=== PATIENT | male | born 1940 | race Caucasian/White ===

== ENCOUNTER → 2017-07-29 15:21 | Outpatient (CLI) | payer MEDICARE, SELFPAY ==
--- NOTE | 2017-07-29 15:23 | ECHOD_ITS ---
Reason For Study: AFIB Procedure This was a 2D Doppler, Color Flow transthoracic echocardiogram. Exam performed in department. Left Ventricle Normal LV size. Severe concentric left ventricular hypertrophy. The estimated ejection fraction is 37 %. Moderate global left ventricular systolic dysfunction. There is moderate global hypokinesis of the left ventricle. Right Ventricle Normal RV size. Normal systolic function. Atria The left atrium is mildly enlarged. The right atrium is mildly enlarged. Patent foramen ovale. Mitral Valve Normal mitral valve. Mild (1+) eccentric mitral valve insufficiency. Tricuspid Valve Normal tricuspid valve. Mild (1+) tricuspid valve insufficiency. Pulmonary artery systolic pressure is 32 mmHg. Aortic Valve Trisinus/trileaflet aortic valve. Mild focal aortic valve calcification. Trivial aortic valve insufficiency. Pulmonic Valve Normal pulmonic valve. Great Vessels Normal aortic root. The pulmonary artery is normal size. Normal inferior vena cava. Pericardium/Pleural No pericardial effusion. Medication 20 gauge I.V. with prn adaptor inserted into right arm. Performed a rapid injection of agitated mix of 9 cc saline and 1cc air to assess for atrial septal defect. MMode/2D Measurements & Calculations LVIDd: 3.7 cm IVSd: 1.7 cm LVOT diam: 2.0 cm LVIDs: 3.0 cm LVPWd: 1.7 cm LVOT area: 3.2 cm2 RVDd: 3.8 cm FS: 20.5 % Ao root diam: 4.1 cm LAV(MOD-bp): 76.3 ml LA dimension: 4.5 cm LAV(MOD-bp) Indexed: 36.2 ml/m2 LA A4 area: 22.6 cm2 LAV(MOD-sp2): 78.6 ml LAV(MOD-sp4): 65.6 ml RA A4 area: 22.9 cm2 Doppler Measurements & Calculations MV E max moriah: 86.5 cm/sec Ao V2 max: 115.7 cm/sec LV V1 max: 68.4 cm/sec Ao max P.4 mmHg LV V1 max P.9 mmHg BRIDGET(V,D): 1.9 cm2 TR max moriah: 260.5 cm/sec TR max P.2 mmHg Interpretation Summary Moderate global left ventricular systolic dysfunction. The estimated ejection fraction is 37 %. Severe concentric left ventricular hypertrophy. Normal LV size. Pulmonary artery systolic pressure is 32 mmHg. Patent foramen ovale. Ordering Physician: Christ Ruiz Referring Physician: CAN MATHIAS Performed By: Monalisa Wade RDCS, RVT
[2017-07-29 17:09] LABS: Anion Gap 5 (5-15); BUN 18 mg/dL (7-18); BUN/Creat Ratio 17.3 RATIO (10-20); Calcium,Total 9.1 mg/dL (8.5-10.1); Chloride 106 mmol/L (98-107); Creatinine, Serum 1.04 mg/dL (0.70-1.30); EST Glomerular Filtration Rate 74 mL/min (>60); Est Glom Filt Rate - Afr Amer 89 mL/min (>60); Glucose 90 mg/dL (74-106); Sodium Level 141 mmol/L (136-145)
[2017-07-29 17:20] LABS: BNP,B-Type NATRIURETIC PEPTIDE 281.8 pg/mL (0-100)
== END ==
PROVIDERS: Family Provider Family Medicine; PCP Family Medicine; Visit Provider Internal Medicine Cardiovascular Disease
DX: I34.0 Nonrheumatic mitral (valve) insufficiency (principal); R06.00 Dyspnea, unspecified
CPT/HCPCS: 80048; 83880; 93306; A4216

== ENCOUNTER → 2017-09-10 10:01 | Outpatient (CLI) | payer MEDICARE, SELFPAY ==
[2017-09-10 11:55] LABS: Anion Gap 4 (5-15); BUN 23 mg/dL (7-18); BUN/Creat Ratio 19.5 RATIO (10-20); Calcium,Total 9.4 mg/dL (8.5-10.1); Chloride 104 mmol/L (98-107); Creatinine, Serum 1.18 mg/dL (0.70-1.30); EST Glomerular Filtration Rate 64 mL/min (>60); Est Glom Filt Rate - Afr Amer 77 mL/min (>60); Glucose 94 mg/dL (74-106); Potassium 4.7 mmol/L (3.5-5.1); Sodium Level 140 mmol/L (136-145)
== END ==
PROVIDERS: Family Provider Family Medicine; PCP Family Medicine; Visit Provider Internal Medicine Cardiovascular Disease
DX: I50.22 Chronic systolic (congestive) heart failure (principal); I48.1 Persistent atrial fibrillation; R94.31 Abnormal electrocardiogram [ECG] [EKG]; I34.0 Nonrheumatic mitral (valve) insufficiency; R06.00 Dyspnea, unspecified; I45.89 Other specified conduction disorders; E78.5 Hyperlipidemia, unspecified; Z86.79 Personal history of other diseases of the circulatory system; Z98.890 Other specified postprocedural states
CPT/HCPCS: 36415; 80048

== ENCOUNTER → 2017-09-25 09:34 | Outpatient (CLI) | payer MEDICARE, SELFPAY ==
[2017-09-25 11:25] LABS: AST(SGOT) 28 U/L (15-37); Alanine Aminotransfer ALT/SGPT 29 U/L (16-61); Albumin, Serum 3.6 g/dL (3.2-5.0); Alkaline Phosphatase 144 U/L (45-117); Anion Gap 5 (5-15); BUN 19 mg/dL (7-18); BUN/Creat Ratio 16.5 RATIO (10-20); Bilirubin, Direct 0.17 mg/dL (0.00-0.30); Chloride 107 mmol/L (98-107); Cholesterol 214 mg/dL (200); Creatinine, Serum 1.15 mg/dL (0.70-1.30); EST Glomerular Filtration Rate 66 mL/min (>60); Est Glom Filt Rate - Afr Amer 80 mL/min (>60); Globulin 3.8 g/dL (2.2-4.2); Glucose 100 mg/dL (74-106); High Density Lipoprotein 43 mg/dL; Magnesium 2.4 mg/dL (1.6-2.6); Potassium 3.8 mmol/L (3.5-5.1); Protein, Total 7.4 g/dL (6.4-8.2); Sodium Level 142 mmol/L (136-145); Triglycerides 111 mg/dL; Very Low Density Lipoprotein 22 mg/dL (5-40)
[2017-09-26 20:07] LABS: Albumin 3.6 g/dL (2.9-4.4); Alpha-1-Globulins 0.2 g/dL (0.0-0.4); Alpha-2-Globulins 0.7 g/dL (0.4-1.0); Free Lambda Light Chains 14.7 mg/L (5.7-26.3); Gamma Globulin 1.4 g/dL (0.4-1.8); Immunoglobulin A 186 mg/dL (61-437); Immunoglobulin G 1431 mg/dL (700-1600); Immunoglobulin M 45 mg/dL (15-143); PROEL- TOTAL PROTEIN 6.8 g/dL (6.0-8.5)
== END ==
PROVIDERS: Family Provider Family Medicine; PCP Family Medicine; Visit Provider Internal Medicine Cardiovascular Disease
DX: E78.5 Hyperlipidemia, unspecified (principal); R06.00 Dyspnea, unspecified; I50.22 Chronic systolic (congestive) heart failure; I34.0 Nonrheumatic mitral (valve) insufficiency; I45.89 Other specified conduction disorders; I48.1 Persistent atrial fibrillation; Z98.890 Other specified postprocedural states; Z86.79 Personal history of other diseases of the circulatory system
CPT/HCPCS: 80048; 80061; 80076; 82784; 83735; 83883; 84165; 86334

== ENCOUNTER → 2017-12-09 16:37 | Outpatient (CLI) | payer MEDICARE, SELFPAY ==
--- NOTE | 2017-12-09 16:41 | RAD_ITS ---
STUDY: X-RAY CHEST REASON FOR EXAM: Male, 77 years old. Cough x3 weeks TECHNIQUE: PA and lateral views of the chest. COMPARISON: None. FINDINGS: Right perihilar granulomas. The lungs are clear and expanded. There is no demonstrated pleural abnormality. Normal size heart. Normal mediastinum and gracia. Normal visualized pulmonary arteries. Normal visualized aortic arch and descending thoracic aorta. Normal visualized thoracic spine. Normal visualized ribs, clavicles, and shoulders. There is no demonstrated abnormality of the visualized soft tissue structures of the upper abdomen. RAD/Chest PA and Lateral IMPRESSION: Normal x-ray examination of the chest. Electronically Signed: Jian Ventura DO at 18:04 EDT Tel , Service support ,
== END ==
PROVIDERS: Family Provider Family Medicine; PCP Family Medicine; Visit Provider Nurse Practitioner Family
DX: R05 Cough (principal)
CPT/HCPCS: 71046

== ENCOUNTER → 2018-04-27 13:48 | Outpatient (CLI) | payer MEDICARE, SELFPAY ==
--- NOTE | 2018-04-27 13:50 | ECHOD_ITS ---
Reason For Study: ARRHYTHMIA Procedure This was a 2D Doppler, Color Flow transthoracic echocardiogram. Exam performed in department. Left Ventricle Normal LV size. Severe concentric left ventricular hypertrophy. The estimated ejection fraction is 45 %. Stage 3 diastolic dysfunction. There is mild global hypokinesis of the left ventricle. Atria Normal left atrium. Normal right atrium. Tricuspid Valve Normal tricuspid valve. Mild (1+) tricuspid valve insufficiency. Pulmonary artery systolic pressure is 30 mmHg. Aortic Valve Trisinus/trileaflet aortic valve. Mild focal aortic valve calcification. Pulmonic Valve Normal pulmonic valve. Great Vessels Normal aortic root. The pulmonary artery is normal size. Normal inferior vena cava. Pericardium/Pleural No pericardial effusion. MMode/2D Measurements & Calculations LVIDd: 4.1 cm IVSd: 1.7 cm Ao root diam: 3.3 cm LVIDs: 3.3 cm LVPWd: 1.6 cm RVDd: 3.8 cm FS: 19.7 % LAV(MOD-bp): 67.4 ml LA A4 area: 22.0 cm2 LA dimension(2D): 3.8 cm LAV(MOD-bp) Indexed: 32.3 ml/m2 LAV(MOD-sp2): 62.3 ml LAV(MOD-sp4): 70.1 ml RA A4 area: 21.0 cm2 Doppler Measurements & Calculations MV E max moriah: 85.1 cm/sec Ao V2 max: 118.3 cm/sec LV V1 max: 85.1 cm/sec MV A max moriah: 36.7 cm/sec Ao max P.6 mmHg LV V1 max P.9 mmHg MV E/A: 2.3 PA V2 max: 70.1 cm/sec TR max moriah: 254.3 cm/sec TR max P.9 mmHg Interpretation Summary Normal LV size. The estimated ejection fraction is 45 %. Stage 3 diastolic dysfunction. Severe concentric left ventricular hypertrophy. Mild (1+) tricuspid valve insufficiency. The global longitudinal strain = -10% (abnormal). Compared to previous study, the left ventricular systolic function has improved.. Ordering Physician: Christ Ruiz Referring Physician: Kev Infante Performed By: Sadia Valenzuela, PENELOPE, RVT
== END ==
PROVIDERS: Family Provider Family Medicine; PCP Family Medicine; Referring Provider Internal Medicine Cardiovascular Disease; Visit Provider Internal Medicine Cardiovascular Disease
DX: I42.8 Other cardiomyopathies (principal)
CPT/HCPCS: 93306

== ENCOUNTER → 2018-09-22 | Outpatient (CLI) | payer MEDICARE, SELFPAY ==
[2018-09-22 13:06] VITALS: BMI 29.2
[2018-09-22 14:40] LABS: BNP,B-Type NATRIURETIC PEPTIDE 195.6 pg/mL (0-100)
[2018-09-22 14:41] LABS: Anion Gap 7 (5-15); BUN 20 mg/dL (7-18); BUN/Creat Ratio 15.2 RATIO (10-20); Chloride 102 mmol/L (98-107); Creatinine, Serum 1.32 mg/dL (0.70-1.30); EST Glomerular Filtration Rate 56 mL/min (>60); Est Glom Filt Rate - Afr Amer 68 mL/min (>60); Glucose 94 mg/dL (74-106); Magnesium 2.6 mg/dL (1.6-2.6); Potassium 3.8 mmol/L (3.5-5.1); Sodium Level 140 mmol/L (136-145); Thyroid Stim Hormone (TSH) 1.56 uIU/mL (0.358-3.74)
== END | disposition home or self-care (01) ==
PROVIDERS: Family Provider Family Medicine; PCP Family Medicine; Referring Provider Internal Medicine Cardiovascular Disease; Visit Provider Internal Medicine Cardiovascular Disease
DX: I42.8 Other cardiomyopathies (principal); I49.8 Other specified cardiac arrhythmias
CPT/HCPCS: 36415; 80048; 83735; 83880; 84443

== ENCOUNTER → 2018-11-16 | Outpatient (CLI) | payer MEDICARE, SELFPAY ==
[2018-09-22 13:06] VITALS: BMI 29.2
[2018-11-16 15:24] LABS: Anion Gap 8 (5-15); BUN 23 mg/dL (7-18); BUN/Creat Ratio 18.4 RATIO (10-20); Calcium,Total 8.9 mg/dL (8.5-10.1); Chloride 105 mmol/L (98-107); Creatinine, Serum 1.25 mg/dL (0.70-1.30); EST Glomerular Filtration Rate 60 mL/min (>60); Est Glom Filt Rate - Afr Amer 72 mL/min (>60); Glucose 85 mg/dL (74-106); Sodium Level 141 mmol/L (136-145)
[2018-11-16 15:31] LABS: BNP,B-Type NATRIURETIC PEPTIDE 298.4 pg/mL (0-100)
== END | disposition home or self-care (01) ==
PROVIDERS: Family Provider Family Medicine; PCP Family Medicine; Referring Provider Internal Medicine Cardiovascular Disease; Visit Provider Internal Medicine Cardiovascular Disease
DX: E78.5 Hyperlipidemia, unspecified (principal); I50.22 Chronic systolic (congestive) heart failure; I34.0 Nonrheumatic mitral (valve) insufficiency; I42.8 Other cardiomyopathies; I45.89 Other specified conduction disorders; I48.1 Persistent atrial fibrillation; I51.9 Heart disease, unspecified; R06.00 Dyspnea, unspecified; R94.31 Abnormal electrocardiogram [ECG] [EKG]; Z86.79 Personal history of other diseases of the circulatory system; Z98.890 Other specified postprocedural states
CPT/HCPCS: 36415; 80048; 83880

== ENCOUNTER → 2018-11-26 | Outpatient (CLI) | payer MEDICARE, SELFPAY ==
[2018-09-22 13:06] VITALS: BMI 29.2
--- NOTE | 2018-11-26 10:49 | ECHOD_ITS ---
Reason For Study: CHF Procedure This was a 2D Doppler, Color Flow transthoracic echocardiogram. Exam performed in department. Left Ventricle Normal LV size. Moderate concentric left ventricular hypertrophy. The estimated ejection fraction is 30 %. Moderately severe global left ventricular systolic dysfunction. Stage 3 diastolic dysfunction. There is moderate to severe global hypokinesis of the left ventricle. Right Ventricle Normal RV size. Normal systolic function. Atria The left atrium is moderately enlarged. Normal right atrium. Mitral Valve Normal mitral valve. Tricuspid Valve Normal tricuspid valve. Aortic Valve Normal aortic valve. Pulmonic Valve Normal pulmonic valve. Great Vessels Normal aortic root. The pulmonary artery is normal size. Normal inferior vena cava. Pericardium/Pleural No pericardial effusion. MMode/2D Measurements & Calculations LVIDd: 4.5 cm IVSd: 1.4 cm Ao root diam: 3.9 cm LVIDs: 3.9 cm LVPWd: 1.5 cm RVDd: 3.8 cm FS: 13.8 % LAV(MOD-bp): 77.6 ml LA A4 area: 25.2 cm2 LA dimension(2D): 4.2 cm LAV(MOD-bp) Indexed: 37.2 ml/m2 LAV(MOD-sp2): 60.0 ml LAV(MOD-sp4): 94.8 ml RA A4 area: 19.1 cm2 Doppler Measurements & Calculations MV E max neto: 59.1 cm/sec Lat Peak E' Neto: 6.6 cm/sec Med Peak E' Neto: 3.5 cm/sec MV A max neto: 66.0 cm/sec E/E' lat: 9.0 E/E' med: 16.6 MV E/A: 0.90 Ao V2 max: 95.6 cm/sec LV V1 max: 63.5 cm/sec TR max neto: 274.3 cm/sec Ao max P.7 mmHg LV V1 max P.7 mmHg TR max P.2 mmHg Interpretation Summary Normal LV size. The estimated ejection fraction is 30 %. Moderately severe global left ventricular systolic dysfunction. There is moderate to severe global hypokinesis of the left ventricle. Stage 3 diastolic dysfunction. Compared to previous study, the left ventricular systolic function has worsened.. Ordering Physician: Christ Ruiz Referring Physician: CAN MATHIAS Performed By: Monalisa Wade, PENELOPE, RVT
== END | disposition home or self-care (01) ==
LOC: CVS 10:48
PROVIDERS: Family Provider Family Medicine; PCP Family Medicine; Referring Provider Internal Medicine Cardiovascular Disease; Visit Provider Internal Medicine Cardiovascular Disease
DX: I50.22 Chronic systolic (congestive) heart failure (principal); R06.00 Dyspnea, unspecified; R94.31 Abnormal electrocardiogram [ECG] [EKG]; I34.0 Nonrheumatic mitral (valve) insufficiency; I42.8 Other cardiomyopathies; I45.89 Other specified conduction disorders; I48.1 Persistent atrial fibrillation; I51.9 Heart disease, unspecified; E78.5 Hyperlipidemia, unspecified; Z86.79 Personal history of other diseases of the circulatory system; Z98.890 Other specified postprocedural states
CPT/HCPCS: 93306

== ENCOUNTER 2018-12-04 06:57 | Day surgery (SDC) | payer MEDICARE, SELFPAY ==
[2018-09-22 13:06] VITALS: BMI 29.2
--- NOTE | 2018-12-02 09:30 | RAD_ITS ---
STUDY: X-RAY CHEST REASON FOR EXAM: Male, 78 years old. CHF, precardiac catheter TECHNIQUE: PA and lateral views of the chest. COMPARISON: Prior study of 12/09/2017 FINDINGS: There is a tiny calcified granuloma of the right upper lobe. There is no demonstrated pleural abnormality. Normal size heart. There are calcified right mediastinal nodes. Normal visualized pulmonary arteries. Normal visualized aortic arch and descending thoracic aorta. Normal visualized thoracic spine. Normal visualized ribs, clavicles, and shoulders. There is no demonstrated abnormality of the visualized soft tissue structures of the upper abdomen. RAD/Chest PA and Lateral IMPRESSION: Calcified right mediastinal nodes. Tiny calcified granuloma of the right upper lobe. No acute cardiopulmonary disease process is seen. Chest findings are stable in the interval. Electronically Signed: Jace Davey MD at 23:30 EDT , Service support ,
[2018-12-02 13:22] VITALS: BMI 29.2
[2018-12-02 15:03] LABS: Absolute Lymphocyte Count 1.68 X10^3/ul (0.83-4.51); Absolute Neutrophil Count 6.3 X10^3/uL (2.0-7.7); Basophil# 0.05 X10^3/uL; Basophil% 0.5 % (0-1); Eosinophil# 0.17 X10^3/uL; Eosinophils% 1.9 % (0-5); Hematocrit 43.2 % (40-54); Lymphocyte # 1.68 X10^3/ul (4.0); Lymphocyte % 18.4 % (19-41); Mean Corp Hgb Conc 32.4 g/gl (32-36); Mean Corpuscular Hgb 29.5 pg (27.0-32.0); Mean Corpuscular Volume 91.1 fL (80-94); Mean Platelet Vol. 9.7 fl (6.2-12.0); Monocyte# 0.87 X10^3/uL; Monocyte% 9.5 % (0-10); Neutrophil # 6.33 X10^3/uL (2.7-7.7); Neutrophil % 69.5 % (47-70); POSITIVE COUNT NO; POSITIVE DIFFERENTIAL NO; POSITIVE MORPHOLOGY NO; Platelet Count 395 K/mm3 (150-450); RBC Distribution Width CV 13.6 % (11.6-14.6); RBC Distribution Width SD 44.9 fl (35.1-43.9); Red Blood Count 4.74 M/mm3 (4.6-6.2); White Blood Count 9.1 K/mm3 (4.4-11.0)
[2018-12-02 15:32] LABS: Anion Gap 6 (5-15); BUN 16 mg/dL (7-18); BUN/Creat Ratio 13.2 RATIO (10-20); Calcium,Total 9.3 mg/dL (8.5-10.1); Chloride 102 mmol/L (98-107); Creatinine, Serum 1.21 mg/dL (0.70-1.30); EST Glomerular Filtration Rate 62 mL/min (>60); Est Glom Filt Rate - Afr Amer 75 mL/min (>60); Glucose 104 mg/dL (74-106); Potassium 3.9 mmol/L (3.5-5.1); Sodium Level 140 mmol/L (136-145)
[2018-12-03 09:25] VITALS: BMI 29.2
== END 2018-12-04 13:00 | disposition home or self-care (01) ==
LOC: CLSP 06:59
PROVIDERS: Family Provider Family Medicine; PCP Family Medicine; Referring Provider Internal Medicine Cardiovascular Disease; Visit Provider Internal Medicine Cardiovascular Disease
DX: I42.8 Other cardiomyopathies (principal); I50.22 Chronic systolic (congestive) heart failure; I44.7 Left bundle-branch block, unspecified; I48.0 Paroxysmal atrial fibrillation; I25.10 Atherosclerotic heart disease of native coronary artery without angina pectoris; E78.5 Hyperlipidemia, unspecified; M19.90 Unspecified osteoarthritis, unspecified site; E66.9 Obesity, unspecified; Z68.29 Body mass index [BMI] 29.0-29.9, adult; Z86.79 Personal history of other diseases of the circulatory system; Z79.02 Long term (current) use of antithrombotics/antiplatelets; Z79.899 Other long term (current) drug therapy
CPT/HCPCS: 36415; 71046; 80048; 85025; 93458; 93571; 93572; 99152; 99153; J0153; J7040; C1769; C1887; C1894; Q9967

== ENCOUNTER → 2019-07-19 12:53 | Outpatient (CLI) | payer MEDICARE, SELFPAY ==
[2019-06-18 14:03] VITALS: BMI 28.7
--- NOTE | 2019-07-19 12:54 | ECHOD_ITS ---
Reason For Study: Dyspnea/SOB Procedure This was a 2D Doppler, Color Flow transthoracic echocardiogram. Myocardial strain analysis was performed in this exam to aid in the assessment of cardiac function. Exam performed in department. Left Ventricle Normal LV size. Severe concentric left ventricular hypertrophy. The estimated ejection fraction is 53 %. Left ventricular systolic function is lower limits of normal. Stage 3 diastolic dysfunction. There is borderline global hypokinesis of the left ventricle. Right Ventricle Normal RV size. ICD or pacer leads identified within the right ventricle. Normal systolic function. Atria Normal left atrium. Normal right atrium. Mitral Valve Normal mitral valve. Tricuspid Valve Normal tricuspid valve. Mild (1+) tricuspid valve insufficiency. Pulmonary artery systolic pressure is 35 mmHg. Aortic Valve Normal aortic valve. Trisinus/trileaflet aortic valve. Pulmonic Valve Normal pulmonic valve. Great Vessels Normal aortic root. The pulmonary artery is normal size. Normal inferior vena cava. Pericardium/Pleural No pericardial effusion. MMode/2D Measurements & Calculations LVIDd: 4.0 cm IVSd: 1.8 cm Ao root diam: 3.5 cm LVIDs: 2.9 cm LVPWd: 2.0 cm RVDd: 4.6 cm FS: 26.6 % LAV(MOD-bp): 58.2 ml LVAd ap4: 29.6 cm2 SV(MOD-sp4): 46.7 ml LAV(MOD-bp) Indexed: 28.0 ml/m2 EDV(MOD-sp4): 84.4 ml LAV(MOD-sp2): 59.0 ml EDV(sp4-el): 88.4 ml LAV(MOD-sp4): 55.1 ml LVAs ap4: 18.3 cm2 ESV(MOD-sp4): 37.7 ml ESV(sp4-el): 37.3 ml EF(MOD-sp4): 55.4 % EF(sp4-el): 57.8 % SV(sp4-el): 51.1 ml LA A4 area: 19.5 cm2 LA dimension(2D): 4.5 cm RA A4 area: 20.9 cm2 Doppler Measurements & Calculations MV E max neto: 73.6 cm/sec Lat Peak E' Neto: 6.9 cm/sec Med Peak E' Neto: 3.7 cm/sec MV A max neto: 17.6 cm/sec E/E' lat: 10.7 E/E' med: 20.0 MV E/A: 4.2 Ao V2 max: 138.0 cm/sec LV V1 max: 116.6 cm/sec PA V2 max: 82.8 cm/sec Ao max P.6 mmHg LV V1 max P.4 mmHg Ao V2 mean: 102.8 cm/sec Ao mean P.7 mmHg Ao V2 VTI: 30.0 cm TR max neto: 277.1 cm/sec TR max P.7 mmHg Interpretation Summary Normal LV size. Severe concentric left ventricular hypertrophy. The estimated ejection fraction is 53 %. Left ventricular systolic function is lower limits of normal. Stage 3 diastolic dysfunction. The global longitudinal strain = -10 with apical sparing.% (abnormal). Compared to previous study, the left ventricular systolic function has improved.. The prior global longitudinal strain was -6 % . Ordering Physician: Christ Ruiz Referring Physician: Kev Infante Performed By: Carmen Mora, PENELOPE, RVT
== END ==
PROVIDERS: Family Provider Family Medicine; PCP Family Medicine; Referring Provider Internal Medicine Cardiovascular Disease; Visit Provider Internal Medicine Cardiovascular Disease
DX: I48.0 Paroxysmal atrial fibrillation (principal); I42.8 Other cardiomyopathies; I43 Cardiomyopathy in diseases classified elsewhere; E85.4 Organ-limited amyloidosis; R06.00 Dyspnea, unspecified; Z95.810 Presence of automatic (implantable) cardiac defibrillator
CPT/HCPCS: 93306

== ENCOUNTER → 2019-07-21 15:01 | Outpatient (CLI) | payer MEDICARE, SELFPAY ==
[2019-07-21 14:11] VITALS: BMI 29.0
--- NOTE | 2019-07-21 15:10 | RAD_ITS ---
STUDY: X-RAY CHEST REASON FOR EXAM: Male, 79 years old. checking for lead placement of defibrillator, patient has no complaints TECHNIQUE: PA and lateral views of the chest. COMPARISON: 12/02/2018 FINDINGS: Three lead cardiac conduction device is seen via the left subclavian vein with lead tips projecting over the right atrium and right ventricle, respectively, with left atrial lead projecting over the left atrium/posterior cardiac border. There appears to be a granuloma in the right upper lobe, stable. No airspace consolidation. There is no demonstrated pleural abnormality. Normal size heart. There are calcified mediastinal lymph nodes. Normal visualized pulmonary arteries. Normal visualized aortic arch and descending thoracic aorta. Normal visualized thoracic spine. Normal visualized ribs, clavicles, and shoulders. There is no demonstrated abnormality of the visualized soft tissue structures of the upper abdomen. RAD/Chest PA and Lateral IMPRESSION: Three lead cardiac conduction device is seen via the left subclavian vein with lead tips projecting over the right atrium and right ventricle, respectively, with left atrial lead projecting over the left atrium/posterior cardiac border. No pneumothorax. Electronically Signed: Eugene Sellers MD ([place]) at 12:12 EST , Service support ,
== END ==
PROVIDERS: PCP Family Medicine; Referring Provider Internal Medicine Cardiovascular Disease; Visit Provider Internal Medicine Cardiovascular Disease
DX: Z95.810 Presence of automatic (implantable) cardiac defibrillator (principal)
CPT/HCPCS: 71046

== ENCOUNTER → 2020-01-21 07:37 | Outpatient (CLI) | payer MEDICARE, SELFPAY ==
[2019-07-21 14:11] VITALS: BMI 29.0
--- NOTE | 2020-01-21 07:39 | ECHOD_ITS ---
Reason For Study: S/P Bi-V pacer and adjustment Procedure This was a 2D Doppler, Color Flow transthoracic echocardiogram. Myocardial strain analysis was performed in this exam to aid in the assessment of cardiac function. Exam performed in department. Left Ventricle Normal LV size. Moderate concentric left ventricular hypertrophy. The estimated ejection fraction is 55 %. Stage 3 diastolic dysfunction. No regional wall motion abnormalities noted. Right Ventricle Normal RV size. ICD or pacer leads identified within the right ventricle. Normal systolic function. Atria The left atrium is moderately enlarged. Normal right atrium. Mitral Valve Normal mitral valve. Tricuspid Valve Normal tricuspid valve. Mild (1+) tricuspid valve insufficiency. Pulmonary artery systolic pressure is 36 mmHg. Great Vessels Normal aortic root. The pulmonary artery is normal size. Normal inferior vena cava. Pericardium/Pleural No pericardial effusion. MMode/2D Measurements & Calculations LVIDd: 4.0 cm IVSd: 1.6 cm LVOT diam: 2.1 cm LVIDs: 2.5 cm LVPWd: 1.7 cm LVOT area: 3.4 cm2 RVDd: 4.1 cm FS: 37.1 % LA dimension: 3.9 cm LAV(MOD-bp): 75.7 ml LA A4 area: 23.8 cm2 LAV(MOD-bp) Indexed: 36.3 ml/m2 LAV(MOD-sp2): 62.0 ml LAV(MOD-sp4): 77.9 ml RA A4 area: 19.9 cm2 Time Measurements MV dec time: 0.23 sec Doppler Measurements & Calculations MV E max neto: 86.1 cm/sec Lat Peak E' Neto: 5.4 cm/sec Med Peak E' Neto: 4.4 cm/sec MV A max neto: 47.2 cm/sec E/E' lat: 15.9 E/E' med: 19.4 MV E/A: 1.8 MV V2 max: 93.6 cm/sec MV P1/2t max neto: 94.4 cm/sec Ao V2 max: 139.1 cm/sec MV max P.5 mmHg MV P1/2t: 111.5 msec Ao max P.7 mmHg MV V2 mean: 45.6 cm/sec Ao V2 mean: 92.1 cm/sec MV mean P.00 mmHg MV dec slope: 247.9 cm/sec2 Ao mean P.0 mmHg MV V2 VTI: 26.7 cm MVA(P1/2t): 2.0 cm2 Ao V2 VTI: 29.1 cm MVA(VTI): 2.2 cm2 BRIDGET(I,D): 2.0 cm2 BRIDGET(V,D): 1.9 cm2 LV V1 max: 76.8 cm/sec SV(LVOT): 57.8 ml PA V2 max: 85.7 cm/sec LV V1 max P.5 mmHg LV V1 mean P.3 mmHg LV V1 mean: 52.0 cm/sec LV V1 VTI: 17.1 cm TR max neto: 282.0 cm/sec TR max P.8 mmHg Interpretation Summary Normal LV size. Moderate concentric left ventricular hypertrophy. The estimated ejection fraction is 55 %. Pulmonary artery systolic pressure is 36 mmHg. Mild (1+) tricuspid valve insufficiency. Stage 3 diastolic dysfunction. Compared to previous study, the left ventricular systolic function is the same.. The global longitudinal strain = -13.9% (abnormal). The prior global longitudinal strain was -10 % . Ordering Physician: Christ Ruiz Referring Physician: Kev Infante Performed By: Raudel Alvarez RCS
== END ==
PROVIDERS: PCP Family Medicine; Referring Provider Internal Medicine Cardiovascular Disease; Visit Provider Internal Medicine Cardiovascular Disease
DX: E85.4 Organ-limited amyloidosis (principal); I43 Cardiomyopathy in diseases classified elsewhere; I42.8 Other cardiomyopathies; I25.10 Atherosclerotic heart disease of native coronary artery without angina pectoris; I48.0 Paroxysmal atrial fibrillation; I47.1 Supraventricular tachycardia; I34.0 Nonrheumatic mitral (valve) insufficiency; I50.42 Chronic combined systolic (congestive) and diastolic (congestive) heart failure; Z95.810 Presence of automatic (implantable) cardiac defibrillator
CPT/HCPCS: 93306

== ENCOUNTER → 2020-01-26 13:48 | Outpatient (CLI) | payer MEDICARE, SELFPAY ==
[2020-01-26 13:11] VITALS: BMI 30.2
[2020-01-26 14:40] LABS: BNP,B-Type NATRIURETIC PEPTIDE 346.8 pg/mL (0-100)
[2020-01-26 14:48] LABS: Anion Gap 6 (5-15); BUN 27 mg/dL (7-18); BUN/Creat Ratio 18.6 RATIO (10-20); Calcium,Total 9.2 mg/dL (8.5-10.1); Chloride 107 mmol/L (98-107); Creatinine, Serum 1.45 mg/dL (0.70-1.30); EST Glomerular Filtration Rate 50 mL/min (>60); Est Glom Filt Rate - Afr Amer 60 mL/min (>60); Glucose 142 mg/dL (74-106); Sodium Level 139 mmol/L (136-145)
== END ==
PROVIDERS: PCP Family Medicine; Referring Provider Internal Medicine Cardiovascular Disease; Visit Provider Internal Medicine Cardiovascular Disease
DX: R06.00 Dyspnea, unspecified (principal)
CPT/HCPCS: 36415; 80048; 83880

== ENCOUNTER 2020-06-23 12:34 | Outpatient (CLI) | payer MEDICARE, SELFPAY ==
[2020-01-26 13:11] VITALS: BMI 30.2
[2020-06-23] VITALS (7 sets, daily range): BP systolic 117–129; BP diastolic 52–88; PULSE 58–85; RESP 16–20; TEMP 36–37.2; O2SAT 99–100; BMI 28.7
== END 2020-06-23 15:30 | disposition home or self-care (01) ==
LOC: MS2OUT 12:35 → MS2 12:35
PROVIDERS: PCP Family Medicine; Referring Provider Nurse Practitioner Acute Care; Visit Provider Nurse Practitioner Acute Care
DX: U07.1 COVID-19 (principal)
CPT/HCPCS: 96365; J7050; M0239; Q0239

== ENCOUNTER → 2020-07-12 14:32 | Outpatient (CLI) | payer MEDICARE, SELFPAY ==
[2020-07-11 16:35] VITALS: BMI 29.2
--- NOTE | 2020-07-12 14:45 | RAD_ITS ---
STUDY: X-RAY CHEST REASON FOR EXAM: Male, 80 years old. Chronic cough, post COVID TECHNIQUE: PA and lateral views of the chest. COMPARISON: Comparison is made with prior study dated 07/21/2019. FINDINGS: Hyperinflation. There now is evidence of bilateral patchy pulmonary infiltrates worse in the right hemithorax. Normal size heart. A left-sided dual-chamber pacemaker is seen. There are calcified mediastinal lymph nodes. Normal visualized pulmonary arteries. Normal visualized aortic arch and descending thoracic aorta. There are diffuse degenerative changes of the visualized thoracic spine. A metallic pin is seen in the right humeral head. There is no demonstrated abnormality of the visualized soft tissue structures of the upper abdomen. RAD/Chest PA and Lateral IMPRESSION: Patchy bilateral pulmonary infiltrates worse in the right hemithorax. Electronically Signed: Abraham Moffett MD at 15:24 EST , Service support ,
== END ==
PROVIDERS: PCP Family Medicine; Referring Provider Family Medicine; Visit Provider Family Medicine
DX: U07.1 COVID-19 (principal)
CPT/HCPCS: 71046

== ENCOUNTER → 2020-08-10 15:19 | Outpatient (CLI) | payer MEDICARE, SELFPAY ==
[2020-07-11 16:35] VITALS: BMI 29.2
[2020-08-10 11:00] VITALS: BMI 28.8
--- NOTE | 2020-08-10 15:21 | US_ITS ---
STUDY: RENAL ULTRASOUND - COMPLETE REASON FOR EXAM: Male, 80 years old. Decreased urine flow. TECHNIQUE: Ultrasound evaluation of the kidneys was performed with real-time and static aparicio-scale imaging. COMPARISON: None. FINDINGS: RIGHT KIDNEY: Normal location of the right kidney, which is normal in size. The right kidney measures 10.7 cm. There is a normal cortex of the right kidney. The renal cortex measures 1.1 cm. There is no right renal mass or cyst. There are no right renal calculi. There is no right hydronephrosis. DISTAL RIGHT URETER: There is non-visualization of the distal right ureter. There is no demonstrated right ureterovesical junction calculus. There is a visualized right ureteral jet. LEFT KIDNEY: Normal location of the left kidney, which is normal in size. The left kidney measures 10.5 cm. There is a normal cortex of the left kidney. The renal cortex measures 1.2 cm. There is a 1.8 x 1.3 x 1.3 cm simple cyst in the cortex. There are no left renal calculi. There is no left hydronephrosis. DISTAL LEFT URETER: There is non-visualization of the distal left ureter. There is no demonstrated left ureterovesical junction calculus. There is a visualized left ureteral jet. BLADDER: The distended urinary bladder has a volume of 78 ml. The empty urinary bladder has a volume of 7 ml. There is a normal wall thickness of the distended urinary bladder. There is no demonstrated mass within the urinary bladder. There are no demonstrated bladder calculi. Incidental finding is the presence of multiple calcified granulomata in the spleen. US/Kidney and Bladder IMPRESSION: Normal ultrasound of the kidneys and urinary bladder. Electronically Signed: Mau Soriano DO at 23:53 EST Tel [phone], Service support ,
== END ==
PROVIDERS: PCP Family Medicine; Referring Provider Family Medicine; Visit Provider Family Medicine
DX: N34.3 Urethral syndrome, unspecified (principal)
CPT/HCPCS: 76770

== ENCOUNTER → 2020-09-18 13:38 | Outpatient (CLI) | payer MEDICARE, SELFPAY ==
[2020-09-18 14:49] LABS: BNP,B-Type NATRIURETIC PEPTIDE 325.4 pg/mL (0-100)
[2020-09-18 14:50] LABS: Anion Gap 4 (5-15); BUN 22 mg/dL (7-18); Calcium,Total 9.5 mg/dL (8.5-10.1); Chloride 107 mmol/L (98-107); Creatinine, Serum 1.47 mg/dL (0.70-1.30); EST Glomerular Filtration Rate 49 mL/min (>60); Est Glom Filt Rate - Afr Amer 59 mL/min (>60); Glucose 98 mg/dL (74-106); Potassium 4.6 mmol/L (3.5-5.1); Sodium Level 138 mmol/L (136-145)
== END ==
PROVIDERS: PCP Family Medicine; Referring Provider Internal Medicine Cardiovascular Disease; Visit Provider Internal Medicine Cardiovascular Disease
DX: R06.00 Dyspnea, unspecified (principal); I25.10 Atherosclerotic heart disease of native coronary artery without angina pectoris; E85.4 Organ-limited amyloidosis; I43 Cardiomyopathy in diseases classified elsewhere; I42.8 Other cardiomyopathies; I50.42 Chronic combined systolic (congestive) and diastolic (congestive) heart failure; Z95.810 Presence of automatic (implantable) cardiac defibrillator
CPT/HCPCS: 36415; 80048; 83880

== ENCOUNTER 2020-09-20 21:52 | Inpatient (IN) | payer MEDICARE, SELFPAY ==
[2020-09-18 12:40] VITALS: BMI 29.8
[2020-09-20] VITALS (14 sets, daily range): BP systolic 83–147; BP diastolic 25–120; PULSE 64–73; RESP 13–18; TEMP 36.8; O2SAT 96–100; BMI 28.6; BMI 28.7
--- NOTE | 2020-09-20 18:16 | ED.RN ---
PT ARRIVED TO [facility] ER AT 181. 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
[2020-09-20 18:40] LABS: Absolute Lymphocyte Count 1.92 X10^3/uL (0.83-4.51); Absolute Neutrophil Count 9.1 X10^3/uL (2.0-7.7); Basophil% 0.8 % (0-1); Eosinophil# 0.12 X10^3/uL; Hematocrit 40.6 % (40-54); Lymphocyte # 1.92 X10^3/ul (4.0); Lymphocyte % 15.3 % (19-41); Mean Corpuscular Volume 93.8 fL (80-94); Mean Platelet Vol. 10.5 fl (6.2-12.0); Monocyte# 1.28 X10^3/uL; Monocyte% 10.2 % (0-10); NRBC Flagged by Analyzer 0 % (0-5); Neutrophil # 9.07 X10^3/uL (2.7-7.7); Neutrophil % 72.1 % (47-70); Platelet Count 407 K/mm3 (150-450); RBC Distribution Width CV 13.5 % (11.6-14.6); RBC Distribution Width SD 46.6 fl (35.1-43.9); Red Blood Count 4.33 M/mm3 (4.6-6.2); White Blood Count 12.6 K/mm3 (4.4-11.0)
[2020-09-20 18:51] LABS: International Normalized Ratio 1.3; Partial Thromboplast Time 28.4 Seconds (24.1-36.2); Prothrombin Time (Protime)PT. 15.5 SECONDS (11.7-14.9)
--- NOTE | 2020-09-20 18:51 | CON.PCM_ITS ---
Reason for Consult Date of Consultation: 09/20/20 Reason for Consultation: Syncopal episode and chest discomfort History of Present Illness: The patient is a 80 year old M with a complicated cardiac history who presented to [facility] after experiencing a syncopal episode this afternoon. A neighbor apparently found him on the garage floor after the patient had passed out. He was noted to be conscious when he was seen by his and his immediately called me by phone. He was directed to the hospital at [place]. An EKG was done which was faxed to me. It was a paced rhythm but it demonstrated subtle ST elevation in the inferior leads suspicious for an acute inferior wall myocardial infarction. STEMI was activated and the patient was brought to [facility]. [] He was seen in the office last week for shortness of breath. He is a gentleman with a history of previous atrial tachyarrhythmia nonobstructive coronary disease who had initially presented with shortness of breath and echocardiogram had been performed with demonstrated globally reduced ejection fraction estimated approximately 35-40%. He had been started on carvedilol Lasix and ZENAIDA inhibitor but he did not tolerate the carvedilol and ZENAIDA inhibitor well with his Lasix he did lose some weight and felt better. You do remember that the etiology of the cardio myopathy was not quite clear so he was sent to [facility] where he had a cardiac MRI performed with a suggestion of amyloidosis. However a second opinion sought at [facility] had some questions about the technique that was performed in [place]. He did have some shortness of breath which was noted to be progressive and we did increase his Lasix to 40 mg a day and repeated his echocardiogram which demonstrated global reduction in left ventricular systolic function estimated at 30% with stage III diastolic dysfunction. 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 He was started on tafamidis as well as optimal medical therapy. He eventually had a UNMANNED EQUIPMENT OPERATOR-D device placed in late April 2019. He has been doing well and had a recent echocardiogram which demonstrated an ejection fraction of 53% with stage III diastolic dysfunction and a global longitudinal strain score of -13.9. He has been compliant with his medications and there have been no changes. He did unfortunately contract COVID-19 and did have the monoclonal antibody. He was plagued with a cough but he has since recovered. He had called the office last week complaining of shortness of breath and was seen and was noted to have an elevated natruretic peptide and was placed on diuretic. He was noted to be in an irregular rhythm which was thought to be reversion to his atrial fibrillation tachyarrhythmia. But recheck of his defibrillator demonstrated that it was premature ventricular complexes. His previous defibrillator interrogation in early August did not demonstrate any evidence of atrial fibrillation. Past Medical History Allergies/Adverse Reactions: Allergies aspirin Adverse Reaction (Verified 09/18/20 12:40) Swelling ciprofloxacin Adverse Reaction (Verified 09/18/20 12:40) swelling metoprolol Adverse Reaction (Verified 09/18/20 12:40) weakness and collapse Penicillins Adverse Reaction (Verified 09/18/20 12:40) Swelling Sulfa (Sulfonamide Antibiotics) Adverse Reaction (Verified 09/18/20 12:40) swelling Home Medications: Ambulatory Orders Medication Instructions Recorded tafamidis meglumine 20 mg capsule 80 mg PO DAILY 02/04/19 tadalafil 10 mg tablet 10 mg PO DAILY PRN #30 tab 01/26/20 cholecalciferol (vitamin D3) 25 25 mcg PO DAILY 04/10/20 mcg (1,000 unit) capsule amiodarone 200 mg tablet 200 mg PO DAILY #90 tablet 09/18/20 furosemide 40 mg tablet 40 mg PO DAILY #90 tablet 09/18/20 potassium chloride 20 mEq 20 meq PO DAILY #90 tablet 09/18/20 tablet,extended release Past Medical History (Chronic Problems): Chronic Problems (Last Updated 09/19/20 @ 18:04 by Ifeoma Allen) 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) TTR-wt RV biopsy 02/02/19 Nonischemic cardiomyopathy (Chronic) 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 Denies: Chest Discomfort, Orthopnea, PND, Peripheral Edema, Palpitations, Lightheadedness, Dizziness, Near Syncope Respiratory: Denies: Cough, Sputum Production, Hemoptysis Gastrointestinal: Denies: Hematemesis, Hematochezia, Melena Genitourinary: Denies: Dysuria, Hematuria Muscoloskeletal: Denies: Myalgias Skin: Denies: Rash Neurological: Denies: Dizziness Psychiatric: Denies: Anxiety, Delusions Hematologic/ Lymphatic: Denies: Anemia Subjectve: Pleasant gentleman in no distress. Complaining of mild chest discomfort. Objective: Body Mass Index (BMI) 29.8 General: Awake, Alert, Oriented x 3 HEENT: PERRL, EOMI, Sclera Non Icteric, - - Mild bleeding from the nose. Neck: Supple, Good ROM, No Lymph Node Enlargement Lungs: Clear to auscultation Cardiovascular: Regular Rhythm, Normal S1, Normal S2, No Murmurs, No Rubs, No Gallops Vascular: No Carotid Bruits, Normal Femoral Pulses, Normal Radial Pulses, Normal Dorsalis Pedal Pulse, Normal Posterior Tibial Pulses Abdomen: Bowel Sounds Present, Soft, Non Tender, No HSM, No Organomegaly Extremities: No Cyanosis, No Clubbing, No edema Musculoskeletal: No Erythema Skin: No Rashes Lymphatic: No Lymph Node Enlargement Neurological: No Focal Motor or Sensory Deficit Psych/Mental Status: Appropriate 09/20/20 18:00: WBC 12.6 H, RBC 4.33 L, Hgb 13.0, Hct 40.6, MCV 93.8, MCH 30.0, MCHC 32.0, Plt Count 407, MPV 10.5, Immature Gran % (Auto) 0.600, Neut % (Auto) 72.1 H, Lymph % (Auto) 15.3 L, Jerome % (Auto) 10.2 H, Eos % (Auto) 1.0, Baso % (Auto) 0.8, Absolute Neuts (auto) 9.1 H, Nucleated RBC % 0 Rhythm: EKG: Electrocardiogram demonstrated paced rhythm with ST elevation noted in the inferior leads with reciprocal ST depression noted in 1 and aVL consistent with an acute inferior myocardial infarction in a paced rhythm. ECHO: Stress Test: Cardiac Cath: Cardiac catheterization in 2019 demonstrated mild to moderate disease noted in the LAD and a 60% diagonal lesion PCI: CT Surgery: Holter monitor: EPS: PPM: CXR: Chest CT Scan: Assessment/Plan 1. Acute inferior wall myocardial infarction * Patient presents with a syncopal episode and chest discomfort and is noted to have EKG changes suggestive of an acute inferior wall myocardial infarction. * Patient was taken to the cardiac catheterization lab and underwent coronary intervention. * Patient will be continued on post intervention therapy * Patient does have an aspirin allergy and would be on a 2 B3 inhibitor. * Statins will be instituted * Low-dose beta-yung * 2. Cardiomyopathy * Patient previously was noted to have a nonischemic cardiomyopathy. * His blood pressure has been marginal and has not allowed ZENAIDA inhibitor in the past but we will try this again. * Low-dose beta-yung would also be instituted * 3. Amyloid cardiac disease * Patient has a history of cardiac amyloidosis * Will continue on his tafamidis. * 4. Status post biventricular ICD implantation * Patient is status post biventricular ICD implantation. We will continue with current medical therapy and follow-up in the pacemaker clinic. * * Thank you for allowing me to participate in the care of your patient. Please don't hesitate to call if any issues arise.
[2020-09-20 18:54] LABS: Anion Gap 7 (5-15); BUN 26 mg/dL (7-18); BUN/Creat Ratio 12.4 RATIO (10-20); Calcium,Total 9.8 mg/dL (8.5-10.1); Chloride 102 mmol/L (98-107); Creatinine, Serum 2.09 mg/dL (0.70-1.30); EST Glomerular Filtration Rate 33 mL/min (>60); Est Glom Filt Rate - Afr Amer 40 mL/min (>60); Glucose 158 mg/dL (74-106); Potassium 3.7 mmol/L (3.5-5.1); Sodium Level 136 mmol/L (136-145)
--- NOTE | 2020-09-20 19:13 | ECHOD_ITS ---
Reason For Study: S/P GA Procedure This was a 2D Doppler, Color Flow transthoracic echocardiogram. Exam performed in department. Left Ventricle Normal LV size. Severe concentric left ventricular hypertrophy. The estimated ejection fraction is 40 %. Mild to moderate segmental systolic dysfunction (see wall motion). Posterior-Basal: Hypokinetic. Infero-Basal: Severely Hypokinetic. Basal inferoseptal: Hypokinetic. Mid-Inferior: Hypokinetic. Right Ventricle Normal RV size. ICD or pacer leads identified within the right ventricle. Normal systolic function. Atria The left atrium is mildly enlarged. The right atrium is mildly enlarged. Mitral Valve Normal mitral valve. Mild (1+) eccentric mitral valve insufficiency. Tricuspid Valve Normal tricuspid valve. Mild tricuspid valve insufficiency. Aortic Valve Trisinus/trileaflet aortic valve. Pulmonic Valve Normal pulmonic valve. Great Vessels Normal aortic root. The pulmonary artery is normal size. Normal inferior vena cava. Pericardium/Pleural No pericardial effusion. MMode/2D Measurements & Calculations LVIDd: 3.8 cm IVSd: 1.6 cm LVOT diam: 2.2 cm LVIDs: 2.7 cm LVPWd: 2.1 cm LVOT area: 3.9 cm2 RVDd: 3.9 cm FS: 28.0 % Ao root diam: 3.9 cm LAV(MOD-bp): 75.7 ml EDV(MOD-sp4): 97.5 ml LAV(MOD-bp) Indexed: 36.3 ml/m2 ESV(MOD-sp4): 58.1 ml LAV(MOD-sp2): 67.0 ml EF(MOD-sp4): 40.3 % LAV(MOD-sp4): 79.5 ml EDV(MOD-sp2): 113.0 ml SV(MOD-sp4): 39.3 ml SV(MOD-sp2): 43.8 ml EF(MOD-sp2): 38.8 % LA A4 area: 24.5 cm2 LA dimension(2D): 3.6 cm RA A4 area: 22.4 cm2 Doppler Measurements & Calculations MV E max moriah: 64.4 cm/sec Ao V2 max: 122.0 cm/sec LV V1 max: 94.5 cm/sec Ao max P.0 mmHg LV V1 max P.6 mmHg Ao V2 mean: 82.9 cm/sec LV V1 mean P.8 mmHg Ao mean P.0 mmHg LV V1 mean: 64.0 cm/sec Ao V2 VTI: 18.7 cm LV V1 VTI: 15.1 cm BRIDGET(I,D): 3.1 cm2 BRIDGET(V,D): 3.0 cm2 SV(LVOT): 58.6 ml PA V2 max: 52.2 cm/sec TR max moriah: 148.1 cm/sec TR max P.8 mmHg ECHO/Echo Complete Interpretation Summary Normal LV size. Severe concentric left ventricular hypertrophy. The estimated ejection fraction is 40 %. Mild to moderate segmental systolic dysfunction (see wall motion). Compared to previous study, the left ventricular systolic function has worsened .. Ordering Physician: Christ Ruiz Referring Physician: Billy Infante M.D. Performed By: Olinda Jimenez RDCS
--- NOTE | 2020-09-20 19:23 | ED.RN ---
PATIENT WAS STEMI TRANSFER FROM [facility]. PATIENT WAS PLACED IN COMPUTER FOR REGISTRATION AND ADMITTED TO [facility]. PATIENT WAS DIRECT TO [facility] NEVER SEEN IN THE ER
--- NOTE | 2020-09-20 20:00 | EKG12_ITS ---
Test Reason : AM EKG Blood Pressure : / mmHG Vent. Rate : 074 BPM Atrial Rate : 043 BPM P-R Int : 000 ms QRS Dur : 168 ms QT Int : 512 ms P-R-T Axes : 000 -53 048 degrees QTc Int : 568 ms Electronic ventricular pacemaker No previous ECGs available Confirmed by WARREN STRANGE, JOSE RAMON ([id number]), editorial cartoonist LOVELY RICK ([id number]) on 09/28/2020 11:31:00 AM Referred By: Christ Ruiz Confirmed By:JOSE RAMON KELLEY MD
[2020-09-20] MEDS: 0.9% Normal Saline 1,000 ML 100 ML IV (20:09)
--- NOTE | 2020-09-20 20:09 | CL.I_ITS ---
Patient Name: LUIS FERNANDO MAE Study Date: 09/20/2020 Performing: Diogo Yañez MD Ht: 70 inches 177.8 cm : 1940 Wt: 200.2 lbs 90.71 kg Age: 80 Gender: male BSA: 2.09 PROCEDURE(S) PERFORMED [id number]/COR [id number], BRIGITTE AND/OR PTCA, ARTERY OR GRAFT, SINGLE VESSEL CLINICAL PROFILE AND CO-MORBIDITIES Indications: ACS <= 24 hrs Heart Failure: None Stress/Imaging Stress/Image Study Performed: No CAD Presentations: STEMI. Symptom onset Date/Time: 09/20/20 Time Not Available CONCLUSIONS CAD as described with 100% occlusion of the dRCA. Successful thrombectomy and PTCA of dRCA RECOMMENDATIONS Brilinta for at least 12 months. After 1 year, consider switching to plavix indefinitely as pt. is al lergic to ASA Brilinta for at least 12 months. After 1 year, consider switching to plavix indefinitely as pt. is al lergic to ASA DESCRIPTION OF PROCEDURE The patient arrived to the procedure lab. The risks and benefits of the procedure as well as a full d escription of our services here and lack of surgical backup were fully explained to the patient and/o r their significant other prior to the catheterization. The Timeout was completed, verifying the chadwick ect patient and procedure. The patient's procedural site was prepped and draped in the usual fashion. Local anesthetic was given subcutaneously to right radial region with Lidocaine 2%. Using a modified Seldinger technique, arterial access was obtained via the right radial artery, a 6Fr sheath was inse rted.. Left Coronary Artery selective angiography was performed in multiple views using a 5 Fr. JL3. 5 catheter. Right Coronary Artery selective angiography was then performed in multiple views using a 5 Fr. JR 4 catheter JR 4 Guide catheter was inserted and engaged into the RCA. BMW Guide wire was advanced to the RCA . Priority One inserted Pass # 1 Priority One Removed Priority One inserted Pass # 2 Priority One Rem zeynep Emerge 3.50x12 Balloon catheter was inserted. PTCA balloon inflated at 6 atms for 11 secs. Angio gram performed post balloon dilatation. Runthrough Guide wire was inserted as a sergio wire Priority O ne inserted Pass # 3 Priority One Removed Priority One inserted Pass # 4 Priority One Removed JR 4 Gu david catheter was inserted and engaged into the RCA. Runthrough Guide wire was advanced to the RCA. Em erge 2.50x15 Balloon catheter was inserted. PTCA balloon inflated at 6 atms for 10 secs. PTCA balloon inflated at 6 atms for 10 secs. Angiogram performed post balloon dilatation. The arterial sheath w as pulled and a TR Band was applied for hemostasis w/11ml air CORONARY ANGIOGRAPHY DOMINANCE: Right Dominant LEFT HEART ASSESSMENT Left Ventricular Ejection Fraction: Not assessed due renal insufficiency LEFT MAIN: Mild luminal irregularities LEFT ANTERIOR DESCENDING ARTERY: Mild luminal irregularities DIAGONAL 1: Proximal - 50 % Stenosis CIRCUMFLEX ARTERY: Mild luminal irregularities RIGHT CORONARY ARTERY: DISTAL RCA: 100 % Stenosis INTERVENTION INFORMATION LESION SITE: RCA (Distal) Lesion Complexity: High/C, chronic total occlusion: No, lesion at bifurcation: No, thrombus present: Yes, lesion length: 11` mm, culprit lesion: Yes, Previously treated lesion: No Pre Stenosis: 100 % Pre intervention ORTEGA flow: 0 PROCEDURE: Thrombectomy, Balloon Angioplasty Pt. is allergic to ASA and has h/o angioedema to it. After aspiration and PTCA there was no evidence of underlying plaque at the original lesion site. There was clot further downstream in the RPL branch and thrombectomy and PTCA was done here. The distal end of this branch was still occluded. We felt t hat it will be better to just treat this patient with thrombectomy,PTCA and overnight integrillin and consider re look angiography in 1-2 days rather than proceed with stent placement. Post Stenosis: 0 % Post intervention ORTEGA flow: 3 Lesion Devices: Santana .014 BMW [place] Straight 190cm Medtronic 6 Fr JR4.0 100cm Guide Catheter Terumo Priority One Aspiration Catheter Gerard Sci EMERGE MR 3.50x12 BALLOON Terumo .014 Runthrough Extra Floppy 180cm straight Gerard Sci EMERGE MR 2.50x15 BALLOON COMPLICATIONS No Complications PROCEDURE MEDICATIONS Oxygen: 100 % FiO2 via non-rebreather mask Oxygen: 2 L/min via nasal cannula Oxygen: 4 L/min via nasal cannula Brilinta 180 mg PO @ 09/20/2020 18:40:36 Heparin given IA 09/20/2020 18:27:02 Heparin 4000 unit(s) IV 09/20/2020 18:36:31 Heparin 2000 unit(s) IV 09/20/2020 19:08:32 Verapamil 2.5mg, Ntg 100mcgs, 3000 units of Heparin given IA 09/20/2020 18:27:02 SUMMARY OF HEMODYNAMIC DATA Time AIR REST ECG 18:24:01 AO 107/67 (79) SA 18:30:02 Signed By Diogo Yañez MD On 09/20/2020 20:08:27 Diogo Yañez MD
[2020-09-20 20:32] LABS: Hematocrit 38.6 % (40-54); Hemoglobin 12.5 g/dL (13.0-16.5); Mean Corp Hgb Conc 32.4 g/dL (32-36); Mean Corpuscular Hgb 30.7 pg (27.0-32.0); Mean Corpuscular Volume 94.8 fL (80-94); Mean Platelet Vol. 10.1 fl (6.2-12.0); Platelet Count 365 K/mm3 (150-450); RBC Distribution Width CV 14.1 % (11.6-14.6); Red Blood Count 4.07 M/mm3 (4.6-6.2); White Blood Count 12.8 K/mm3 (4.4-11.0)
--- NOTE | 2020-09-20 20:37 | HP.PCM_ITS ---
<Nicole Salcedo - Last Filed: 09/20/20 20:37> Problem List (1) ST elevation (STEMI) myocardial infarction involving right coronary artery Status: Acute (2) Acute kidney injury superimposed on chronic kidney disease Status: Chronic (3) Cardiac amyloidosis Status: Chronic Comment: TTR-wt RV biopsy 02/02/19 (4) Chronic combined systolic and diastolic CHF (congestive heart failure) Status: Chronic (5) Atherosclerosis of coronary artery of [place] heart without angina pectoris Status: Chronic Qualifiers: Coronary Disease-Associated Artery/Lesion type: [place] artery Qualified Code(s): I25.10 - Atherosclerotic heart disease of [place] coronary artery with out angina pectoris (6) Hyperlipidemia Status: Chronic Qualifiers: Hyperlipidemia type: pure hypercholesterolemia Qualified Code(s): E78.00 - Pure hypercholesterolemia, unspecified; E78.00 - Pure hypercholesterolemia, unspecified; E78.00 - Pure hypercholesterolemia, unspecified; E78.0 - Pure hypercholesterolemia (7) Biventricular ICD (implantable cardioverter-defibrillator) in place Status: Chronic History of Present Illness Date of Admission: 09/20/20 Chief Complaint: Chest pain, syncope The patient is a 80 year old M here today from [facility] following a syncopal episode at home. Patient states he was outside blowing the yard when he became suddenly lightheaded, dizzy, and weak. Patient said he began to stumble and fell onto the driveway where he was found by his neighbor. Patient does not think that he ever lost consciousness but is unsure. Patient was originally seen at [facility] however he follows with Dr. Ruiz outpatient for cardiology and was transferred to [place] for a heart catheterization. Original EKG at [facility] showed STEMI and was the basis for patient transfer. Patient has a medical history of hypertension, hyperlipidemia, cardiac amyloidosis, sclerosis of coronary artery of [place] heart without angina pectoris, and chronic combined systolic and diastolic CHF. Patient biventricular ICD in place. Patient is currently in bed resting comfortably, no distress noted. Patient denies fever, chills, chest pain. Patient reports shortness of breath which has been ongoing and mild nausea. Currently on Integrilin drip per cardiology. 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 of [place] heart without angina pectoris (Chronic) Cardiac amyloidosis (Chronic) TTR-wt RV biopsy 02/02/19 Nonischemic cardiomyopathy (Chronic) Biventricular ICD (implantable cardioverter-defibrillator) in place (Chronic 05/04/19) Atrioventricular node dysfunction (Chronic) Paroxysmal atrial fibrillation (Chronic) Atrial tachycardia, paroxysmal (Chronic) Chronic combined systolic and diastolic CHF (congestive heart failure) (Chronic) Diastolic dysfunction, left ventricle (Chronic) Hyperlipidemia (Chronic) Medical History: Medical History (Last Reviewed 09/20/20 @ 20:47 by Nicole Salcedo NURSE COORDINATOR-C) Multiple premature ventricular complexes (Chronic) I49.49 Atherosclerosis of coronary artery of [place] heart without angina pectoris (Chronic) I25.10 Cardiac amyloidosis (Chronic) E85.4, I43 TTR-wt RV biopsy 02/02/19 Nonischemic cardiomyopathy (Chronic) I42.8 Atrioventricular node dysfunction (Chronic) I45.89 Paroxysmal atrial fibrillation (Chronic) I48.0 Atrial tachycardia, paroxysmal (Chronic) I47.1 Chronic combined systolic and diastolic CHF (congestive heart failure) (Chronic) I50.42 Diastolic dysfunction, left ventricle (Chronic) I51.9 Hyperlipidemia (Chronic) E78.5 Arthritis M19.90 Chronic systolic (congestive) heart failure I50.22 Dysfunction of left eustachian tube H69.82 History of basal cell cancer Z85.828 Obesity E66.9 Vertigo R42 COVID-19 virus detected Onset Date: 06/20/20 U07.1 Allergies aspirin Adverse Reaction (Verified 09/18/20 12:40) Swelling ciprofloxacin Adverse Reaction (Verified 09/18/20 12:40) swelling metoprolol Adverse Reaction (Verified 09/18/20 12:40) weakness and collapse Penicillins Adverse Reaction (Verified 09/18/20 12:40) Swelling Sulfa (Sulfonamide Antibiotics) Adverse Reaction (Verified 09/18/20 12:40) swelling Home Medications: Ambulatory Orders Medication Instructions Recorded tafamidis meglumine 20 mg capsule 80 mg PO DAILY 02/04/19 tadalafil 10 mg tablet 10 mg PO DAILY PRN #30 tab 01/26/20 cholecalciferol (vitamin D3) 25 25 mcg PO DAILY 10/26/20 mcg (1,000 unit) capsule amiodarone 200 mg tablet 200 mg PO DAILY #90 tablet 09/18/20 furosemide 40 mg tablet 40 mg PO DAILY #90 tablet 09/18/20 potassium chloride 20 mEq 20 meq PO DAILY #90 tablet 09/18/20 tablet,extended release Surgical History: Surgical History (Last Reviewed 09/20/20 @ 20:47 by Nicole Salcedo NP-C) Biventricular ICD (implantable cardioverter-defibrillator) in place (Chronic) Onset Date: 05/04/19 Z95.810 H/O elbow surgery Z98.890 H/O knee surgery Z98.890 H/O nasal septoplasty Z98.890 H/O repair of right rotator cuff Z98.890 History of cardioversion Onset Date: 05/07/17 Z98.890 10/05/16 History of left heart catheterization Onset Date: 12/04/18 Z98.890 FFR in the LAD and Diagonal were consistent with stenoses that should be treated medically at this time. History of total left knee replacement Onset Date: 03/2017 Z96.652 Hx of tonsillectomy Z98.890, Z90.89 Left AC Seperation Repair Presence of tooth-root and mandibular implants Z96.5 S/P cryoablation of arrhythmia Onset Date: 10/21/16 Z98.890, Z86.[address] Attila Omer @ [facility] Psychiatric History: No pertinent psych hx Lives: Alone Smoking Status: Never smoker Alcohol: None Drugs: None - *Family History Maternal Family History: Family History (Last Reviewed 09/20/20 @ 20:49 by Nicole Salcedo NP-Penny) Father Cancer Sister Hypertension Mother Diabetes Hypertension History Items: Diabetes Review of Systems Constitutional: Reports: Fatigue. Denies: Chills, Fever, Weight Change HEENT: Denies: Head Aches, Sinus Congestion, Sinus Drainage Cardiovascular: Denies: Chest Pain, Palpitations Respiratory: Reports: Shortness of Breath. Denies: Cough, Shortness of breath at rest, Sputum production Gastrointestinal: Reports: Nausea. Denies: Abdominal Pain, Vomiting Genitourinary: Denies: Dysuria Musculoskeletal: Denies: Joint Pain, Joint Tenderness Skin: Reports: Wounds - Patient has multiple abraded areas to nose and right arm from fall. Denies: Rash Neurological: Denies: Numbness, Tingling, Focal weakness Psychiatric: Denies: Anxiety, Depression, Homicidal Ideations, Suicidal Ideations Hematologic/ Lymphatic: Denies: Easy Bruising, Easy Bleeding VTE Information - Inpt Only VTE Present on Admission: No VTE Mechan Device Prophylaxis: None VTE Pharm Prophylaxis ordered?: No Reason prophylaxis not ordered:: Medical Contraindication - Patient currently receiving Integrilin drip Patient Problems: Active and Suspected Problems (Last Reviewed 09/20/20 @ 20:47 by Nicole Salcedo NP-C) ST elevation (STEMI) myocardial infarction involving right coronary artery (Acute) - Physical Exam Vitals/I&O's: Vital Signs Pulse 69 09/20/20 19:57 Body Mass Index (BMI) 29.8 General: Alert, Oriented x3, Cooperative HEENT: Atraumatic, PERRLA, EOMI, Normocephalic Neck: Supple, No JVD, Negative Carotid Bruits Lungs: Clear to auscultation, Normal air movement, No rhonchi, No wheeze, No rales Cardiovascular: Regular rate, Regular Rhythm, Normal S1, Normal S2 Abdomen: Bowel Sounds Present, Soft, Non Tender Extremities: No edema, Capillary Refill Less than 3 Seconds, Peripheral Pulses Normal Skin: No rashes, No breakdown, Incision - Right wrist cath site puncture, dressing dry and intact, - - Abrasions resulting from fall, nose and right arm Musculoskeletal: No Tenderness to Palpation of Joints or Extremities Neurological: Cranial nerves II-XII grossly intact Psych/Mental Status: Normal Affect, Appropriate Laboratory Results 09/20/20 18:00: WBC 12.6 H, RBC 4.33 L, Hgb 13.0, Hct 40.6, MCV 93.8, MCH 30.0, MCHC 32.0, RDW Std Deviation 46.6 H, RDW Coeff of Karyna 13.5, Plt Count 407, MPV 10.5, Immature Gran % (Auto) 0.600, Neut % (Auto) 72.1 H, Lymph % (Auto) 15.3 L, Mcminn % (Auto) 10.2 H, Eos % (Auto) 1.0, Baso % (Auto) 0.8, Absolute Neuts (auto) 9.1 H, Absolute Lymphs (auto) 1.92, Nucleated RBC % 0 09/20/20 18:00: Sodium 136, Potassium 3.7, Chloride 102, Carbon Dioxide 27.0, Anion Gap 7, BUN 26 H, Creatinine 2.09 H, Est GFR (MDRD) Af Amer 40 L, Est GFR (MDRD) Non-Af 33 L, BUN/Creatinine Ratio 12.4, Glucose 158 H, Calcium 9.8, Troponin I 0.126 H 09/20/20 18:00: PT 15.5 H, INR 1.3, APTT 28.4 09/20/20 20:15: WBC 12.8 H, RBC 4.07 L, Hgb 12.5 L, Hct 38.6 L, MCV 94.8 H, MCH 30.7, MCHC 32.4, RDW Std Deviation 48.0 H, RDW Coeff of Karyna 14.1, Plt Count 365, MPV 10.1 Current Medications Amiodarone HCl (Amiodarone 200 Mg Tablet) 200 mg PO DAILY ISSA Atropine Sulfate (Atropine Sulfate 1 Mg/10 Ml Syringe) 0.5 mg IV UD PRN PRN Reason: HR <50 bpm Cholecalciferol (Cholecalciferol (Vit D3) 25 Mcg Tablet (1,000 Units)) 25 mcg PO DAILY ISSA Furosemide (Furosemide 40 Mg Tablet) 40 mg PO DAILY ISSA Heparin Sodium (Beef Lung) (Heparin Lock 500 Unit/5 Ml In 10 Ml Syringe) 500 unit IV UD PRN PRN Reason: HEPARIN FLUSH Eptifibatide (Integrilin) 75 mg in 100 mls @ 0 mls/hr CONT INF .Q0M ISSA Stop: 09/21/20 08:00 Sodium Chloride () 1,000 mls @ 100 mls/hr IV .Q10H [facility] Non-Formulary Medication (Tafamidis Meglumine [Vyndaqel]) 80 mg PO DAILY ISSA Potassium Chloride (Potassium Chloride Oral Tablet 20 Meq) 20 meq PO DAILYCM [facility] Sodium Chloride (0.9% Normal Saline 500 Ml Iv.Soln.) 500 ml IV BOLUS PRN PRN Reason: VASO-VAGAL PROTOCOL Ticagrelor (Ticagrelor 90 Mg Tablet) 90 mg PO BID [facility] Assessment/Plan All Active Problems (Last Reviewed 09/20/20 @ 20:47 by Nicole Salcedo, ANDREW-C) ST elevation (STEMI) myocardial infarction involving right coronary artery (Acute) 1. ST elevation myocardial infarction involving right coronary artery -Patient [facility] and received angioplasty and thrombectomy of the RCA. Per Dr. Yañez cardiology will complete follow up angiography in 1 to 2 days. -Admit to ICU -EKG shows ventricular paced rhythm, heart rate 67. -Integrilin infusion to continue overnight per cardiology -Will obtain echo in a.m. -EKG every morning and as needed 2. Kidney injury superimposed on chronic kidney disease -Kidney disease stage III, GFR 45-59 -GFR currently 33, BUN 26 creatinine 2.09. -Normal saline 100 ml/hour ordered. -Will recheck CMP in the morning 3. Cardiac amyloidosis -Continue tafamidis. 4. Hyperlipidemia -Will initiate statin therapy 5. Chronic combined systolic and diastolic CHF -Continue home regimen 6. Biventricular ICD in place -EKG shows ventricular paced rhythm DVT prophylaxis-not indicated, patient on Integrilin drip. This patient was seen by PRASANNA Denton under the supervision of Dr. Miranda. <Marcin Miranda - Last Filed: 09/20/20 21:59> History of Present Illness The patient is a 80 year old M [] Past Medical History Medical History: Medical History (Last Reviewed 09/20/20 @ 20:47 by PRASANNA Denton) Multiple premature ventricular complexes (Chronic) I49.49 Atherosclerosis of coronary artery of [place] heart without angina pectoris (Chronic) I25.10 Cardiac amyloidosis (Chronic) E85.4, I43 TTR-wt RV biopsy 02/02/19 Nonischemic cardiomyopathy (Chronic) I42.8 Atrioventricular node dysfunction (Chronic) I45.89 Paroxysmal atrial fibrillation (Chronic) I48.0 Atrial tachycardia, paroxysmal (Chronic) I47.1 Chronic combined systolic and diastolic CHF (congestive heart failure) (Chronic) I50.42 Diastolic dysfunction, left ventricle (Chronic) I51.9 Hyperlipidemia (Chronic) E78.5 Arthritis M19.90 Chronic systolic (congestive) heart failure I50.22 Dysfunction of left eustachian tube H69.82 History of basal cell cancer Z85.828 Obesity E66.9 Vertigo R42 COVID-19 virus detected Onset Date: 06/20/20 U07.1 Allergies aspirin Adverse Reaction (Verified 09/18/20 12:40) Swelling ciprofloxacin Adverse Reaction (Verified 09/18/20 12:40) swelling metoprolol Adverse Reaction (Verified 09/18/20 12:40) weakness and collapse Penicillins Adverse Reaction (Verified 09/18/20 12:40) Swelling Sulfa (Sulfonamide Antibiotics) Adverse Reaction (Verified 09/18/20 12:40) swelling Surgical History: Surgical History (Last Reviewed 09/20/20 @ 20:47 by Nicole Salcedo NP-C) Biventricular ICD (implantable cardioverter-defibrillator) in place (Chronic) Onset Date: 05/04/19 Z95.810 H/O elbow surgery Z98.890 H/O knee surgery Z98.890 H/O nasal septoplasty Z98.890 H/O repair of right rotator cuff Z98.890 History of cardioversion Onset Date: 05/07/17 Z98.890 10/05/16 History of left heart catheterization Onset Date: 12/04/18 Z98.890 FFR in the LAD and Diagonal were consistent with stenoses that should be treated medically at this time. History of total left knee replacement Onset Date: 03/2017 Z96.652 Hx of tonsillectomy Z98.890, Z90.89 Left AC Seperation Repair Presence of tooth-root and mandibular implants Z96.5 S/P cryoablation of arrhythmia Onset Date: 10/21/16 Z98.890, Z86.[address] Attila Omer @ [facility] - *Family History Maternal Family History: Family History (Last Reviewed 09/20/20 @ 20:49 by Nicole Salcedo NP-C) Father Cancer Sister Hypertension Mother Diabetes Hypertension - Physical Exam Vitals/I&O's: Vital Signs Pulse 69 09/20/20 19:57 Weight: 199 lb 11.821 oz Body Mass Index (BMI) 28.6 Intake and Output for Last 24 Hours 09/18/20 09/19/20 09/20/20 23:59 23:59 23:59 Output Total 0 / 0 Balance 0 / 0 Laboratory Results 09/20/20 18:00: WBC 12.6 H, RBC 4.33 L, Hgb 13.0, Hct 40.6, MCV 93.8, MCH 30.0, MCHC 32.0, RDW Std Deviation 46.6 H, RDW Coeff of Karyna 13.5, Plt Count 407, MPV 10.5, Immature Gran % (Auto) 0.600, Neut % (Auto) 72.1 H, Lymph % (Auto) 15.3 L, Mcminn % (Auto) 10.2 H, Eos % (Auto) 1.0, Baso % (Auto) 0.8, Absolute Neuts (auto) 9.1 H, Absolute Lymphs (auto) 1.92, Nucleated RBC % 0 09/20/20 18:00: Sodium 136, Potassium 3.7, Chloride 102, Carbon Dioxide 27.0, Anion Gap 7, BUN 26 H, Creatinine 2.09 H, Est GFR (MDRD) Af Amer 40 L, Est GFR (MDRD) Non-Af 33 L, BUN/Creatinine Ratio 12.4, Glucose 158 H, Calcium 9.8, Troponin I 0.126 H 09/20/20 18:00: PT 15.5 H, INR 1.3, APTT 28.4 09/20/20 20:15: WBC 12.8 H, RBC 4.07 L, Hgb 12.5 L, Hct 38.6 L, MCV 94.8 H, MCH 30.7, MCHC 32.4, RDW Std Deviation 48.0 H, RDW Coeff of Karyna 14.1, Plt Count 365, MPV 10.1 Current Medications Amiodarone HCl (Amiodarone 200 Mg Tablet) 200 mg PO DAILY [facility] Atorvastatin Calcium (Atorvastatin Calcium 40 Mg Tablet) 40 mg PO QHS ISSA Atropine Sulfate (Atropine Sulfate 1 Mg/10 Ml Syringe) 0.5 mg IV UD PRN PRN Reason: HR <50 bpm Cholecalciferol (Cholecalciferol (Vit D3) 25 Mcg Tablet (1,000 Units)) 25 mcg PO DAILY ISSA Furosemide (Furosemide 40 Mg Tablet) 40 mg PO DAILY [facility] Heparin Sodium (Beef Lung) (Heparin Lock 500 Unit/5 Ml In 10 Ml Syringe) 500 unit IV UD PRN PRN Reason: HEPARIN FLUSH Eptifibatide (Integrilin) 75 mg in 100 mls @ 7.248 mls/hr CONT INF .[id number] ISSA Stop: 09/21/20 08:00 Sodium Chloride () 1,000 mls @ 100 mls/hr IV .Q10H [facility] Non-Formulary Medication (Tafamidis Meglumine [Vyndaqel]) 80 mg PO DAILY [facility] Ondansetron HCl (Ondansetron 4 Mg/2 Ml Vial) 4 mg IV Q6H PRN PRN PRN Reason: NAUSEA/VOMITING Potassium Chloride (Potassium Chloride Oral Tablet 20 Meq) 20 meq PO DAILYCM [facility] Sodium Chloride (0.9% Normal Saline 500 Ml Iv.Soln.) 500 ml IV BOLUS PRN PRN Reason: VASO-VAGAL PROTOCOL Ticagrelor (Ticagrelor 90 Mg Tablet) 90 mg PO BID [facility] Assessment/Plan Hospitalist note: I am seeing this patient in conjunction with Nicole Salcedo. I independently seen and examined the patient. History and physical, laboratory data and imaging studies reviewed and I concur with above admission and treatment plan. Patient was directly admitted from outside facility for acute non-STEMI, underwent emergent cardiac catheterization, found to have occlusion of the RCA status post angioplasty and thrombectomy. Patient mentioned that he was outside blowing his yard today, felt dizzy and lightheaded and he fell. He denied loss of consciousness. Later, he developed some chest discomfort and he went to [facility] ER. He was found to have acute STEMI and he was transferred to [facility] for cardiac catheterization. He underwent cardiac catheterization, found to have total occlusion of distal RCA status post angioplasty and thrombectomy. Currently, he is on IV Integrilin drip as well as Brilinta. He does have abrasion on his nose which is bleeding currently. He is chest pain-free. His vital signs are stable. - Physical Exam General: Alert, Oriented x3, Cooperative, No apparent distress. HEENT: traumatic, nasal bridge abrasion/bleeding, PERRLA, EOMI. Neck: Supple, No JVD, Negative Carotid Bruits, Trachea Midline, Thyroid Normal. Lungs: Clear to auscultation, Normal air movement, No rhonchi, No wheeze, No rales. Cardiovascular: Regular rate, Regular Rhythm, Normal S1, Normal S2, PMI Normal. Abdomen: Bowel Sounds Present, Soft, Non Tender, Non-Distended, No Hepato-splenomegaly. Extremities: No clubbing, No cyanosis, No edema Skin: No rashes, No breakdown Neurological: Cranial nerves are intact, neuro grossly intact Vital Signs are stable. Assessment and plan: #1 acute STEMI: Status post emergent cardiac catheterization, found to have an percent occlusion of the RCA, status post angioplasty and thrombectomy. EKG reviewed. He is on statin, IV and heparin drip and Brilinta. His vital signs are stable, no chest pain. Cardiology on the case. 2D echocardiogram ordered. Repeat CBC and CMP tomorrow ordered as well. #2 acute kidney injury on top of stage IIIa chronic kidney disease: Baseline creatinine has been around 1.4 mg/dL, admission creatinine is 2.09. Currently, is not reflux, plan to monitor, repeat CMP tomorrow morning, discontinue Lasix. #3 other chronic medical problems: Stable, continue current medications as above. This note was generated with [email or web address] dictation software. It may contain incorrect words, spelling, and punctuation that were not noted in checking the note before signing. Inpatient E&M: 78082 Init Hosp L3
[2020-09-21] VITALS (21 sets, daily range): BP systolic 84–125; BP diastolic 64–92; PULSE 68–78; RESP 12–20; TEMP 36.3–36.8; O2SAT 92–98
[2020-09-21 04:17] LABS: Hematocrit 39.7 % (40-54); Hemoglobin 12.5 g/dL (13.0-16.5); Mean Corp Hgb Conc 31.5 g/dL (32-36); Mean Corpuscular Hgb 29.8 pg (27.0-32.0); Mean Corpuscular Volume 94.5 fL (80-94); Mean Platelet Vol. 10.2 fl (6.2-12.0); Platelet Count 386 K/mm3 (150-450); RBC Distribution Width CV 13.9 % (11.6-14.6); RBC Distribution Width SD 48.6 fl (35.1-43.9); White Blood Count 13.5 K/mm3 (4.4-11.0)
[2020-09-21 04:34] LABS: AST(SGOT) 95 U/L (15-37); Alanine Aminotransfer ALT/SGPT 37 U/L (16-61); Albumin, Serum 3.8 g/dL (3.2-5.0); Alkaline Phosphatase 144 U/L (45-117); Anion Gap 7 (5-15); BUN 29 mg/dL (7-18); BUN/Creat Ratio 15.7 RATIO (10-20); Calcium,Total 9.4 mg/dL (8.5-10.1); Chloride 102 mmol/L (98-107); Creatinine, Serum 1.85 mg/dL (0.70-1.30); EST Glomerular Filtration Rate 38 mL/min (>60); Est Glom Filt Rate - Afr Amer 46 mL/min (>60); Estimated Creatinine Clearance 33.43 ml/min; Globulin 3.8 g/dL (2.2-4.2); Glucose 147 mg/dL (74-106); Potassium 4.4 mmol/L (3.5-5.1); Protein, Total 7.6 g/dL (6.4-8.2); Sodium Level 136 mmol/L (136-145)
[2020-09-21] MEDS: 0.9% Normal Saline 1,000 ML 100 ML IV (06:39)
--- NOTE | 2020-09-21 07:46 | PCM.PN.HOSP ---
Patient Problems: Active and Suspected Problems (Last Reviewed 09/20/20 @ 20:47 by Nicole Salcedo NP-C) ST elevation (STEMI) myocardial infarction involving right coronary artery (Acute) Reason for Visit: Follow-up for inferior wall STEMI status post primary PCI Objective: Patient heart rate in 70s. Blood pressure low 84/66, 91/66. Blood pressure improved to 113. Saturating 96% on room air. Patient has left subclavicular biventricular WOOD GLUER. Physical exam General: Alert, Oriented x3, Cooperative HEENT: Atraumatic, PERRLA, EOMI, Normocephalic Oral: No Gingival or Mucosal Lesions/ Ulcerations Neck: Supple, No JVD, Negative Carotid Bruits Lungs: Air entry diminished in bilateral lung bases. No crepitation/rhonchi Cardiovascular: Paced rhythm, regular rate, Regular Rhythm, Normal S1, Normal S2, No murmurs Abdomen: Bowel Sounds Present, Soft, Non Tender, Non-Distended : No renal angle tenderness. No suprapubic tenderness. Extremities: Right radial artery access site no hematoma. Chronic bilateral 2+ ankle, pitting edema, Capillary Refill Less than 3 Seconds Skin: Bruise over right elbow and bilateral knees and nose/face from fall. Musculoskeletal: No Tenderness to Palpation of Joints or Extremities Neurological: Cranial nerves II-XII grossly intact, Deep Tendon Reflexes 2+/4 and Symmetrical, Neuro grossly intact Psych/Mental Status: Normal Affect, Appropriate. Vitals/I&O's: Vital Signs Temp Pulse Resp BP Pulse Ox 98.1 F 74 19 H 91/66 96 09/21/20 04:01 09/21/20 06:51 09/21/20 06:00 09/21/20 06:00 09/21/20 06:00 Oxygen Flow Rate (L/min) 2 Oxygen Delivery Method Room Air Weight: 200 lb 9.93 oz Body Mass Index (BMI) 28.6 Intake and Output for Last 24 Hours 09/19/20 09/20/20 09/21/20 23:59 23:59 23:59 Intake Total 1427.44 / 1427.44 Output Total 0 / 150 350 / 350 Balance 0 / 10 1077.44 / 1077.44 Laboratory Results 09/20/20 18:00: WBC 12.6 H, RBC 4.33 L, Hgb 13.0, Hct 40.6, MCV 93.8, MCH 30.0, MCHC 32.0, RDW Std Deviation 46.6 H, RDW Coeff of Karyna 13.5, Plt Count 407, MPV 10.5, Immature Gran % (Auto) 0.600, Neut % (Auto) 72.1 H, Lymph % (Auto) 15.3 L, [place] % (Auto) 10.2 H, Eos % (Auto) 1.0, Baso % (Auto) 0.8, Absolute Neuts (auto) 9.1 H, Absolute Lymphs (auto) 1.92, Nucleated RBC % 0 09/20/20 18:00: Sodium 136, Potassium 3.7, Chloride 102, Carbon Dioxide 27.0, Anion Gap 7, BUN 26 H, Creatinine 2.09 H, Est GFR (MDRD) Af Amer 40 L, Est GFR (MDRD) Non-Af 33 L, BUN/Creatinine Ratio 12.4, Glucose 158 H, Calcium 9.8, Troponin I 0.126 H 09/20/20 18:00: PT 15.5 H, INR 1.3, APTT 28.4 09/20/20 20:15: WBC 12.8 H, RBC 4.07 L, Hgb 12.5 L, Hct 38.6 L, MCV 94.8 H, MCH 30.7, MCHC 32.4, RDW Std Deviation 48.0 H, RDW Coeff of Karyna 14.1, Plt Count 365, MPV 10.1 09/21/20 04:10: WBC 13.5 H, RBC 4.20 L, Hgb 12.5 L, Hct 39.7 L, MCV 94.5 H, MCH 29.8, MCHC 31.5 L, RDW Std Deviation 48.6 H, RDW Coeff of Karyna 13.9, Plt Count 386, MPV 10.2 09/21/20 04:10: Sodium 136, Potassium 4.4, Chloride 102, Carbon Dioxide 27.0, Anion Gap 7, BUN 29 H, Creatinine 1.85 H, Estim Creat Clear Calc 33.43, Est GFR (MDRD) Af Amer 46 L, Est GFR (MDRD) Non-Af 38 L, BUN/Creatinine Ratio 15.7, Glucose 147 H, Calcium 9.4, Total Bilirubin 0.90, AST 95 H, ALT 37, Alkaline Phosphatase 144 H, Total Protein 7.6, Albumin 3.8, Globulin 3.8, Albumin/Globulin Ratio 1.0 Current Medications Acetaminophen (Acetaminophen 325 Mg Tablet) 650 mg PO Q6H PRN PRN PRN Reason: Pain 1-10 or Fever Amiodarone HCl (Amiodarone 200 Mg Tablet) 200 mg PO DAILY [facility] Atorvastatin Calcium (Atorvastatin Calcium 40 Mg Tablet) 40 mg PO QHS [facility] Last Admin: 09/20/20 23:10 Dose: Not Given Documented by: Atropine Sulfate (Atropine Sulfate 1 Mg/10 Ml Syringe) 0.5 mg IV UD PRN PRN Reason: HR <50 bpm Cholecalciferol (Cholecalciferol (Vit D3) 25 Mcg Tablet (1,000 Units)) 25 mcg PO DAILY [facility] Heparin Sodium (Beef Lung) (Heparin Lock 500 Unit/5 Ml In 10 Ml Syringe) 500 unit IV UD PRN PRN Reason: HEPARIN FLUSH Eptifibatide (Integrilin) 75 mg in 100 mls @ 7.248 mls/hr CONT INF .[id number] [facility] Stop: 09/21/20 08:00 Last Admin: 09/21/20 03:59 Dose: 1 mcg/kg/min, 7.2 mls/hr Documented by: Sodium Chloride () 1,000 mls @ 100 mls/hr IV .Q10H [facility] Last Admin: 09/21/20 06:39 Dose: 100 mls/hr, 100 mls/hr Documented by: Non-Formulary Medication (Tafamidis Meglumine [Vyndaqel]) 80 mg PO DAILY [facility] Ondansetron HCl (Ondansetron 4 Mg/2 Ml Vial) 4 mg IV Q6H PRN PRN PRN Reason: NAUSEA/VOMITING Potassium Chloride (Potassium Chloride Oral Tablet 20 Meq) [facility] Sodium Chloride (0.9% Normal Saline 500 Ml Iv.Soln.) 500 ml IV BOLUS PRN PRN Reason: VASO-VAGAL PROTOCOL Ticagrelor (Ticagrelor 90 Mg Tablet) 90 mg PO BID [facility] Last Admin: 09/20/20 23:01 Dose: Not Given Documented by: STROKE Vital Signs/Narrative: Vital Signs Temp Pulse Resp BP Pulse Ox 09/21/20 06:51 74 09/21/20 06:00 70 19 H 91/66 96 09/21/20 05:00 69 16 84/66 L 92 09/21/20 04:01 98.1 F 09/21/20 04:00 73 12 91/70 96 Medical Necessity - Tobacco Use Smoking Status: Never smoker Assessment/Plan All Active Problems (Last Reviewed 09/20/20 @ 20:47 by Nicole Salcedo, RN PATIENT SERVICES-C) ST elevation (STEMI) myocardial infarction involving right coronary artery (Acute) This 80-year-old gentleman with history of complicated cardiac history was directly admitted from [facility] after syncopal event although loss of consciousness is not clear. Initial EKG had suspicion of inferior wall STEMI with subtle ST elevation in inferior leads. STEMI was activated and patient transferred to [facility]. 1. Acute STEMI: Status post emergent cardiac catheterization, found to have 100 percent occlusion of the RCA, status post angioplasty and thrombectomy. EKG reviewed. He has aspirin allergy. He is on statin, atorvastatin, amiodarone, Brilinta. His vital signs are stable, no chest pain. Radiation Technician on the case. 2D echo was done and WOOD GLUER was interrogated. Repeat CBC and CMP tomorrow ordered as well. 2 acute kidney injury on top of stage IIIa chronic kidney disease: Baseline creatinine has been around 1.4 mg/dL, admission creatinine is 2.09. Currently, is not reflux, plan to monitor, repeat CMP tomorrow morning, discontinue Lasix. 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 4. Other cardiac conditions include paroxysmal A. fib/atrial tachycardia, AV node dysfunction, multiple PVCs and chronic systolic diastolic heart failure/HFpEF: Recent echo showed EF 53% with stage III diastolic dysfunction however previous echo in [facility] showed EF 30% to 35%. Patient had WOOD GLUER device in April 2019. 5. Other comorbidities include dyslipidemia: VTE prophylaxis: The patient was on Integrilin and heparin IV drip. Hold for pharmacological prophylaxis for 24 hours after heart cath. Patient may need second look heart cath depending on the creatinine clearance. Inpatient E&M: [id number] [place] [id number]
--- NOTE | 2020-09-21 08:11 | CRPHASE1 ---
Patient Communication Former Patient:: Phase I - 12/04/2018, Phase II - Previously referred to [facility] II; patient declined at that time. PHII Cardiac Rehab Discussed with Patient:: Yes Guide to Cardiac Rehab Given to Patient:: Yes Cardiac Rehab Facility Choice List Given to Patient:: Yes Choice Program [facility] CR PHII:: Communication Given to CR, Refer to [facility] Dog Warden:: Nate Yañez Refer Phase II Cardiac Rehab:: Yes Sessions:: 36 sessions - 3 days/wk, 12 weeks Cardiac Rehabilitation Info Cardiac Rehabilitation Program Information: Cardiac Rehabilitation is important for patients like you who are recovering from a heart problem. Cardiac rehabilitation programs are recognized as integral to the continued care of the patient with coronary heart disease. The cardiac rehabilitation program is designed to optimize a patient's physical, psychological, and social functioning. Health out of school hours care worker work in cardiac rehabilitation programs and assist you with getting the treatments you need to get stronger and healthier - like exercise, healthy eating habits, and medications. Cardiac rehabilitation has been show to help people with heart problems live longer and have better life enjoyment than people who do not go to cardiac rehabilitation. Please contact the Cardiac Rehabilitation Program at [facility] at in two weeks if you have not heard from them.
--- NOTE | 2020-09-21 08:13 | CRPH1.INSTRU ---
General Education CAD and cardiac anatomy and function:: Patient communicates acknowledgment Explanation of diagnoses and procedures:: Patient communicates acknowledgment Sign/Symptoms of DE:: Patient communicates acknowledgment Antiplatelet therapy: Patient communicates acknowledgment Proper use of NTG-SL: Patient communicates acknowledgment Emergency procedures and activation of EMS: Patient communicates acknowledgment Compliance of all prescribed medications: Patient communicates acknowledgment Dyslipidemia Patient Dyslipidemia Risk Factors Are:: Total Cholesterol - 214, Triglycerides - 111, HDL - 43, LDL - 149 Recommendations Include:: Lipid profile provided, Reviewed NCEP/ATP guidelines, Therapeutic Lifestyle Change dietary guidelines Dyslipidemia Response Code:: Patient communicates acknowledgment Overweight/Obesity Patient Overweight/Obesity Risk Factors Are:: Overweight = 26-29 Recommendations Include:: Weight loss of 5-10%, Reduced calorie diet, Exercise 5-7 times/week Overweight/Obesity:: Patient communicates acknowledgment Heart Disease Patient Heart Disease Risk Factors Are:: Family history of heart disease < 65 years old, Previous cardiac event Recommendations Include:: Educated family members of their risk, Educated family members of importance of prevention of heart disease Heart Disease Response Code:: Patient communicates acknowledgment
--- NOTE | 2020-09-21 08:16 | PN.CARD_ITS ---
Subjectve: Patient seen and evaluated. Appears to be doing better this morning. Objective: Vital Signs Temp Pulse Resp BP Pulse Ox 98.1 F 78 18 88/74 L 96 09/21/20 04:01 09/21/20 07:00 09/21/20 07:00 09/21/20 07:00 09/21/20 07:00 Oxygen Flow Rate (L/min) 2 Oxygen Delivery Method Room Air Weight: 200 lb 9.93 oz Body Mass Index (BMI) 28.6 Intake and Output for Last 24 Hours 09/19/20 09/20/20 09/21/20 23:59 23:59 23:59 Intake Total 1457.56 / 1457.56 Output Total 0 / 150 350 / 350 Balance 0 10 1107.56 / 1107.56 General: Awake, Alert, Oriented x 3 HEENT: PERRL, EOMI, Sclera Non Icteric Neck: Supple, Good ROM, No Lymph Node Enlargement Lungs: Clear to auscultation Cardiovascular: Regular Rhythm, Normal S1, Normal S2, No Murmurs, No Rubs, No Gallops 09/20/20 18:00: WBC 12.6 H, RBC 4.33 L, Hgb 13.0, Hct 40.6, MCV 93.8, MCH 30.0, MCHC 32.0, Plt Count 407, MPV 10.5, Immature Gran % (Auto) 0.600, Neut % (Auto) 72.1 H, Lymph % (Auto) 15.3 L, [place] % (Auto) 10.2 H, Eos % (Auto) 1.0, Baso % (Auto) 0.8, Absolute Neuts (auto) 9.1 H, Nucleated RBC % 0 09/20/20 18:00: Sodium 136, Potassium 3.7, Chloride 102, Carbon Dioxide 27.0, Anion Gap 7, BUN 26 H, Creatinine 2.09 H, Est GFR (MDRD) Af Amer 40 L, Est GFR (MDRD) Non-Af 33 L, BUN/Creatinine Ratio 12.4, Glucose 158 H, Calcium 9.8, Troponin I 0.126 H 09/20/20 18:00: PT 15.5 H, INR 1.3, APTT 28.4 09/20/20 20:15: WBC 12.8 H, RBC 4.07 L, Hgb 12.5 L, Hct 38.6 L, MCV 94.8 H, MCH 30.7, MCHC 32.4, Plt Count 365, MPV 10.1 09/21/20 04:10: WBC 13.5 H, RBC 4.20 L, Hgb 12.5 L, Hct 39.7 L, MCV 94.5 H, MCH 29.8, MCHC 31.5 L, Plt Count 386, MPV 10.2 09/21/20 04:10: Sodium 136, Potassium 4.4, Chloride 102, Carbon Dioxide 27.0, Anion Gap 7, BUN 29 H, Creatinine 1.85 H, Est GFR (MDRD) Af Amer 46 L, Est GFR (MDRD) Non-Af 38 L, BUN/Creatinine Ratio 15.7, Glucose 147 H, Calcium 9.4, Total Bilirubin 0.90 Rhythm: EKG: ECHO: Stress Test: Cardiac Cath: PCI: CT Surgery: Holter monitor: EPS: PPM: CXR: Chest CT Scan: Medical Necessity - Tobacco Use Smoking Status: Never smoker Assessment/Plan 1. Acute inferior wall myocardial infarction * Patient presents with a syncopal episode and chest discomfort and is noted to have EKG changes suggestive of an acute inferior wall myocardial infarction. * Patient was taken to the cardiac catheterization lab and underwent coronary intervention involving the right coronary artery. This morning appears to be doing better. Due to the creatinine still being elevated we will recommend holding off on a relook heart cath at this time.. * Patient will be continued on post intervention therapy * Patient does have an aspirin allergy and would be on a 2 B3 inhibitor. * Statins will be instituted * Low-dose beta-yung * 2. Cardiomyopathy * Patient previously was noted to have a nonischemic cardiomyopathy. * His blood pressure has been marginal and has not allowed ZENAIDA inhibitor in the past but we will try this again. * Low-dose beta-yung would also be instituted * Echocardiogram performed today demonstrates wall motion abnormalities, estimated EF is approximately 40% with inferoposterior hypokinesis. Final report pending. 3. Amyloid cardiac disease * Patient has a history of cardiac amyloidosis * Will continue on his tafamidis. * 4. Status post biventricular ICD implantation * Patient is status post biventricular ICD implantation. We will continue with current medical therapy and follow-up in the pacemaker clinic. * Will suggest defibrillator interrogation today due to wide-complex arrhythmias noted through the night. * * If patient remains stable will transfer to the progressive care unit later today. * Thank you for allowing me to participate in the care of your patient. Please don't hesitate to call if any issues arise.
--- NOTE | 2020-09-21 09:50 | CASEMGMT ---
RN CM Face to Face with patient for initial transition planning/care coordination assessment. RN CM introduced self and role at [facility]. Patient lying in bed, alert and oriented. Patient willing to participate in assessment and is able to answer all questions appropriately. Care providers, pharmacy, and demographics verified. Patient wishes to discharge home, denies need for home health at this time. Patient states he has no further needs or concerns at this time. CM to follow for discharge planning needs that may arise. PCP: Kev Infante Specialists: Joseph Diaz Pharmacy: [facility] Insurance: [employer] [facility] Prescription Benefit: yes, Brilinta savings card given to patient Living Will/HPOA: yes, Rosalie Ennis LNOK: Living Arrangements: Patient lives with in a 2 story home with bed and bath on the first floor. No steps to enter the home. Patient states he is independent at home. Transportation: Self, DME/HHC: Patient states he has raised toilet, cane, walker, and grab bars at home. Patient denies previous HHC or SNF Disposition Plan: Patient to discharge home with family support and follow-up plans in place. Radha GERARD, RN, CM
[2020-09-21 09:52] LABS: Magnesium 2.4 mg/dL (1.6-2.6)
--- NOTE | 2020-09-21 10:00 | EKG12_ITS ---
Test Reason : STEMI Blood Pressure : / mmHG Vent. Rate : 066 BPM Atrial Rate : 070 BPM P-R Int : 000 ms QRS Dur : 152 ms QT Int : 540 ms P-R-T Axes : 000 131 -66 degrees QTc Int : 566 ms Electronic ventricular pacemaker No previous ECGs available Confirmed by WARREN STRANGE, JOSE RAMON ([id number]), film or videotape editor LOVELY RICK ([id number]) on 09/28/2020 11:31:21 AM Referred By: Christ Ruiz Confirmed By:JOSE RAMON KELLEY MD
[2020-09-21] MEDS: Amiodarone 200 MG Tablet PO ×2 (10:01→21:05)
[2020-09-21] MEDS: Enoxaparin 40 MG/0.4 ML Syringe SC (10:01)
[2020-09-21] MEDS: TICAGRELOR 90 MG TABLET PO ×2 (10:01→21:05)
[2020-09-21] MEDS: Potassium Chloride Oral Tablet 20 MEQ PO (10:02)
[2020-09-21] MEDS: 0.9% Normal Saline 1,000 ML 60 ML IV ×2 (11:09→20:20)
[2020-09-21] MEDS: TAFAMIDIS 61 MG CAPSULE PO (16:46)
--- NOTE | 2020-09-21 16:51 | CHAPLAIN ---
Type of Pastoral Visit _x__ Initial Visit ___ Follow-up Visit ___ On-call Visit ___ General Patient Visit ___ Spiritual Assessment ___ Family Conference ___ Bereavement ___ Rapid Response ___ Code Blue ___ Other (describe below) Pastoral Care Referral From _x__ Patient ___ Family ___ Nurse ___ Physician ___ Bi Consultant ___ Gum Worker ___ Other (describe below) Sacrament/Intervention _x__ Active listening ___ Anointing ___ Sabianist ___ Bereavement ___ Communion _x__ Lala exploration ___ _x__ Life review _x__ Prayer ___ Reconciliation ___ Sacrament of Sick _x__ Supportive presence ___ Wedding ___ Other (describe below) Pastoral Comments
[2020-09-21] MEDS: Pantoprazole Sodium 40 MG Tablet PO (20:20)
[2020-09-22] VITALS (15 sets, daily range): BP systolic 89–123; BP diastolic 52–82; PULSE 61–74; RESP 16–18; TEMP 36.3–37.1; O2SAT 92–100
[2020-09-22 06:21] LABS: Hematocrit 40.9 % (40-54); Hemoglobin 12.7 g/dL (13.0-16.5); Mean Corp Hgb Conc 31.1 g/dL (32-36); Mean Corpuscular Hgb 29.5 pg (27.0-32.0); Mean Corpuscular Volume 95.1 fL (80-94); Mean Platelet Vol. 10.9 fl (6.2-12.0); Platelet Count 385 K/mm3 (150-450); RBC Distribution Width CV 14.1 % (11.6-14.6); RBC Distribution Width SD 49.2 fl (35.1-43.9); White Blood Count 14.1 K/mm3 (4.4-11.0)
[2020-09-22] MEDS: TICAGRELOR 90 MG TABLET PO (06:37)
[2020-09-22] MEDS: Amiodarone 200 MG Tablet PO (06:38)
--- NOTE | 2020-09-22 06:45 | NURSING ---
Brillinta and amiodarone given early due to planned heart stent placement today
[2020-09-22 06:58] LABS: Anion Gap 8 (5-15); BUN 28 mg/dL (7-18); BUN/Creat Ratio 17.6 RATIO (10-20); Calcium,Total 9.1 mg/dL (8.5-10.1); Chloride 105 mmol/L (98-107); Creatinine, Serum 1.59 mg/dL (0.70-1.30); EST Glomerular Filtration Rate 45 mL/min (>60); Est Glom Filt Rate - Afr Amer 54 mL/min (>60); Glucose 97 mg/dL (74-106); Potassium 4.6 mmol/L (3.5-5.1); Sodium Level 135 mmol/L (136-145)
--- NOTE | 2020-09-22 09:02 | CASEMGMT ---
According to [employer] website, the following are in-network tertiary facilities: [facility], [facility], [facility], and . Sylwia MELENDEZ CM
--- NOTE | 2020-09-22 09:30 | NURSING ---
Report called to hoisting laborer nurse Bernadette for pt transfer for heart cath.
--- NOTE | 2020-09-22 10:00 | EKG12_ITS ---
Test Reason : AM EKG Blood Pressure : / mmHG Vent. Rate : 064 BPM Atrial Rate : 064 BPM P-R Int : 000 ms QRS Dur : 152 ms QT Int : 506 ms P-R-T Axes : 000 252 046 degrees QTc Int : 522 ms Ventricular-paced rhythm Abnormal ECG When compared with ECG of 21-SEP-2020 05:01, MANUAL COMPARISON REQUIRED, DATA IS UNCONFIRMED Confirmed by TAMERA STRANGE, CHRIST ([id number]), loan expeditor LOVELY RICK ([id number]) on 09/27/2020 1:11:11 PM Referred By: Christ Ruiz Confirmed By:CHRIST RUIZ MD
--- NOTE | 2020-09-22 11:28 | PCM.DC ---
- Discharge Diagnoses Current Active Problems: Current Active and Chronic Problems (Last Updated 09/21/20 @ 16:16 by Daina Castro) ST elevation (STEMI) myocardial infarction involving right coronary artery (Acute) Acute kidney injury superimposed on chronic kidney disease (Chronic) Atherosclerosis of coronary artery of [place] heart without angina pectoris (Chronic) Cardiac amyloidosis (Chronic) TTR-wt RV biopsy 02/02/19 Biventricular ICD (implantable cardioverter-defibrillator) in place (Chronic 05/04/19) Chronic combined systolic and diastolic CHF (congestive heart failure) (Chronic) Hyperlipidemia (Chronic) You will use the following diet at home:: Cardiac Your food should be the consistency of: Regular Discharge Activity: May Not Drive Call your doctor if you observe: Fever of 101 or Higher, Coldness, Increased Pain, Numbness or Tingling, Change in Color, Inability to urinate, Inability to have a bowel movement, Using more than one pad per hour, Shortness of breath, Dizziness, Fainting spells, Swelling in the ankles, Chest pain, Prolonged hiccoughing, Increased palpitations (irregular heartbeat), Calf discomfort, Uncontrolled pain Allergies/Adverse Reactions: Allergies aspirin Adverse Reaction (Verified 09/18/20 12:40) Swelling ciprofloxacin Adverse Reaction (Verified 09/18/20 12:40) swelling metoprolol Adverse Reaction (Verified 09/18/20 12:40) weakness and collapse Penicillins Adverse Reaction (Verified 09/18/20 12:40) Swelling Sulfa (Sulfonamide Antibiotics) Adverse Reaction (Verified 09/18/20 12:40) swelling Medications to take at Discharge tafamidis meglumine 20 mg capsule 80 mg PO DAILY 02/04/19 tadalafil 10 mg tablet 10 mg PO DAILY PRN #30 tab 01/26/20 cholecalciferol (vitamin D3) 25 mcg (1,000 unit) capsule 25 mcg PO DAILY 04/10/20 Amiodarone HCl 200 mg PO BID #90 tablet 09/22/20 Amiodarone HCl [Cordarone] 200 mg PO BID #60 tablet 09/22/20 Apixaban [Eliquis] 2.5 mg PO BID #60 tablet 09/22/20 Atorvastatin Calcium [Lipitor] 40 mg PO QHS #30 tablet 09/22/20 Furosemide 40 mg PO DAILY #90 tablet 09/22/20 Potassium Chloride [K-Tab ER] 20 meq PO DAILY #90 tablet 09/22/20 Ticagrelor [Brilinta] 90 mg PO BID #60 tablet 09/22/20 The following prescriptions were given: Ticagrelor [Brilinta] 90 mg PO BID #60 tablet Transmission Status: Received by [facility] Amiodarone HCl [Cordarone] 200 mg PO BID #60 tablet Transmission Status: Received by [facility]/pharmacy #[id number] Apixaban [Eliquis] 2.5 mg PO BID #60 tablet Transmission Status: Received by [facility]/pharmacy #[id number] Atorvastatin Calcium [Lipitor] 40 mg PO QHS #30 tablet Transmission Status: Received by [facility]/pharmacy #[id number] Primary Care Physician: Kev Infante, [Primary Care Provider] - Please follow up with your Primary Care Physician in: in 2 weeks Test Results: Test results from this visit will be discussed in further detail at your follow-up appointment, if applicable. Please Follow Up With: Christ Ruiz MD When: as scheduled
--- NOTE | 2020-09-22 11:32 | PCM.DC.SUM ---
Discharge Date and Diagnosis - Problem List Patient Problems: Active and Suspected Problems (Last Updated 09/21/20 @ 16:16 by Daina Castro) ST elevation (STEMI) myocardial infarction involving right coronary artery (Acute) Date of Admission: 09/20/20 Date of Discharge: 09/22/20 - Primary Discharge Diagnosis Acute Problems: Active Problems (Last Updated 09/21/20 @ 16:16 by Daina Castro) ST elevation (STEMI) myocardial infarction involving right coronary artery (Acute) - Secondary Discharge Diagnosis Chronic Problems: Chronic Problems (Last Updated 09/21/20 @ 16:16 by Daina Castro) Acute kidney injury superimposed on chronic kidney disease (Chronic) 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 of [place] heart without angina pectoris (Chronic) Cardiac amyloidosis (Chronic) TTR-wt RV biopsy 02/02/19 Nonischemic cardiomyopathy (Chronic) 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 Initial EKG had suspicion of inferior wall STEMI with subtle ST elevation in inferior leads. STEMI was activated and patient transferred to [facility]. 1. Acute STEMI with arrhythmia, ventricular fibrillation/atrial flutter: Status post emergent cardiac catheterization, found to have 100 percent occlusion of the RCA, status post angioplasty and thrombectomy. EKG reviewed. He has aspirin allergy. He is on statin, atorvastatin, amiodarone, Brilinta. His vital signs are stable, no chest pain. Pharmacist Aide on the case. 2D echo was done and ZIPPER CUTTER was interrogated. 2D echo reported EF 40% with severe concentric LVH. Mild to moderate segmental systolic dysfunction. ICD interrogation reported evidence of A-V dissociation and monomorphic ventricular tachycardia around 4:30 PM on 09/20 quickly degenerating into V. fib and finally patient receiving a 36 J shock for conversion back to AV sequential pacing. Patient appeared to went into atrial flutter and then sinus rhythm. Amiodarone increased to 200 mg twice daily. Serum magnesium level normal 2.4. Patient had second look cardiac catheter today which showed widely open RCA with no significant stenosis. Advised to continue Brilinta for 1 year and then switch to Plavix. Patient is allergic to aspirin. Patient blood pressure is low therefore consider beta-chris as an outpatient. SONNY/ARB not initiated because of kidney dysfunction. Discharge medications discussed with Dr. Ruiz. 2 acute kidney injury on top of stage IIIa chronic kidney disease: Baseline creatinine has been around 1.4 mg/dL, admission creatinine is 2.09. Creatinine improved to 1.59. Advised to hold Lasix for 2 days and then resume. 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 4. Other cardiac conditions include paroxysmal A. fib/atrial tachycardia, AV node dysfunction, multiple PVCs and chronic systolic diastolic heart failure/HFpEF: Present echo shows worsening of EF. Recent echo showed EF 53% with stage III diastolic dysfunction however previous echo in [facility] showed EF 30% to 35%. Patient had ZIPPER CUTTER device in April 2019. 5. Other comorbidities include dyslipidemia: Atorvastatin. Discharge medication reconciliation done. Discharge follow-up instructions completed. Discharge process discussed with the patient and all questions were answered to patient's satisfaction. Total time spent, exact 35 minutes on discharge meds reconciliation, examination, coordination of care with nurses and ancillary staff, review of imaging and blood test and discussion with the patient on follow-up instructions Clinical Impression(s) from Imaging Studies Echocardiogram 09/20/20 19:13 Interpretation Summary Normal LV size. Severe concentric left ventricular hypertrophy. The estimated ejection fraction is 40 %. Mild to moderate segmental systolic dysfunction (see wall motion). Compared to previous study, the left ventricular systolic function has worsened.. Discharge medication reconciliation done. Discharge follow-up instructions completed. Discharge process discussed with the patient and all questions were answered to patient's satisfaction. Total time spent, exact 35 minutes on discharge meds reconciliation, examination, coordination of care with nurses and ancillary staff, review of imaging and blood test and discussion with the patient on follow-up instructions Patient Problems: Active and Suspected Problems (Last Updated 09/21/20 @ 16:16 by Daina Castro) ST elevation (STEMI) myocardial infarction involving right coronary artery (Acute) Objective: Heart rate is regular. In 60s. Afebrile lunchroom monitor shows paced rhythm. Physical exam General: Alert, Oriented x3, Cooperative HEENT: Atraumatic, PERRLA, EOMI, Normocephalic Oral: No Gingival or Mucosal Lesions/ Ulcerations Neck: Supple, No JVD, Negative Carotid Bruits Lungs: Air entry diminished in bilateral lung bases. No crepitation/rhonchi Cardiovascular: Paced rhythm, regular rate, Regular Rhythm, Normal S1, Normal S2, No murmurs Abdomen: Bowel Sounds Present, Soft, Non Tender, Non-Distended : No renal angle tenderness. No suprapubic tenderness. Extremities: Right radial artery access site no hematoma. Mild bilateral ankle pitting edema, Capillary Refill Less than 3 Seconds Skin: Bruise over right elbow and bilateral knees and nose/face from fall. Musculoskeletal: No Tenderness to Palpation of Joints or Extremities Neurological: Cranial nerves II-XII grossly intact, Deep Tendon Reflexes 2+/4 and Symmetrical, Neuro grossly intact Psych/Mental Status: Normal Affect, Appropriate. - Physical Exam Vitals/I&O's: Vital Signs Temp Pulse Resp BP Pulse Ox 97.5 F L 61 18 92/58 L 98 09/22/20 11:00 09/22/20 11:13 09/22/20 11:13 09/22/20 11:13 09/22/20 11:13 Oxygen Flow Rate (L/min) 2 Oxygen Delivery Method Room Air Weight: 207 lb 10.807 oz Body Mass Index (BMI) 28.6 Intake and Output for Last 24 Hours 09/20/20 09/21/20 09/22/20 23:59 23:59 23:59 Intake Total 3300.23 / 3300.23 855 / 855 Output Total 0 / 150 1250 / 1250 300 / 300 Balance 0 / 10 2050.23 / 2050.23 555 / 555 Laboratory Results 09/22/20 04:20: WBC 14.1 H, RBC 4.30 L, Hgb 12.7 L, Hct 40.9, MCV 95.1 H, MCH 29.5, MCHC 31.1 L, RDW Std Deviation 49.2 H, RDW Coeff of Karyna 14.1, Plt Count 385, MPV 10.9 09/22/20 04:20: Sodium 135 L, Potassium 4.6, Chloride 105, Carbon Dioxide 22.0, Anion Gap 8, BUN 28 H, Creatinine 1.59 H, Estim Creat Clear Calc 38.90, Est GFR (MDRD) Af Amer 54 L, Est GFR (MDRD) Non-Af 45 L, BUN/Creatinine Ratio 17.6, Glucose 97, Calcium 9.1 Current Medications Acetaminophen (Acetaminophen 325 Mg Tablet) 650 mg PO Q6H PRN PRN PRN Reason: Pain 1-10 or Fever Amiodarone HCl (Amiodarone 200 Mg Tablet) 200 mg PO BID [facility] Last Admin: 09/22/20 06:38 Dose: 200 mg Documented by: Atorvastatin Calcium (Atorvastatin Calcium 40 Mg Tablet) 40 mg PO QHS [facility] Last Admin: 09/21/20 20:21 Dose: Not Given Documented by: Atropine Sulfate (Atropine Sulfate 1 Mg/10 Ml Syringe) 0.5 mg IV UD PRN PRN Reason: HR <50 bpm Cholecalciferol (Cholecalciferol (Vit D3) 25 Mcg Tablet (1,000 Units)) 25 mcg PO DAILY [facility] Last Admin: 09/21/20 09:58 Dose: Not Given Documented by: Heparin Sodium (Beef Lung) (Heparin Lock 500 Unit/5 Ml In 10 Ml Syringe) 500 unit IV UD PRN PRN Reason: HEPARIN FLUSH Sodium Chloride () 250 mls @ 15 mls/hr IV .[id number] PRN PRN Reason: Saline Flush Sodium Chloride () 250 mls @ 15 mls/hr IV .[id number] PRN PRN Reason: Additional IVPB Infusion Sodium Chloride () 1,000 mls @ 60 mls/hr IV .[id number] [facility] Last Infusion: 09/22/20 09:45 Dose: 0 mls/hr Documented by: Sodium Chloride () 1,000 mls @ 15 mls/hr IV .Q48H ISSA Sodium Chloride () 1,000 mls @ 125 mls/hr IV .Q8H [facility] Ondansetron HCl (Ondansetron 4 Mg/2 Ml Vial) 4 mg IV Q6H PRN PRN PRN Reason: NAUSEA/VOMITING Pantoprazole Sodium (Pantoprazole Sodium 40 Mg Tablet) 40 mg PO DAILY [facility] Potassium Chloride (Potassium Chloride Oral Tablet 20 Meq) [facility] Admin: 09/21/20 10:02 Dose: 20 meq Documented by: Sodium Chloride (0.9% Normal Saline 500 Ml Iv.Soln.) 500 ml IV BOLUS PRN PRN Reason: VASO-VAGAL PROTOCOL Sodium Chloride (0.9% Saline Lock 10 Ml Syringe) 10 - 40 ml IV UD PRN PRN Reason: SALINE FLUSH Sodium Chloride (0.9% Saline Lock 10 Ml Syringe) 10 - 40 ml IV UD PRN PRN Reason: SALINE FLUSH Ticagrelor (Ticagrelor 90 Mg Tablet) 90 mg PO BID [facility] Last Admin: 09/22/20 06:37 Dose: 90 mg Documented by: Discharge Activity: May Not Drive Call your doctor if you observe: Fever of 101 or Higher, Coldness, Increased Pain, Numbness or Tingling, Change in Color, Inability to urinate, Inability to have a bowel movement, Using more than one pad per hour, Shortness of breath, Dizziness, Fainting spells, Swelling in the ankles, Chest pain, Prolonged hiccoughing, Increased palpitations (irregular heartbeat), Calf discomfort, Uncontrolled pain Home Medications: Medications to take at Discharge tafamidis meglumine 20 mg capsule 80 mg PO DAILY 02/04/19 tadalafil 10 mg tablet 10 mg PO DAILY PRN #30 tab 01/26/20 cholecalciferol (vitamin D3) 25 mcg (1,000 unit) capsule 25 mcg PO DAILY 04/10/20 Amiodarone HCl 200 mg PO BID #90 tablet 09/22/20 Amiodarone HCl [Cordarone] 200 mg PO BID #60 tablet 09/22/20 Apixaban [Eliquis] 2.5 mg PO BID #60 tablet 09/22/20 Atorvastatin Calcium [Lipitor] 40 mg PO QHS #30 tablet 09/22/20 Furosemide 40 mg PO DAILY #90 tablet 09/22/20 Potassium Chloride [K-Tab ER] 20 meq PO DAILY #90 tablet 09/22/20 Ticagrelor [Brilinta] 90 mg PO BID #60 tablet 09/22/20 Following Prescriptions Were Given to Patient: Ticagrelor [Brilinta] 90 mg PO BID #60 tablet Transmission Status: Received by [facility] Amiodarone HCl [Cordarone] 200 mg PO BID #60 tablet Transmission Status: Received by [facility]/pharmacy #[id number] Apixaban [Eliquis] 2.5 mg PO BID #60 tablet Transmission Status: Received by [facility]/pharmacy #[id number] Atorvastatin Calcium [Lipitor] 40 mg PO QHS #30 tablet Transmission Status: Received by [facility]/pharmacy #[id number] Primary Care Physician: Kev Infante DO [Primary Care Provider] - Please follow up with your Primary Care Physician in: in 2 weeks Please Follow Up With: Christ Ruiz MD When: as scheduled Medical Necessity - Tobacco Use Smoking Status: Never smoker Meaningful Use Info Meaningful Use Diagnoses (Choose all that apply): AMI - AMI/Post PCI/Angioplasty Aspirin given w/in 24hrs of arrival?: No Reason no aspirin w/in 24hrs of arrival?: Allergy ASA at discharge?: No Reason ASA not ordered:: Allergy Antiplatelet Therapy at Discharge:: Yes Statins at discharge?: Yes Sonny/ARB at discharge?: No Reason Sonny/ARB not ordered:: Worsening renal function Beta Chris at discharge?: No Reason Beta Chris not ordered:: Hypotension Done w/ Acute GA measure.: Yes Documented LVEF (%): 40 Inpatient E&M: [id number] Disch Hosp
[2020-09-22] MEDS: Potassium Chloride Oral Tablet 20 MEQ PO (11:42)
[2020-09-22] MEDS: Pantoprazole Sodium 40 MG Tablet PO (11:42)
[2020-09-22] MEDS: TAFAMIDIS 61 MG CAPSULE PO (11:43)
[2020-09-22] MEDS: Cholecalciferol (VIT D3) 25 MCG TABLET (1,000 UNITS) PO (11:43)
[2020-09-22] MEDS: 0.9% Normal Saline 1,000 ML 125 ML IV (11:43)
[2020-09-22] MEDS: 0.9% Saline Lock 10 ML Syringe IV (11:46)
--- NOTE | 2020-09-22 12:45 | CL.D_ITS ---
Patient Name: LUIS FERNANDO MAE Study Date: 09/22/2020 Performing: Diogo Yañez MD Ht: 70 inches 178 cm : 1940 Wt: 207.5 lbs 94 kg Age: 80 Gender: male BSA: 2.12 PROCEDURE(S) PERFORMED [id number]/[facility] CLINICAL PROFILE AND INDICATIONS Indications: Relook angiogram to evaluate the RCA post STEMI 2 days back as there was distal cuto ff of the RPL vessel Heart Failure: None CONCLUSIONS RCA is widely patent as described above RECOMMENDATIONS DESCRIPTION OF PROCEDURE The patient arrived to the procedure lab. The risks and benefits of the procedure as well as a full d escription of our services here and current unavailability of surgical backup were fully explained to the patient and/or their significant other prior to the catheterization. The Timeout was completed, verifying the correct patient and procedure. The patient's procedural site was prepped and draped in the usual fashion. Local anesthetic was given subcutaneously to right radial region with Lidocaine 2% . Using a modified Seldinger technique, arterial access was obtained via the right radial artery, a 6 Fr sheath was inserted. Right Coronary Artery selective angiography was then performed in [facility] using a 5 Fr. JR 4 catheter.The arterial sheath was pulled and a TR Band was applied for hemosta sis - 9cc air CORONARY ANGIOGRAPHY RIGHT CORONARY ARTERY: RCA was widely patent with no significant stenoses. The distal part of the RPL has thrombus with improvement compared to final post PCI pictures 2 days back. COMPLICATIONS No Complications PROCEDURE MEDICATIONS Versed 1 mg IV Fentanyl 25 mcg IV Oxygen: 2 L/min via nasal cannula Heparin given IA 09/22/2020 10:28:10 Verapamil 2.5mg, Ntg 100mcgs, 3000 units of Heparin given IA 09/22/2020 10:28:10 SUMMARY OF HEMODYNAMIC DATA Time AIR REST AO 104/63 (79) SA 10:30:38 Signed By Diogo Yañez MD On 09/22/2020 12:45:11 Diogo Yañez MD
[2020-09-22 13:53] LABS: Cholesterol 161 mg/dL (200); High Density Lipoprotein 41 mg/dL; Triglycerides 98 mg/dL; Very Low Density Lipoprotein 20 mg/dL (5-40)
--- NOTE | 2020-09-22 14:45 | CASEMGMT ---
Pt to be sent home on Brilinta at d/c and med e-scribed to [facility]. Call to Dwight in [facility] pharmacy and he states Brilinta month free coupon applied but pt's co-pay will be $47/month after. Pt/ updated on all, voice understanding. Pt/ voice no further questions/concerns/needs. Sylwia MELENDEZ CM
--- NOTE | 2020-09-25 15:11 | CASEMGMT ---
NORA MOISE Discharge F/U Phone Call LACViviana: Keaton Strata: 3 Discharge date: 09/22/20 Call date: 09/25/20 Call time: [id number] Admission dx: Acute STEMI Pt states has been 'doing' since discharge. Pt states 'I feel a lot better.' Pt states no questions regarding discharge instructions/medications and states had picked up meds prior to discharge. Pt states sees Dr Ruiz in two days and states will call and make an appointment with Dr. Infante. Pt states no suggestions for [facility] at this time and states 'Care in the ICU was incredible and the [place] laborer staff was amazing.' Pt voices no further questions/concerns/needs and thanks this RN SUMA for call. SStskinny MELENDEZ CM
== END 2020-09-22 15:58 | disposition home or self-care (01) | DRG 250 ==
LOC: ICU 09-21 08:55 → CLSP 09-21 08:55 → PCU 09-25 08:22
PROVIDERS: Specialist; Admitting Provider Hospitalist; PCP Family Medicine; Referring Provider Internal Medicine Cardiovascular Disease; Visit Provider Internal Medicine
DX: I21.11 ST elevation (STEMI) myocardial infarction involving right coronary artery (principal); I49.01 Ventricular fibrillation; E85.4 Organ-limited amyloidosis; I43 Cardiomyopathy in diseases classified elsewhere; I42.8 Other cardiomyopathies; I50.42 Chronic combined systolic (congestive) and diastolic (congestive) heart failure; N17.9 Acute kidney failure, unspecified; I13.0 Hypertensive heart and chronic kidney disease with heart failure and stage 1 through stage 4 chronic kidney disease, or unspecified chronic kidney disease; I47.1 Supraventricular tachycardia; I48.92 Unspecified atrial flutter; I47.2 Ventricular tachycardia; I45.89 Other specified conduction disorders; R06.00 Dyspnea, unspecified; I25.10 Atherosclerotic heart disease of native coronary artery without angina pectoris; N18.31 Chronic kidney disease, stage 3a; I48.0 Paroxysmal atrial fibrillation; E78.5 Hyperlipidemia, unspecified; M19.90 Unspecified osteoarthritis, unspecified site; E66.9 Obesity, unspecified; Z79.899 Other long term (current) drug therapy; Z95.810 Presence of automatic (implantable) cardiac defibrillator; Z86.16 Personal history of COVID-19; Z68.29 Body mass index [BMI] 29.0-29.9, adult; S00.31XA Abrasion of nose, initial encounter; X58.XXXA Exposure to other specified factors, initial encounter; Y93.9 Activity, unspecified; Y92.9 Unspecified place or not applicable; Y99.9 Unspecified external cause status
CPT/HCPCS: 36415; 80048; 80053; 80061; 83735; 83880; 84484; 85025; 85027; 85610; 85730; 92941; 93005; 93306; 93454; 99152; C1757; J7030; J7040; Q9967; A4216; C1725; C1769; C1887; C1894; C9606; J1327

== ENCOUNTER → 2020-09-27 10:26 | Outpatient (CLI) | payer MEDICARE, SELFPAY ==
[2020-09-27 08:45] VITALS: BMI 29.5
[2020-09-27 11:48] LABS: Anion Gap 5 (5-15); BUN 24 mg/dL (7-18); BUN/Creat Ratio 12.7 RATIO (10-20); Calcium,Total 9.2 mg/dL (8.5-10.1); Chloride 101 mmol/L (98-107); Creatinine, Serum 1.89 mg/dL (0.70-1.30); EST Glomerular Filtration Rate 37 mL/min (>60); Est Glom Filt Rate - Afr Amer 44 mL/min (>60); Glucose 125 mg/dL (74-106); Potassium 3.5 mmol/L (3.5-5.1); Sodium Level 136 mmol/L (136-145)
== END ==
PROVIDERS: PCP Family Medicine; Referring Provider Internal Medicine Cardiovascular Disease; Visit Provider Internal Medicine Cardiovascular Disease
DX: Z98.61 Coronary angioplasty status (principal)
CPT/HCPCS: 36415; 80048

== ENCOUNTER → 2020-10-09 09:42 | Outpatient (CLI) | payer MEDICARE, SELFPAY ==
[2020-09-27 08:45] VITALS: BMI 29.5
[2020-10-09 10:47] LABS: Anion Gap 7 (5-15); BUN 23 mg/dL (7-18); BUN/Creat Ratio 11.9 RATIO (10-20); Calcium,Total 8.9 mg/dL (8.5-10.1); Chloride 102 mmol/L (98-107); Creatinine, Serum 1.93 mg/dL (0.70-1.30); EST Glomerular Filtration Rate 36 mL/min (>60); Est Glom Filt Rate - Afr Amer 43 mL/min (>60); Glucose 184 mg/dL (74-106); Potassium 3.4 mmol/L (3.5-5.1); Sodium Level 139 mmol/L (136-145)
== END ==
PROVIDERS: PCP Family Medicine; Referring Provider Internal Medicine Cardiovascular Disease; Visit Provider Internal Medicine Cardiovascular Disease
DX: I25.10 Atherosclerotic heart disease of native coronary artery without angina pectoris (principal); E85.4 Organ-limited amyloidosis; I43 Cardiomyopathy in diseases classified elsewhere; I42.8 Other cardiomyopathies; I45.89 Other specified conduction disorders; I48.0 Paroxysmal atrial fibrillation; I47.1 Supraventricular tachycardia; I50.42 Chronic combined systolic (congestive) and diastolic (congestive) heart failure; Z95.810 Presence of automatic (implantable) cardiac defibrillator
CPT/HCPCS: 36415; 80048

== ENCOUNTER → 2020-10-10 13:28 | Outpatient (CLI) | payer MEDICARE, SELFPAY ==
[2020-09-27 08:45] VITALS: BMI 29.5
[2020-10-10 13:53] VITALS: BP 129/75; PULSE 64; RESP 16; TEMP 36.7; O2SAT 99; BMI 30.5
[2020-10-10] MEDS: 0.9% NaCl Peripheral Flush Adult/Peds IV (13:58)
[2020-10-10] MEDS: Furosemide 40 MG/4 ML Vial IV (14:00)
== END ==
PROVIDERS: PCP Family Medicine; Referring Provider Nurse Practitioner Family; Visit Provider Nurse Practitioner Family
DX: I50.23 Acute on chronic systolic (congestive) heart failure (principal); E85.4 Organ-limited amyloidosis; I42.8 Other cardiomyopathies
CPT/HCPCS: 96372; A4216; J1940

== ENCOUNTER → 2020-10-11 10:20 | Outpatient (CLI) | payer MEDICARE, SELFPAY ==
[2020-10-10 13:53] VITALS: BMI 30.5
[2020-10-10 16:05] VITALS: BMI 30.9
[2020-10-11] MEDS: Furosemide 40 MG/4 ML Vial IV (10:43)
[2020-10-11] MEDS: 0.9% NaCl Peripheral Flush Adult/Peds IV ×2 (10:55→10:59)
[2020-10-11 10:57] VITALS: BP 120/72; PULSE 60; RESP 16; TEMP 36.5; O2SAT 97; BMI 30.9
[2020-10-11 11:22] LABS: Anion Gap 5 (5-15); BUN 24 mg/dL (7-18); BUN/Creat Ratio 11.5 RATIO (10-20); Calcium,Total 9.1 mg/dL (8.5-10.1); Chloride 102 mmol/L (98-107); Creatinine, Serum 2.08 mg/dL (0.70-1.30); EST Glomerular Filtration Rate 33 mL/min (>60); Est Glom Filt Rate - Afr Amer 40 mL/min (>60); Glucose 171 mg/dL (74-106); Potassium 3.6 mmol/L (3.5-5.1); Sodium Level 138 mmol/L (136-145)
== END ==
PROVIDERS: PCP Family Medicine; Referring Provider Nurse Practitioner Family; Visit Provider Nurse Practitioner Family
DX: I50.23 Acute on chronic systolic (congestive) heart failure (principal); E85.4 Organ-limited amyloidosis; I42.8 Other cardiomyopathies
CPT/HCPCS: 96374; 80048; A4216; J1940

== ENCOUNTER 2020-10-20 09:11 | Day surgery (SDC) | payer MEDICARE, SELFPAY ==
[2020-09-27 08:45] VITALS: BMI 29.5
[2020-10-11 10:57] VITALS: BMI 30.9
[2020-10-16 14:21] LABS: Anion Gap 7 (5-15); BUN 26 mg/dL (7-18); BUN/Creat Ratio 12.1 RATIO (10-20); Chloride 100 mmol/L (98-107); Creatinine, Serum 2.14 mg/dL (0.70-1.30); EST Glomerular Filtration Rate 32 mL/min (>60); Est Glom Filt Rate - Afr Amer 39 mL/min (>60); Glucose 188 mg/dL (74-106); Potassium 3.4 mmol/L (3.5-5.1); Sodium Level 139 mmol/L (136-145)
[2020-10-19 08:34] VITALS: BMI 29.5
--- NOTE | 2020-10-20 07:00 | HP_ITS ---
[facility] History of Present Illness Details: LUIS FERNANDO MAE, is a 80 M who presents to the office today for a follow up visit. He is a gentleman with a history of previous atrial tachyarrhythmia nonobstructive coronary disease who had initially presented with shortness of breath and echocardiogram had been performed with demonstrated globally reduced ejection fraction estimated approximately 35-40%. He had been started on carvedilol Lasix and ZENAIDA inhibitor but he did not tolerate the carvedilol and ZENAIDA inhibitor well with his Lasix he did lose some weight and felt better. You do remember that the etiology of the cardio myopathy was not quite clear so he was sent to [facility] where he had a cardiac MRI performed with a suggestion of amyloidosis. However a second opinion sought at [facility] had some questions about the technique that was performed in [place]. He did have some shortness of breath which was noted to be progressive and we did increase his Lasix to 40 mg a day and repeated his echocardiogram which demonstrated global reduction in left ventricular systolic function estimated at 30% with stage III diastolic dysfunction. 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 He was started on tafamidis as well as optimal medical therapy. He eventually had a WINCH STRIPPER-D device placed in late April 2019. He has been doing well and had a recent echocardiogram which demonstrated an ejection fraction of 53% with stage III diastolic dysfunction and a global longitudinal strain score of -13.9. He has been compliant with his medications and there have been no changes. He did unfortunately contract COVID-19 and did have the monoclonal antibody. He was plagued with a cough but he has since recovered. He had presented with shortness of breath and was seen and was placed on a diuretic. 2 days later he had a syncopal episode and actually presented with an acute inferior myocardial infarction. He was mowing his lawn and then apparently passed out was taken to the emergency room at [place] and EKG was faxed to me which demonstrated an acute inferior myocardial infarction he was brought here acutely and underwent thrombectomy of his right coronary artery. There was no underlying obstructive coronary disease. There was significant thrombus burden noted. His ejection fraction had declined to approximately 40%. He was brought back to the lab 48 hours later for a relook angiogram. His defibrillator was interrogated and he was noted to be in atrial flutter. During the event of the syncopal episode he however had ventricular tachycardia which degenerated into ventricular fibrillation for which he was defibrillated by his implantable defibrillator. It was also determined at that time that he would be left on anticoagulation especially since he had also gone into atrial flutter. He was placed on Brilinta but has developed some shortness of breath. He has had no dizziness or diaphoresis no near syncope or syncope. He has no chest pain. He is somewhat dejected. Intake Vital Signs 09/27/20 Height 5 ft 10 in 09/27/20 Weight: 206 lb 09/27/20 BMI 29.5 09/27/20 BP 105/79 09/27/20 Respiration 18 09/27/20 Pulse 78 09/27/20 Pulse Oximetry (%) 99 Intake Visit Reasons: sob Allergies aspirin Adverse Reaction (Verified 09/18/20 12:40) Swelling ciprofloxacin Adverse Reaction (Verified 09/18/20 12:40) swelling metoprolol Adverse Reaction (Verified 09/18/20 12:40) weakness and collapse Penicillins Adverse Reaction (Verified 09/18/20 12:40) Swelling Sulfa (Sulfonamide Antibiotics) Adverse Reaction (Verified 09/18/20 12:40) swelling Ejection fraction %: 40 to 44 [facility] Medical History Atherosclerosis of coronary artery of [place] heart without angina pectoris (Chronic) ST elevation (STEMI) myocardial infarction involving right coronary artery (Acute) Ventricular fibrillation and flutter (Resolved) Typical atrial flutter (Chronic) 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) Nonischemic cardiomyopathy (Chronic) Atrioventricular node dysfunction (Chronic) Paroxysmal atrial fibrillation (Chronic) Atrial tachycardia, paroxysmal (Chronic) Chronic combined systolic and diastolic CHF (congestive heart failure) (Chronic) Diastolic dysfunction, left ventricle (Chronic) Hyperlipidemia (Chronic) Acute kidney injury superimposed on chronic kidney disease (Chronic) Arthritis (Chronic) Chronic systolic (congestive) heart failure (Chronic) Dysfunction of left eustachian tube (Chronic) History of basal cell cancer (Chronic) Obesity (Chronic) Vertigo (Chronic) COVID-19 virus detected (Resolved 06/20/20) Surgical History H/O percutaneous transluminal coronary angioplasty (Resolved 09/20/20) Biventricular ICD (implantable cardioverter-defibrillator) in place (Chronic 05/04/19) H/O elbow surgery (Chronic) H/O knee surgery (Chronic) H/O nasal septoplasty (Chronic) H/O repair of right rotator cuff (Chronic) History of cardioversion (Resolved 05/07/17) History of left heart catheterization (Resolved 12/04/18) History of total left knee replacement (Resolved 03/2017) Hx of tonsillectomy (Resolved) Left AC Seperation Repair (Resolved) Presence of tooth-root and mandibular implants (Resolved) S/P cryoablation of arrhythmia (Resolved 10/21/16) Family History Father Cancer bone Sister Hypertension Mother Diabetes Hypertension Social History (Updated 09/27/20 @ 10:[address] Christ Ruiz MD) Smoking Status: Never smoker alcohol intake: never caffeine: Yes what type of physical activity do you participate in: walking, bicycling frequency: daily ROS Const Const: Positive for fatigue; negative for weakness, headache(s), frequent falls, difficulty sleeping or excessive sweating Eyes Eyes: Negative for loss of peripheral vision, transient loss of vision, blurry vision, double vision or tunnel vision ENT ENT: Negative for headache(s), dizziness, Nosebleed/epistaxis or balance problems Cardio Chest Pain: No Palpitations: No Edema: Bilateral (BLE edema non pitting), None Muscle aches with walking: None Resp Respiratory: Positive for SOB with activity; negative for SOB at rest, SOB orthopnea\SOB lying down, Cough or paroxysmal nocturnal dyspnea GI GI: Negative nausea, vomiting, heartburn or black,tarry stools : Negative for hematuria Musc Musc: Negative for muscle aches/ myalgia, muscle weakness, joint pain or balance problems Skin Skin: Positive for other (RUE itching); negative non-healing lesions, rash or unusual bruising Neuro Neuro: Negative for dizziness, lightheadedness, near syncope, syncope, orthostatic symptoms, frequent falls, headache(s), weakness, blurry vision, double vision or lack of coordination John Hematologic/Lymphatic: Positive for other (RUE brusing r/t fall); negative for easy bleeding or easy bruising Endo Endo: Positive for fatigue; negative for excessive sweating or increased thirst/drinking Psych Psych: Negative for anxiety or depression Allergy Allergy/Immunology: Negative for hives, Negative for rash Cardiology Exam Const Appearance: cooperative, healthy appearing, no acute distress, well developed and well groomed Nutritional Appearance: average body habitus and well nourished Orientation: alert, awake and oriented x3 Head Head: normal to inspection, normocephalic and atraumatic Ears: hearing grossly normal bilaterally and external ears normal Nose: external nose normal, nares normal, nasal mucous membranes and turbinates normal, septum normal, no nasal discharge Face and Sinus: face symmetric Mouth: oral mucosae normal, tongue normal, oropharynx normal and moist mucous membranes Teeth and gingiva: dentition normal Throat: posterior oropharynx normal, tonsils normal and uvula midline Eyes General: appearance normal, both eyes and all related structures Eyelids: eyelids normal Conjunctivae: conjunctivae normal Pupils: PERRL, normal by confrontation and accommodation normal EOM: EOM intact bilaterally Neck Neck: normal visual inspection, trachea midline and no JVD JVD: +5 Carotids: normal carotid upstroke and bounding pulses Chest Chest inspection: normal inspection of the chest, symmetric chest movement and normal respiratory effort Auscultation: Bilateral: Clear to Auscultation Cardio Palpation: normal PMI Rate: regular rate Rhythm: regular rhythm Heart sounds: S1 normal, S2 normal and normal, physiologic split S2; negative rub, gallop or murmur GI GI: normal to inspection, soft, no hepatosplenomegaly and bowel sounds present Neuro General: alert, awake, oriented x3, gait normal, moves all extremities and no focal sensory deficit Skin Skin: no rashes or lesions noted Extremities Pulses: Normal: Right Femoral Pulse, Left Femoral Pulse, Right Dorsalis Pedis Pulse, Left Dorsalis Pedis Pulse, Right Posterior Tibial Pulse, Left Posterior Tibial Pulse, Right Radial Pulse, Left Radial Pulse Lower Extremity Edema: None: Bilateral Musculoskel Musculoskeletal: No joint tenderness Psych Psychological: normal affect Assessment & Plan 1. H/O percutaneous transluminal coronary angioplasty Z98.61 Successful thrombectomy and PTCA of dRCA 09/20/20 Plan He is status post PCI of the right coronary artery with successful thrombectomy. My recommendation at this time is that we keep him on clopidogrel for 3 months and then discontinue it. Due to the high clot burden he would also remain on Eliquis. Orders Orders: Basic Metabolic Profile (BMP) Today 2. Biventricular ICD (implantable cardioverter-defibrillator) in place Z95.810 Plan He is status post biventricular ICD. He did have an episode of VT and VF was successfully defibrillated. He is not biventricular pacing. I would like us to keep him on anticoagulation for at least 3 weeks and consider DC cardioversion. 3. Ventricular fibrillation and flutter I49.01; I49.02 Plan He is status post ventricular fibrillation and atrial flutter. He is on amiodarone at this time we will continue him on the dose of 200 mg twice a day and after a month reducing to 200 mg a day after we have successfully cardioverted him. 4. Cardiac amyloidosis E85.4; I43 TTR-wt RV biopsy 02/02/19 Plan He does have a history of cardiac amyloid and would remain on tafamidis for now. 5. Nonischemic cardiomyopathy I42.8 Plan He does have a history of nonischemic cardiomyopathy. His ejection fraction had improved to 53% and is now down to 40% after his acute myocardial event. My hope is that we will be able to get him on medications to help improve the above. As you know his blood pressure is borderline at this time. He will continue with the diuretics and the potassium supplementation chemistry profile will be obtained today. 6. Paroxysmal atrial fibrillation I48.0 Plan He does have a history of paroxysmal atrial fibrillation. He is in atrial fibrillation at this time and will remain on anticoagulation I would like to increase his Eliquis to 5 mg twice a day. Which is the standard dose. 7. ST elevation (STEMI) myocardial infarction involving right coronary artery I21.11 Plan He is status post ST elevation myocardial infarction. He continues to do well with regard to the above. I like to see him again in approximately 3 weeks and schedule him for a DC cardioversion. I explained the above to him and his they understand and agree to proceed. Plan Detail Other Medications New: clopidogrel (Plavix) 75 mg PO DAILY 90 tabs 3RF Changed: From: apixaban 2.5 mg PO BID 60 tabs 0RF To: apixaban 5 mg PO BID 60 tabs 3RF Discontinued: amiodarone Discontinued Reason: Order Changed 200 mg PO BID 60 tabs 0RF ticagrelor Discontinued Reason: Order Changed 90 mg PO BID 60 tabs 0RF Follow Up 1 Month (lpn rn hospice) Coding Level of Care Code Off vis,est,level 5 Diagnoses H/O percutaneous transluminal coronary angioplasty Z98.61 Biventricular ICD (implantable cardioverter-defibrillator) in place Z95.810 Ventricular fibrillation and flutter I49.01; I49.02 Cardiac amyloidosis 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.4; I43 Nonischemic cardiomyopathy I42.8 Paroxysmal atrial fibrillation I48.0 ST elevation (STEMI) myocardial infarction involving right coronary artery I21.11 Coding Level of Care Code Off vis,est,level 5 Diagnoses H/O percutaneous transluminal coronary angioplasty Z98.61 Biventricular ICD (implantable cardioverter-defibrillator) in place Z95.810 Ventricular fibrillation and flutter I49.01; I49.02 Cardiac amyloidosis E85.4; I43 Nonischemic cardiomyopathy I42.8 Paroxysmal atrial fibrillation I48.0 ST elevation (STEMI) myocardial infarction involving right coronary artery I21.11 Supplemental Info Supplemental Information Labs LDL Cholesterol 100 mg/dL (0-130) 09/22/20 HDL Cholesterol 41 mg/dL (40-) 09/22/20 Triglycerides 98 mg/dL (-199) 09/22/20 VLDL Cholesterol 20 mg/dL (5-40) 09/22/20 Diagnostics Echocardiogram 09/20/20 Pacemaker Check 09/21/20 Cardiac Catheterization 09/22/20
--- NOTE | 2020-10-20 09:26 | ECHOTEE_ITS ---
Reason For Study: A. fib/flutter Medication DANISH probe 6VT-D (SN [id number]) passed without difficulty. No complications were noted. Cetacaine Topical [place] given X3 orally. Versed 2 mg given slow IVP. Fentanyl 50 mcg given slow IVP. Left Ventricle Normal LV size. Left ventricular systolic function is lower limits of normal. There is mild global hypokinesis of the left ventricle. Right Ventricle Normal RV size. Normal systolic function. Atria Normal atrial septum. Normal left atrium. There is mild sponatenous contrast in the left atrium. No thrombus is detected in the left atrial appendage. Bilobed appendage. Normal right atrium. Mitral Valve Normal mitral valve. Mild (1+) eccentric mitral valve insufficiency. Tricuspid Valve Normal tricuspid valve. Aortic Valve Normal aortic valve. Trisinus/trileaflet aortic valve. Pulmonic Valve Normal pulmonic valve. Vessels Normal aortic root. The pulmonary artery is normal size. Pericardium No pericardial effusion. ECHO/Echo Transesophageal (DANISH) Interpretation Summary Normal LV size. Left ventricular systolic function is lower limits of normal. There is mild sponatenous contrast in the left atrium. No thrombus is detected in the left atrial appendage. Bilobed appendage Ordering Physician: Christ Ruiz Referring Physician: Billy Infante M.D. Performed By: Olinda Jimenez RDCS
--- NOTE | 2020-10-20 13:06 | OP.PCM_ITS ---
Problems Associated Problem List Diagnoses (1) Typical atrial flutter: Operative Report Date of Procedure: 10/20/20 DC cardioversion. Patient has a history of known atrial tachyarrhythmias. The patient had undergone a transesophageal echocardiogram this morning which demonstrated no ev idence of left atrial appendage thrombus. There was mild spontaneous echo contrast noted. The patient was then brought to the noninvasive lab and was seen by Dr. Infante of the critical care division. Informed consent was obtained. Anterior-posterior pads were applied. The patient was confirmed to be in an atrial tachyarrhythmia with checking of the defibrillator by the representatives of the [employer]. The patient was then administered 6 mg of intravenous etomidate and 200 J of biphasic cardioversion energy were applied. The patient returned to a biphasic paced patent. The patient was interrogated by the pacer nurse and was confirmed to be in AV sequential pacing. Patient tolerated the procedure well. Conclusion: Successful DC cardioversion from atrial fibrillation flutter to sinus rhythm. Continue current anticoagulation. Reduce amiodarone to 200 mg once a day. Continue oral Lasix. Follow-up in my office in a week.
--- NOTE | 2020-10-20 13:37 | PCM.OP.PRO ---
Procedure Report Date of Procedure: 10/20/20 CONSCIOUS SEDATION REPORT DATE OF SERVICE: October 20, 2020 BRIEF HISTORY OF PRESENT ILLNESS: The patient is a 80-year-old male who presented to [facility] for an elective outpatient cardioversion due to underlying atrial fibrillation. The patient's last echocardiogram revealed an ejection fraction of approximately 40%. He is currently anticoagulated on Eliquis. The patient denies any prior anesthetic complications. He has never been diagnosed previously with COPD or obstructive sleep apnea. PHYSICAL EXAMINATION: VITAL SIGNS: Reviewed and were acceptable. GENERAL: The patient is a male, in no apparent distress, speaking in full sentences. HEENT: Normocephalic, atraumatic. Mucous membranes are moist and pink. Good mouth opening noted. Trachea is midline. CHEST: S1, S2 irregularly irregular. No murmurs, rubs or gallops were noted. LUNGS: Clear to auscultation bilaterally without appreciable wheezes, rales or rhonchi. ABDOMEN: Soft, nontender, nondistended. Positive bowel sounds. EXTREMITIES: There is no clubbing, cyanosis or edema. ASA Class: II DESCRIPTION OF PROCEDURE: After confirmation of informed consent, the patient's anesthesia plan was reviewed in detail. Etomidate was chosen. Risks and benefits were reviewed and the patient agreed to proceed. At 1234, the patient was given 6 mg of etomidate. The patient achieved an appropriate level of sedation and was given a 200 joule synchronized cardioversion by Dr. Ruiz at the bedside. This was successful in achieving normal sinus rhythm. The patient was monitored until 1244, at which time he reached his baseline mental status and function. The patient tolerated the procedure well. COMPLICATIONS: None ESTIMATED BLOOD LOSS: None RECOMMENDATIONS: Okay to recover in usual fashion. Procedures Pulmonary CF Procedures [id number]: Other Procedure See Report ([id number])
== END 2020-10-20 13:50 | disposition home or self-care (01) ==
PROVIDERS: Nurse Practitioner Family; PCP Family Medicine; Referring Provider Internal Medicine Cardiovascular Disease; Visit Provider Internal Medicine Cardiovascular Disease
DX: I48.3 Typical atrial flutter (principal); I25.10 Atherosclerotic heart disease of native coronary artery without angina pectoris; I50.40 Unspecified combined systolic (congestive) and diastolic (congestive) heart failure; I42.8 Other cardiomyopathies; I25.2 Old myocardial infarction; Z79.02 Long term (current) use of antithrombotics/antiplatelets; Z79.899 Other long term (current) drug therapy; Z79.01 Long term (current) use of anticoagulants
CPT/HCPCS: 36415; 80048; 84132; 92960; 93005; 93312; 93320; 93325; J7040; A4216

== ENCOUNTER 2020-10-22 10:28 | Inpatient (IN) | payer MEDICARE, SELFPAY ==
[2020-10-19 08:34] VITALS: BMI 29.5
[2020-10-22] VITALS (8 sets, daily range): BP systolic 100–137; BP diastolic 65–86; PULSE 65–86; RESP 14–18; TEMP 36.1–36.9; O2SAT 95–97; BMI 31.4; BMI 29.8
--- NOTE | 2020-10-22 10:47 | RAD_ITS ---
STUDY: X-RAY CHEST REASON FOR EXAM: Male, 80 years old. chf TECHNIQUE: Single AP portable view of the chest. COMPARISON: 07/12/2020 FINDINGS: Left subclavian dual-lead AICD which is unchanged. The lungs are clear and expanded. There is no demonstrated pleural abnormality. There is moderate cardiac enlargement. Normal mediastinum and gracia. Normal visualized pulmonary arteries. Normal visualized aortic arch and descending thoracic aorta. Normal visualized thoracic spine. Normal visualized ribs, clavicles, and shoulders. There is no demonstrated abnormality of the visualized soft tissue structures of the upper abdomen. RAD/Chest 1 View (Portable) IMPRESSION: No active disease. Electronically Signed: Spenser Sorto MD at 11:50 EDT Tel , Service support ,
--- NOTE | 2020-10-22 10:47 | EKG12_ITS ---
Test Reason : Blood Pressure : / mmHG Vent. Rate : 080 BPM Atrial Rate : 080 BPM P-R Int : 160 ms QRS Dur : 186 ms QT Int : 504 ms P-R-T Axes : 000 -61 053 degrees QTc Int : 581 ms Atrial-sensed ventricular-paced rhythm Biventricular pacemaker detected Abnormal ECG Confirmed by TAMERA STRANGE, ELISEO ([id number]), editor farm journal LOVELY RICK ([id number]) on 10/23/2020 1:11:52 PM Referred By: AGUSTÍN Confirmed By:ELISEO PHILIP MD
--- NOTE | 2020-10-22 10:48 | EX.ED.DYSGE1 ---
HPI History of Present Illness Chief Complaint: Edema Informant: patient and other (anesthesiologist attending) Onset/Context/Timing Onset: Days (2) Context: Gradual Onset Timing: Continuous Quality: swelling Location: both legs Current Severity: Moderate Maximum Severity: Moderate Worsened by: nothing in particular Relieved by: nothing including his furosemide Associated Symptoms Associated Symptoms: orthopnea and HAIR stable Narrative Narrative: Patient has history of congestive heart failure and atrial fibrillation for which he is anticoagulated on Eliquis. He had a cardioversion 2 days ago and since then his leg edema has been worsening. He talked to his anesthesiologist attending and discussed also the fact that he has had about an 18 pound weight gain in the past month, his Lasix is not making him urinate any more than he was prior to taking the pill, and he was advised to come to the hospital for admission for IV Lasix infusion. 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 CHF (congestive heart failure) Chronic systolic (congestive) heart failure COVID-19 virus detected (06/20/20) Diastolic dysfunction, left ventricle Dysfunction of left eustachian tube History of basal cell cancer Hyperlipidemia Multiple premature ventricular complexes Nonischemic cardiomyopathy Obesity Paroxysmal atrial fibrillation ST elevation (STEMI) myocardial infarction involving right coronary artery Typical atrial flutter Ventricular fibrillation and flutter Vertigo Home Medications tadalafil 10 mg tablet 10 mg PO DAILY PRN #30 tablet 01/26/20 [Rx Last Taken Unknown] cholecalciferol (vitamin D3) 25 mcg (1,000 unit) capsule 25 mcg PO DAILY 04/10/20 [History Last Taken Unknown] apixaban 5 mg tablet 5 mg PO BID #60 tablet 09/27/20 [Rx Last Taken 10/20/20] clopidogrel 75 mg tablet 75 mg PO DAILY #90 tablet 09/27/20 [Rx Last Taken 10/20/20] tafamidis 61 mg capsule 61 mg PO DAILY 10/05/20 [History Last Taken Unknown] furosemide 40 mg tablet 80 mg PO DAILY tablet 10/09/20 [History Last Taken 10/20/20] potassium chloride 10 mEq tablet,extended release 20 meq PO DAILY #180 tablet 10/09/20 [Rx Last Taken 10/20/20] amiodarone 250 mg PO DAILY 10/22/20 [History Last Taken Unknown] Allergy/AdvReac Type Severity Reaction Status Date / Time aspirin AdvReac Swelling Verified 10/22/20 10:29 ciprofloxacin AdvReac swelling Verified 10/22/20 10:29 metoprolol AdvReac weakness Verified 10/22/20 10:29 and collapse Penicillins AdvReac Swelling Verified 10/22/20 10:29 [id number] Reductase AdvReac myalgia Verified 10/22/20 10:29 Inhibitor Sulfa (Sulfonamide AdvReac swelling Verified 10/22/20 10:29 Antibiotics) Family History Father Cancer bone Sister Hypertension Mother Diabetes Hypertension Surgical History Biventricular ICD (implantable cardioverter-defibrillator) in place (05/04/19) H/O elbow surgery H/O knee surgery H/O nasal septoplasty H/O percutaneous transluminal coronary angioplasty (09/20/20) H/O repair of right rotator cuff History of cardioversion (10/20/20) History of left heart catheterization (09/22/20) 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) Hx of tonsillectomy Left AC Seperation Repair Presence of tooth-root and mandibular implants S/P cryoablation of arrhythmia (10/21/16) Social History Smoking Status: Never smoker alcohol intake: never caffeine: Yes what type of physical activity do you participate in: walking and bicycling frequency: daily ROS ROS ED Constitutional Constitutional ED: Denies chills or fever(s) Eyes Eyes: Denies change in vision or diplopia ENT ENT ED: Denies rhinorrhea or sore throat Cardiovascular Cardiovascular: Reports leg edema, orthopnea and weight gain; Denies chest pain or palpitations Respiratory/Chest Respiratory/Chest: Reports orthopnea and shortness of breath with exertion; Denies cough Gastrointestinal Gastrointestinal: Denies abdominal pain, diarrhea, nausea or vomiting Genitourinary Genitourinary ED: Denies dysuria or hematuria Musculoskeletal Musculoskeletal: Denies back pain or neck pain Integumentary Denies abscess or rash Neurologic Neurologic: Denies headache(s), paresthesias or weakness Psychiatric Psychiatric: Denies anxiety or suicidal thoughts EXAM Physical Exam Const Vital Signs: 10/22/20 10:34 10/22/20 11:20 10/22/20 11:48 Temperature 96.9 F L Temperature Source Temporal Pulse Rate 72 79 Respiratory Rate 17 16 Respiratory Effort Normal Respiratory Pattern Normal Blood Pressure 100/66 134/84 H Blood Pressure Mean 77 100 Pulse Ox 97 96 Oxygen Delivery Method Room Air Room Air 10/22/20 12:10 Temperature Temperature Source Pulse Rate 86 Respiratory Rate 17 Respiratory Effort Respiratory Pattern Blood Pressure 137/86 H Blood Pressure Mean 103 Pulse Ox 95 Oxygen Delivery Method Room Air Positive well nourished and well developed General Appearance ED: well developed and NAD HEENT Reports moist mucous membranes normocephalic and atraumatic Eyes PERRL and EOMs intact bilaterally Neck full ROM and supple Resp normal respiratory effort and clear to auscultation bilaterally Cardio regular rate, regular rhythm, S1 normal heart sound, S2 normal heart sound and no murmurs Rate: Negative for tachycardic GI non-tender and non-distended Auscultation: normoactive bowel sounds Palpation: soft Back/Spine no CVA tenderness General Back: other FROM Extremity normal to inspection and no calf tenderness Extremity Narrative: Symmetric 2+ edema both lower extremities, proximal shins General Extremety ED: Yes edema; Negative for pulses abnormal or tenderness General Extremity: edema; Negative for pulses abnormal Neuro oriented x3, CN's II-XII intact bilaterally and no sensory deficits noted Sensorium / Orientation: awake and alert Gait (Neuro): normal gait Motor Exam: strength 5/5 throughout Skin no rashes or lesions noted and no wounds MDM MDM MDM Narrative Medical decision making narrative: Patient was given a dose of IV Lasix. Discussed with his anesthesiologist attending Dr. Ruiz, who requested we admit the patient on a Lasix drip and have the hospitalist call him. His troponin is elevated which has been in the past, which could be related to his chronic renal insufficiency which is relatively stable compared with his old numbers. Patient is stable for PCU. Lab Data Attestation: I reviewed the patient's lab results. Labs: Laboratory Results - last 24 hr 10/22/20 10/22/20 10/22/20 11:30 11:30 11:30 WBC 9.4 RBC 4.21 L Hgb 12.6 L Hct 40.2 MCV 95.5 H MCH 29.9 MCHC 31.3 L RDW Std Deviation 48.6 H RDW Coeff of Karyna 13.9 Plt Count 457 H MPV 10.2 Immature Gran % (Auto) 0.700 Neut % (Auto) 68.9 Lymph % (Auto) 13.8 L [place] % (Auto) 13.2 H Eos % (Auto) 2.7 Baso % (Auto) 0.7 Absolute Neuts (auto) 6.5 Absolute Lymphs (auto) 1.30 Nucleated RBC % 0 Sodium 137 Potassium 3.8 Chloride 101 Carbon Dioxide 34.0 H Anion Gap 2 L BUN 23 H Creatinine 2.03 H Estim Creat Clear Calc 30.47 Est GFR (MDRD) Af Amer 41 L Est GFR (MDRD) Non-Af 34 L BUN/Creatinine Ratio 11.3 Glucose 96 Calcium 9.4 Troponin I 0.131 H B-Natriuretic Peptide 395.9 H Radiography Chest X-Ray - ED: 1 View, Read by ED Physician and No Acute Disease Diagnostic Testing: Radiology Impression Chest X-Ray 10/22/20 10:47 IMPRESSION: No active disease. Electronically Signed: Spenser Sorto MD at 11:50 EDT Tel , Service support , EKG Initial EKG: Attestation: I personally reviewed and interpreted this EKG as follows: Interpretation: Sinus Rhythm and Paced Discharge Plan Dx/Rx/DC Orders Clinical Impression: Acute exacerbation of CHF (congestive heart failure), Elevated troponin, Chronic kidney failure Disposition Disposition: Acute Care [facility]
[2020-10-22] MEDS: Furosemide 100 MG/10 ML Vial 80 MG IV (11:28)
[2020-10-22 11:46] LABS: Absolute Neutrophil Count 6.5 X10^3/uL (2.0-7.7); Basophil# 0.07 X10^3/uL; Basophil% 0.7 % (0-1); Eosinophil# 0.25 X10^3/uL; Eosinophils% 2.7 % (0-5); Hematocrit 40.2 % (40-54); Hemoglobin 12.6 g/dL (13.0-16.5); Lymphocyte % 13.8 % (19-41); Mean Corp Hgb Conc 31.3 g/dL (32-36); Mean Corpuscular Hgb 29.9 pg (27.0-32.0); Mean Corpuscular Volume 95.5 fL (80-94); Mean Platelet Vol. 10.2 fl (6.2-12.0); Monocyte# 1.24 X10^3/uL; Monocyte% 13.2 % (0-10); NRBC Flagged by Analyzer 0 % (0-5); Neutrophil # 6.46 X10^3/uL (2.7-7.7); Neutrophil % 68.9 % (47-70); Platelet Count 457 K/mm3 (150-450); RBC Distribution Width CV 13.9 % (11.6-14.6); RBC Distribution Width SD 48.6 fl (35.1-43.9); Red Blood Count 4.21 M/mm3 (4.6-6.2); White Blood Count 9.4 K/mm3 (4.4-11.0)
[2020-10-22 11:58] LABS: Anion Gap 2 (5-15); BUN 23 mg/dL (7-18); BUN/Creat Ratio 11.3 RATIO (10-20); Calcium,Total 9.4 mg/dL (8.5-10.1); Chloride 101 mmol/L (98-107); Creatinine, Serum 2.03 mg/dL (0.70-1.30); EST Glomerular Filtration Rate 34 mL/min (>60); Est Glom Filt Rate - Afr Amer 41 mL/min (>60); Estimated Creatinine Clearance 30.47 ml/min; Glucose 96 mg/dL (74-106); Potassium 3.8 mmol/L (3.5-5.1); Sodium Level 137 mmol/L (136-145)
[2020-10-22 12:07] LABS: BNP,B-Type NATRIURETIC PEPTIDE 395.9 pg/mL (0-100)
--- NOTE | 2020-10-22 12:13 | HP.PCM.HOS_ITS ---
HPI - General HPI Narrative LUIS FERNANDO MAE, is a 80 M with a PMH as outlined who was admitted with a complaint of lower extremity swelling and shortness of breath. He had cardioversion 2 days ago, and thinks his LE edema has been worsening since. He had also had an 18 pound weight gain over the past month; he has also been unable to urinate much at home. HE was therefore advised to come into the hospital to be managed for acute on chronic combined HF, for a lasix drip. 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 CHF (congestive heart failure) Chronic systolic (congestive) heart failure COVID-19 virus detected (06/20/20) Diastolic dysfunction, left ventricle Dysfunction of left eustachian tube History of basal cell cancer Hyperlipidemia Multiple premature ventricular complexes Nonischemic cardiomyopathy Obesity Paroxysmal atrial fibrillation ST elevation (STEMI) myocardial infarction involving right coronary artery Typical atrial flutter Ventricular fibrillation and flutter Vertigo Home Medications tadalafil 10 mg tablet 10 mg PO DAILY PRN #30 tablet 01/26/20 [Rx Last Taken Unknown] cholecalciferol (vitamin D3) 25 mcg (1,000 unit) capsule 25 mcg PO DAILY 04/10/20 [History Last Taken Unknown] apixaban 5 mg tablet 5 mg PO BID #60 tablet 09/27/20 [Rx Last Taken 10/20/20] clopidogrel 75 mg tablet 75 mg PO DAILY #90 tablet 09/27/20 [Rx Last Taken 10/20/20] tafamidis 61 mg capsule 61 mg PO DAILY 10/05/20 [History Last Taken Unknown] furosemide 40 mg tablet 80 mg PO DAILY tablet 10/09/20 [History Last Taken 10/20/20] potassium chloride 10 mEq tablet,extended release 20 meq PO DAILY #180 tablet 10/09/20 [Rx Last Taken 10/20/20] amiodarone 250 mg PO DAILY 10/22/20 [History Last Taken Unknown] Allergy/AdvReac Type Severity Reaction Status Date / Time aspirin AdvReac Swelling Verified 10/22/20 10:29 ciprofloxacin AdvReac swelling Verified 10/22/20 10:29 metoprolol AdvReac weakness Verified 10/22/20 10:29 and collapse Penicillins AdvReac Swelling Verified 10/22/20 10:29 [id number] Reductase AdvReac myalgia Verified 10/22/20 10:29 Inhibitor Sulfa (Sulfonamide AdvReac swelling Verified 10/22/20 10:29 Antibiotics) Family History Father Cancer bone Sister Hypertension Mother Diabetes Hypertension Surgical History Biventricular ICD (implantable cardioverter-defibrillator) in place (05/04/19) H/O elbow surgery H/O knee surgery H/O nasal septoplasty H/O percutaneous transluminal coronary angioplasty (09/20/20) H/O repair of right rotator cuff History of cardioversion (10/20/20) History of left heart catheterization (09/22/20) 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) Hx of tonsillectomy Left AC Seperation Repair Presence of tooth-root and mandibular implants S/P cryoablation of arrhythmia (10/21/16) Social History Smoking Status: Never smoker alcohol intake: never caffeine: Yes what type of physical activity do you participate in: walking and bicycling frequency: daily ROS Constitutional Constitutional: Denies chills, fatigue, fever(s), malaise or weakness Eyes Eyes: Denies double vision or erythema ENT HEENT: Denies dysphagia, headache(s), nasal congestion or nasal discharge Cardiovascular Cardiovascular: Reports dyspnea on exertion, edema, orthopnea and paroxysmal nocturnal dyspnea; Denies chest pain, palpitations or rapid heart rate Respiratory/Chest Respiratory/Chest: Reports dyspnea, shortness of breath at rest and shortness of breath with exertion; Denies cough, hemoptysis, productive cough or wheezing Gastrointestinal Gastrointestinal: Denies abdominal pain, nausea or vomiting Genitourinary Genitourinary: Denies burning urination, difficulty urinating, urinary frequency or urinary hesitancy Musculoskeletal Musculoskeletal: Denies arthralgias or back pain Psychiatric Psychiatric: Denies anxiety or depression Endocrine Endocrinology: Reports change in body appearance; Denies heat intolerance Hematologic/Lymphatic Hematologic/Lymphatic: Denies anemia Vital Signs Vital Signs Vital Signs: 10/22/20 10:34 10/22/20 11:20 10/22/20 11:48 Temperature 96.9 F L Temperature Source Temporal Pulse Rate 72 79 Respiratory Rate 17 16 Respiratory Effort Normal Respiratory Pattern Normal Blood Pressure 100/66 134/84 H Blood Pressure Mean 77 100 Pulse Ox 97 96 Oxygen Delivery Method Room Air Room Air Physical Exam Const alert and oriented x3 General Appearance: cooperative HEENT normocephalic and head/scalp atraumatic Eyes PERRL, EOMs intact bilaterally and conjunctivae normal Neck no lymphadenopathy Resp Resp Narrative: diminished breath sounds bibasally, no wheezes or crackles. On room air. Cardio regular rate, regular rhythm, S1 normal heart sound, S2 normal heart sound and no murmurs GI normal to inspection, nondistended, normoactive bowel sounds, soft to palpation, non-tender and non-distended Extremity normal to inspection and full ROM Skin no rashes or lesions noted Neuro oriented x3 Sensorium / Orientation: awake and alert Psych affect normal Mood & Affect: depressed Lab / Micro Data Result Diagrams: 10/22/20 11:30 10/22/20 11:30 Labs: Laboratory Results - last 24 hr 10/22/20 10/22/20 10/22/20 11:30 11:30 11:30 WBC 9.4 RBC 4.21 L Hgb 12.6 L Hct 40.2 MCV 95.5 H MCH 29.9 MCHC 31.3 L RDW Std Deviation 48.6 H RDW Coeff of Karyna 13.9 Plt Count 457 H MPV 10.2 Immature Gran % (Auto) 0.700 Neut % (Auto) 68.9 Lymph % (Auto) 13.8 L [place] % (Auto) 13.2 H Eos % (Auto) 2.7 Baso % (Auto) 0.7 Absolute Neuts (auto) 6.5 Absolute Lymphs (auto) 1.30 Nucleated RBC % 0 Sodium 137 Potassium 3.8 Chloride 101 Carbon Dioxide 34.0 H Anion Gap 2 L BUN 23 H Creatinine 2.03 H Estim Creat Clear Calc 30.47 Est GFR (MDRD) Af Amer 41 L Est GFR (MDRD) Non-Af 34 L BUN/Creatinine Ratio 11.3 Glucose 96 Calcium 9.4 Troponin I 0.131 H B-Natriuretic Peptide 395.9 H Radiology Impression Chest X-Ray 10/22/20 10:47 IMPRESSION: No active disease. Electronically Signed: Spenser Sorto MD at 11:50 EDT Tel , Service support , Assessment & Plan Assessment/Plan (1) Acute exacerbation of CHF (congestive heart failure): (2) Elevated troponin: (3) Chronic kidney failure: (4) Biventricular ICD (implantable cardioverter-defibrillator) in place: PLAN: #Acute on chronic HFrEF * admit to PCU * start lasix drip * monitor intake and output. * fluid restriction to 1500cc daily. * BNP is 395.9 * #Afib * rate controlled. Recently had a cardioversion 2 days ago * continue amiodarone and continue eliquis * #CKD stage 3B * CR is 2.03, which is around his baseline; with eGFR o 34. Will trend Cr * DVT prophylaxis: on eliquis Code status: Visit Charges Inpatient E&M: 05042 Init Hosp L3 Procedures Hospitalists Procedures: 00757 Critial Care Addl 30 Min
[2020-10-22] MEDS: Furosemide 500 MG in Empty Viaflex 50 mL 1 EACH CONT INF (16:07)
[2020-10-22] MEDS: 0.9% Saline Lock 10 ML Syringe IV (16:08)
[2020-10-22] MEDS: CLARIFY ORDER NOTE ×2 (16:09→16:11)
--- NOTE | 2020-10-22 16:19 | CON.PCM.CA_ITS ---
Assessment & Plan Assessment/Plan (1) Acute exacerbation of CHF (congestive heart failure): PLAN: He does have an exacerbation of congestive heart failure. The exact etiology of the above is not clear. He was recently cardioverted from atrial fibrillation flutter to sinus rhythm. The plan will be to admit him and diurese him with intravenous Lasix, continue his amiodarone. He did not tolerate beta-yung well in the past as well as ZENAIDA inhibitor due to his renal dysfunction. Salt restriction has been emphasized (2) Atherosclerosis of coronary artery of [place] heart without angina pectoris: QUALIFIERS: Coronary Disease-Associated Artery/Lesion type: [place] artery Qualified Code(s): I25.10 - Atherosclerotic heart disease of [place] coronary artery without angina pectoris PLAN: He does have evidence of obstructive coronary disease and underwent angioplasty of his right coronary artery. He has been maintained on 2 B3 inhibitor as well as anticoagulation and this will be continued for now. He does have minimal troponin elevation but I do not think that this signals any evidence of occlusion. (3) Biventricular ICD (implantable cardioverter-defibrillator) in place: PLAN: He is status post biventricular ICD implantation. His ICD was interrogated 72 hours ago and he was AV sequentially paced. His EKG demonstrates AV sequential paced rhythm. At this time I would not recommend that we make any changes he will continue to follow-up in the office and he has a follow-up scheduled in about a week. (4) Typical atrial flutter: PLAN: He did have evidence of atypical atrial flutter for which he underwent a DC cardioversion recently. He appears to be maintaining sinus rhythm and we will continue with the same. 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 He is being seen in conjunction with the amyloid clinic at [facility]. (6) Nonischemic cardiomyopathy: PLAN: He has a largely nonischemic cardiomyopathy. He has not tolerated beta-blockers or ZENAIDA inhibitors in the past and we will continue him on his current medications. Thank you for allowing me to participate in the care of your patient. Please don't hesitate to call if any issues arise. HPI Consult Data Date of Consult: 10/22/20 HPI Narrative HPI Narrative: LUIS FERNANDO MAE, is a 80 M who presents with short of breath. He has an extensive cardiac history and recently underwent a DANISH guided ca rdioversion for atrial fibrillation with a uncontrolled ventricular response rate as well as shortness of breath. He was successfully converted to sinus rhythm. He called me today saying that he had significant pedal edema and was asked to come to the emergency room. He is a gentleman with a history of previous atrial tachyarrhythmia nonobstructive coronary disease who had initially presented with shortness of breath and echocardiogram had been performed with demonstrated globally reduced ejection fraction estimated approximately 35-40%. He had been started on carvedilol Lasix and ZENAIDA inhibitor but he did not tolerate the carvedilol and ZENAIDA inhibitor well with his Lasix he did lose some weight and felt better. You do remember that the etiology of the cardio myopathy was not quite clear so he was sent to [facility] where he had a cardiac MRI performed with a suggestion of amyloidosis. However a second opinion sought at [facility] had some questions about the technique that was performed in [place]. He did have some shortness of breath which was noted to be progressive and we did increase his Lasix to 40 mg a day and repeated his echocardiogram which demonstrated global reduction in left ventricular systolic function estimated at 30% with stage III diastolic dysfunction. Due to the high index of suspicion for amyloid he was eventually sent to [facility] where he had a repeat cardiac MRI, and cardiac biopsy which confirmed amyloid cardiac disease. He was started on tafamidis as well as optimal medical therapy. He eventually had a TELETYPE TECHNICIAN-D device placed in late April 2019. He has been doing well and had a recent echocardiogram which demonstrated an ejection fraction of 53% with stage III diastolic dysfunction and a global longitudinal strain score of -13.9. He has been compliant with his medications and there have been no changes. He did unfortunately contract COVID-19 and did have the monoclonal antibody. He was plagued with a cough but he has since recovered. He had presented with shortness of breath and was seen and was placed on a diuretic. 2 days later he had a syncopal episode and actually presented with an acute inferior myocardial infarction. He was mowing his lawn and then apparently passed out was taken to the emergency room at [place] and EKG was faxed to me which demonstrated an acute inferior myocardial infarction he was brought here acutely and underwent thrombectomy of his right coronary artery. There was no underlying obstructive coronary disease. There was significant thrombus burden noted. His ejection fraction had declined to approximately 40%. He was brought back to the lab 48 hours later for a relook angiogram. His defibrillator was interrogated and he was noted to be in atrial flutter. During the event of the syncopal episode he however had ventricular tachycardia which degenerated into ventricular fibrillation for which he was defibrillated by his implantable defibrillator. It was also determined at that time that he would be left on anticoagulation especially since he had also gone into atrial flutter. After his last office visit he was brought in for the DANISH guided cardioversion which was successful. He has been admitted to the telemetry care unit and he says that he has gone to the bathroom quite a bit and feels better already. 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 heart failure) Chronic systolic (congestive) heart failure COVID-19 virus detected (06/20/20) Diastolic dysfunction, left ventricle Dysfunction of left eustachian tube History of basal cell cancer Hyperlipidemia Multiple premature ventricular complexes Nonischemic cardiomyopathy Obesity Paroxysmal atrial fibrillation ST elevation (STEMI) myocardial infarction involving right coronary artery Typical atrial flutter Ventricular fibrillation and flutter Vertigo Home Medications tadalafil 10 mg tablet 10 mg PO DAILY PRN #30 tablet 01/26/20 [Rx Last Taken U nknown] apixaban 5 mg tablet 5 mg PO BID #60 tablet 09/27/20 [Rx Last Taken 10/22/20] clopidogrel 75 mg tablet 75 mg PO DAILY #90 tablet 09/27/20 [Rx Last Taken 10/22/20] tafamidis 61 mg capsule 61 mg PO DAILY 10/05/20 [History Last Taken 10/22/20] furosemide 40 mg tablet 80 mg PO DAILY tablet 10/09/20 [History Last Taken 10/22/20] potassium chloride 10 mEq tablet,extended release 20 meq PO DAILY #180 tablet 10/09/20 [Rx Last Taken 10/22/20] amiodarone 200 mg PO DAILY 10/22/20 [History Last Taken 10/22/20] Allergy/AdvReac Type Severity Reaction Status Date / Time aspirin AdvReac Swelling Verified 10/22/20 10:29 ciprofloxacin AdvReac swelling Verified 10/22/20 10:29 metoprolol AdvReac weakness Verified 10/22/20 10:29 and collapse Penicillins AdvReac Swelling Verified 10/22/20 10:29 Katnviq-Psv-Rfh Reductase AdvReac myalgia Verified 10/22/20 10:29 Inhibitor Sulfa (Sulfonamide AdvReac swelling Verified 10/22/20 10:29 Antibiotics) Family History Father Cancer bone Sister Hypertension Mother Diabetes Hypertension Surgical History Biventricular ICD (implantable cardioverter-defibrillator) in place (05/04/19) H/O elbow surgery H/O knee surgery H/O nasal septoplasty H/O percutaneous transluminal coronary angioplasty (09/20/20) H/O repair of right rotator cuff History of cardioversion (10/20/20) History of left heart catheterization (09/22/20) 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) Hx of tonsillectomy Left AC Seperation Repair Presence of tooth-root and mandibular implants S/P cryoablation of arrhythmia (10/21/16) Social History Smoking Status: Never smoker alcohol intake: never caffeine: Yes what type of physical activity do you participate in: walking and bicycling frequency: daily ROS Review of Systems ROS Unobtainable: Denies due to encephalopathy, due to endotracheal tube, due to mental condition, due to mental status or other Constitutional Constitutional: Reports as per HPI Eyes Eyes: Reports as per HPI ENT HEENT: Reports as per HPI Cardiovascular Cardiovascular: Reports dyspnea at rest, dyspnea on exertion, edema, erythema on extremities, fatigue and leg edema Respiratory/Chest Respiratory/Chest: Reports dyspnea and dyspnea on exertion Gastrointestinal Gastrointestinal: Reports as per HPI Genitourinary Genitourinary: Reports as per HPI Musculoskeletal Musculoskeletal: Reports as per HPI Integumentary Integumentary: Reports as per HPI Neurologic Neurologic: Reports as per HPI Psychiatric Psychiatric: Reports as per HPI; Denies anxiety Endocrine Endocrinology: Denies systems reviewed and no addt'l complaints, except as documented, as per HPI, none, change in body appearance, change in libido, cold intolerance, deepening of the voice, excessive sweating, fatigue, flushing, heat intolerance, increase in ring/shoe/hat size, palpitations, polydipsia, polyphagia, polyuria or other Hematologic/Lymphatic Hematologic/Lymphatic: Denies systems reviewed and no addt'l complaints, except as documented, as per HPI, none, anemia, easy bleeding, easy bruising, lymphadenopathy or other Physical Exam Const oriented x3 and healthy appearing Orientation / Consciousness: awake HEENT normocephalic Eyes PERRL and conjunctivae normal Neck supple, no JVD and no carotid bruits Chest inspection of chest normal Resp normal respiratory effort and clear to auscultation bilaterally Cardio Palpation: normal PMI Rate: regular rate Rhythm: regular rhythm Heart Sounds: S1 normal and S2 normal Peripheral Pulses: pulses 2+ throughout GI normal to inspection, nondistended, normoactive bowel sounds Extremity normal to inspection General Extremity: edema Peripheral Pulses: Yes pulses 2+ throughout Psych mental status grossly normal
[2020-10-22] MEDS: APIXABAN 5 MG TABLET PO (21:38)
[2020-10-23] VITALS (7 sets, daily range): BP systolic 107–121; BP diastolic 58–70; PULSE 63–75; RESP 16–18; TEMP 36–37.2; O2SAT 97–98
[2020-10-23 07:05] LABS: Absolute Lymphocyte Count 1.56 X10^3/uL (0.83-4.51); Absolute Neutrophil Count 5.7 X10^3/uL (2.0-7.7); Basophil% 1.1 % (0-1); Eosinophil# 0.39 X10^3/uL; Eosinophils% 4.4 % (0-5); Hematocrit 38.2 % (40-54); Hemoglobin 11.6 g/dL (13.0-16.5); Lymphocyte # 1.56 X10^3/ul (0.83-4.51); Lymphocyte % 17.7 % (19-41); Mean Corp Hgb Conc 30.4 g/dL (32-36); Mean Corpuscular Hgb 28.4 pg (27.0-32.0); Mean Corpuscular Volume 93.4 fL (80-94); Mean Platelet Vol. 10.1 fl (6.2-12.0); Monocyte# 1.04 X10^3/uL; Monocyte% 11.8 % (0-10); NRBC Flagged by Analyzer 0 % (0-5); Neutrophil # 5.68 X10^3/uL (2.7-7.7); Neutrophil % 64.4 % (47-70); Platelet Count 426 K/mm3 (150-450); RBC Distribution Width CV 13.9 % (11.6-14.6); RBC Distribution Width SD 47.1 fl (35.1-43.9); Red Blood Count 4.09 M/mm3 (4.6-6.2); White Blood Count 8.8 K/mm3 (4.4-11.0)
[2020-10-23 07:31] LABS: Anion Gap 8 (5-15); BUN 20 mg/dL (7-18); Calcium,Total 8.8 mg/dL (8.5-10.1); Chloride 100 mmol/L (98-107); Creatinine, Serum 1.82 mg/dL (0.70-1.30); EST Glomerular Filtration Rate 38 mL/min (>60); Est Glom Filt Rate - Afr Amer 46 mL/min (>60); Estimated Creatinine Clearance 33.98 ml/min; Glucose 96 mg/dL (74-106); Potassium 3.4 mmol/L (3.5-5.1); Sodium Level 139 mmol/L (136-145)
[2020-10-23] MEDS: APIXABAN 5 MG TABLET PO (09:34)
[2020-10-23] MEDS: Clopidogrel Bisulfate 75 MG Tablet PO (09:34)
[2020-10-23] MEDS: Amiodarone 200 MG Tablet PO (09:34)
[2020-10-23] MEDS: Potassium Chloride Oral Tablet 20 MEQ PO (09:34)
[2020-10-23] MEDS: Cholecalciferol (VIT D3) 25 MCG TABLET (1,000 UNITS) PO (09:35)
[2020-10-23] MEDS: 0.9% Saline Lock 10 ML Syringe IV (12:43)
--- NOTE | 2020-10-23 13:00 | CASEMGMT ---
[facility] palliative screening completed and pt does not meet palliative criteria at this time. SStskinny RN CM
--- NOTE | 2020-10-23 13:36 | PCM.DC.SUM ---
Providers Date of Admission: 10/22/20 Primary Care Physician: Dr. Kev Infante, Consultations 10/22/20 15:03 Consult: Cardiology Routine Consulting Provider: Christ Ruiz Reason for Consult: acute on chronic heart failure EMERGENT Consult: No MD Notified: Yes Date Notified:: 10/22/20 Time Notified: 15:03 Method of Notification: Text Reason For Visit: ACUTE ON CHRONIC HEART FAILURE Diagnosis Discharge Diagnosis (1) Acute exacerbation of CHF (congestive heart failure): Status: Chronic Code(s): I50.9 - Heart failure, unspecified (2) Atherosclerosis of coronary artery of [place] heart without angina pectoris: Status: Chronic Code(s): I25.10 - Atherosclerotic heart disease of [place] coronary artery without angina pectoris Qualifiers: Coronary Disease-Associated Artery/Lesion type: [place] artery Qualified Code(s): I25.10 - Atherosclerotic heart disease of [place] coronary artery without angina pectoris (3) Biventricular ICD (implantable cardioverter-defibrillator) in place: Status: Chronic Code(s): Z95.810 - Presence of automatic (implantable) cardiac defibrillator (4) Typical atrial flutter: Status: Chronic Code(s): I48.3 - Typical atrial flutter (5) Cardiac amyloidosis: Status: Chronic Code(s): E85.4 - Organ-limited amyloidosis; I43 - Cardiomyopathy in diseases classified elsewhere (6) Nonischemic cardiomyopathy: Status: Chronic Code(s): I42.8 - Other cardiomyopathies Medications at Discharge Home Medications tadalafil 10 mg tablet 10 mg PO DAILY PRN #30 tablet 01/26/20 apixaban 5 mg tablet 5 mg PO BID #60 tablet 09/27/20 clopidogrel 75 mg tablet 75 mg PO DAILY #90 tablet 09/27/20 tafamidis 61 mg capsule 61 mg PO DAILY 10/05/20 furosemide 40 mg tablet 80 mg PO DAILY tablet 10/09/20 potassium chloride 10 mEq tablet,extended release 20 meq PO DAILY #180 tablet 10/09/20 amiodarone 200 mg PO DAILY 10/22/20 ABG / Lab / Microbiology Data Result Diagrams: 10/23/20 06:44 10/23/20 06:44 Laboratory: Laboratory Results - last 24 hr 10/22/20 10/23/20 10/23/20 15:39 06:44 06:44 WBC 8.8 RBC 4.09 L Hgb 11.6 L Hct 38.2 L MCV 93.4 MCH 28.4 MCHC 30.4 L RDW Std Deviation 47.1 H RDW Coeff of Karyna 13.9 Plt Count 426 MPV 10.1 Immature Gran % (Auto) 0.600 Neut % (Auto) 64.4 Lymph % (Auto) 17.7 L Starke % (Auto) 11.8 H Eos % (Auto) 4.4 Baso % (Auto) 1.1 H Absolute Neuts (auto) 5.7 Absolute Lymphs (auto) 1.56 Nucleated RBC % 0 Sodium 139 Potassium 3.4 L Chloride 100 Carbon Dioxide 31.0 Anion Gap 8 BUN 20 H Creatinine 1.82 H Estim Creat Clear Calc 33.98 Est GFR (MDRD) Af Amer 46 L Est GFR (MDRD) Non-Af 38 L BUN/Creatinine Ratio 11.0 Glucose 96 Calcium 8.8 Troponin I 0.114 H D/C Instructions Discharge Diet: 6 Cup Fluid Restriction and 2000 mg Sodium Diet Discharge Activity: Return to Normal Activity Discharge Plan Admission Admit Date/Time: 10/22/20 14:59 Primary Reason for Your Visit: Acute CHF Attending Provider: Radha Metzger Primary Care Provider: Kev Infante Consulting Providers: Christ Ruiz Instructions Patient Instructions: What Is Heart Failure?, Heart Failure: Tracking Your Weight, Heart Failure: Making Changes to Your Diet, Chronic Kidney Disease Additional Instructions / Restrictions: Continue to take all your medications as prescribed. Take note of changes to your medication. Continue on a low-fat low-salt diet. Restrict your total fluid intake to less than 1500 mls. Weigh yourself every day. Let your doctor know when you gain more than pounds of weight. Follow-up with your primary care doctor in 1 to 2 weeks. You would need repeat blood work to check on your kidney function within a week of discharge. Discharge Orders/Prescriptions Prescriptions: Continued apixaban 5 mg tablet 5 mg PO BID Qty: 60 RF: 3 clopidogrel [Plavix] 75 mg tablet 75 mg PO DAILY Qty: 90 RF: 3 potassium chloride 10 mEq tablet extended release 20 meq PO DAILY Qty: 180 RF: 3 furosemide 40 mg tablet 80 mg PO DAILY RF: 0 amiodarone 200 mg tablet 200 mg PO DAILY RF: 0 tadalafil [Cialis] 10 mg tablet 10 mg PO DAILY PRN (Reason: sexual activity) Qty: 30 RF: 0 Vyndamax 61 mg capsule 61 mg PO DAILY RF: 0 Referrals / Follow Up: Christ Ruiz MD [STAFF PHYSICIAN] - Within 2 Weeks Kev Infante DO [Primary Care Provider] - Disposition Disposition (needs filled in before D/C Order can be placed): Home, self care
--- NOTE | 2020-10-23 13:54 | PHA.DC.MR ---
Pharmacy Service has performed discharge medication reconciliation for this patient. The patient's discharge medication list was reviewed for discrepancies and discrepancies were resolved. Home Medications tadalafil 10 mg tablet 10 mg PO DAILY PRN #30 tablet 01/26/20 apixaban 5 mg tablet 5 mg PO BID #60 tablet 09/27/20 clopidogrel 75 mg tablet 75 mg PO DAILY #90 tablet 09/27/20 tafamidis 61 mg capsule 61 mg PO DAILY 10/05/20 furosemide 40 mg tablet 80 mg PO DAILY tablet 10/09/20 potassium chloride 10 mEq tablet,extended release 20 meq PO DAILY #180 tablet 10/09/20 amiodarone 200 mg PO DAILY 10/22/20
--- NOTE | 2020-10-23 15:15 | CASEMGMT ---
NORA MOISE Readmission Note Previous Admission: 09/20/20-09/22/20 Diagnosis: Acute STEMI with arrhythmia, ventricular fibrillation/atrial flutter: Status post emergent cardiac catheterization, found to have 100 percent occlusion of the RCA, status post angioplasty and thrombectomy. DC Disposition: Home Current Admission Diagnosis: acute on chronic heart failure Pt admitted 2 days post cardioversion after worsening of bilat legs. Pt required IV lasix. Pt dc'd next day. NORA MOISE in to pt room. Pt states he feels well and wants to be dc'd. Denies any need for HHC or any other needs. DC PLAN: Home with family support
--- NOTE | 2020-10-24 13:34 | CASEMGMT ---
NORA MOIES Discharge F/U Phone Call LACE: 10 Strata: 3 Discharge date: 10/23/20 Call date: 10/24/20 Call time: 1334 Admission dx: Acute on Chronic HF Pt states has been doing 'good' since discharge. Pt states no questions regarding discharge instructions/medications. Pt states has f/u appt's made and plans to keep. Pt states no suggestions for [facility] and states 'The nurses were very good, they were fun, and good sports.' Pt voices no further questions/concerns/needs. SStaten NORA MOISE
--- NOTE | 2020-10-24 16:08 | PCM.DC.SUM ---
Providers Date of Admission: 10/22/20 Date of Discharge: 10/23/20 Primary Care Physician: Dr. Kev Infante, Consultations 10/22/20 15:03 Consult: Cardiology Routine Consulting Provider: Christ Ruiz Reason for Consult: acute on chronic heart failure EMERGENT Consult: No MD Notified: Yes Date Notified:: 10/22/20 Time Notified: 15:03 Method of Notification: Text Reason For Visit: ACUTE ON CHRONIC HEART FAILURE Diagnosis Discharge Diagnosis (1) Acute exacerbation of CHF (congestive heart failure): Status: Chronic Code(s): I50.9 - Heart failure, unspecified (2) Atherosclerosis of coronary artery of [place] heart without angina pectoris: Status: Chronic Code(s): I25.10 - Atherosclerotic heart disease of [place] coronary artery without angina pectoris Qualifiers: Coronary Disease-Associated Artery/Lesion type: [place] artery Qualified Code(s): I25.10 - Atherosclerotic heart disease of [place] coronary artery without angina pectoris (3) Biventricular ICD (implantable cardioverter-defibrillator) in place: Status: Chronic Code(s): Z95.810 - Presence of automatic (implantable) cardiac defibrillator (4) Typical atrial flutter: Status: Chronic Code(s): I48.3 - Typical atrial flutter (5) Cardiac amyloidosis: Status: Chronic Code(s): E85.4 - Organ-limited amyloidosis; I43 - Cardiomyopathy in diseases classified elsewhere (6) Nonischemic cardiomyopathy: Status: Chronic Code(s): I42.8 - Other cardiomyopathies Medications at Discharge Home Medications tadalafil 10 mg tablet 10 mg PO DAILY PRN #30 tablet 01/26/20 apixaban 5 mg tablet 5 mg PO BID #60 tablet 09/27/20 clopidogrel 75 mg tablet 75 mg PO DAILY #90 tablet 09/27/20 tafamidis 61 mg capsule 61 mg PO DAILY 10/05/20 furosemide 40 mg tablet 80 mg PO DAILY tablet 10/09/20 potassium chloride 10 mEq tablet,extended release 20 meq PO DAILY #180 tablet 10/09/20 amiodarone 200 mg PO DAILY 10/22/20 Hospital Course Operations None Procedures None Summary of Care Provided Minutes Spent on Discharge: 45 Hospital Course: 80-year-old male with past medical history of nonobstructive coronary disease, cardiac amyloidosis, EF of 40% with stage II diastolic dysfunction who presented with progressive shortness of breath as well as leg swelling and weight gain. Patient was cardioverted 2 days prior to admission. He was admitted to the telemetry floor and started on Lasix drip with improvement. Patient's edema appears to have improved. Cardiology was consulted. Patient was ambulated and did not require oxygen. He had extensive education about CHF in the hospital. He was agitating to be discharged. He was discharged to continue on his home Lasix. He will follow-up in the outpatient with cardiology. Physical Exam Narrative Physical exam: General: Alert, Oriented x3, Cooperative, No apparent distress, Well developed HEENT: Atraumatic Oral: Moist Mucosa Neck: Supple Lungs: Clear to auscultation Cardiovascular: HS I+II, regular, no murmurs Abdomen: Bowel Sounds Present, Soft, Non Tender Extremities: No edema Skin: No rashes, No breakdown Neurological: Grossly intact Psych/Mental Status: Appropriate ABG / Lab / Microbiology Data Result Diagrams: 10/23/20 06:44 10/23/20 06:44 D/C Instructions Discharge Diet: 6 Cup Fluid Restriction and 2000 mg Sodium Diet Discharge Activity: Return to Normal Activity Meaningful Use Info Meaningful Use Diagnoses (Choose all that apply): CHF CHF ZENAIDA/ARB ordered at discharge?: No Reason ZENAIDA/ARB not ordered?: Worsening renal dysfunctn Documented LVEF (%): 40 Discharge Plan Admission Admit Date/Time: 10/22/20 14:59 Primary Reason for Your Visit: Acute CHF Attending Provider: Radha Metzger Primary Care Provider: Kev Infante Consulting Providers: Christ Ruiz Instructions Patient Instructions: What Is Heart Failure?, Heart Failure: Tracking Your Weight, Heart Failure: Making Changes to Your Diet, Chronic Kidney Disease Additional Instructions / Restrictions: Continue to take all your medications as prescribed. Take note of changes to your medication. Continue on a low-fat low-salt diet. Restrict your total fluid intake to less than 1500 mls. Weigh yourself every day. Let your doctor know when you gain more than pounds of weight. Follow-up with your primary care doctor in 1 to 2 weeks. You would need repeat blood work to check on your kidney function within a week of discharge. Discharge Orders/Prescriptions Prescriptions: Continued apixaban 5 mg tablet 5 mg PO BID Qty: 60 RF: 3 clopidogrel [Plavix] 75 mg tablet 75 mg PO DAILY Qty: 90 RF: 3 potassium chloride 10 mEq tablet extended release 20 meq PO DAILY Qty: 180 RF: 3 furosemide 40 mg tablet 80 mg PO DAILY RF: 0 amiodarone 200 mg tablet 200 mg PO DAILY RF: 0 tadalafil [Cialis] 10 mg tablet 10 mg PO DAILY PRN (Reason: sexual activity) Qty: 30 RF: 0 Vyndamax 61 mg capsule 61 mg PO DAILY RF: 0 Referrals / Follow Up: Christ Ruiz MD [STAFF PHYSICIAN] - Within 2 Weeks ([facility] Will Be Calling You With An Appointment ) Kev Infante DO [Primary Care Provider] - 11/01/20 10:00 am Disposition Disposition (needs filled in before D/C Order can be placed): Home, self care Visit Charges Inpatient E&M: 01146 Disch Hosp
== END 2020-10-23 18:13 | disposition home or self-care (01) | DRG 292 ==
LOC: ED 11:07 → PCU 15:26
PROVIDERS: Admitting Provider Student in an Organized Health Care Education/Training Program; Emergency Provider Emergency Medicine; PCP Family Medicine; Visit Provider Internal Medicine
DX: I13.0 Hypertensive heart and chronic kidney disease with heart failure and stage 1 through stage 4 chronic kidney disease, or unspecified chronic kidney disease (principal); I50.42 Chronic combined systolic (congestive) and diastolic (congestive) heart failure; I48.3 Typical atrial flutter; E85.4 Organ-limited amyloidosis; I25.10 Atherosclerotic heart disease of native coronary artery without angina pectoris; I42.8 Other cardiomyopathies; I48.0 Paroxysmal atrial fibrillation; E78.5 Hyperlipidemia, unspecified; N18.32 Chronic kidney disease, stage 3b; I43 Cardiomyopathy in diseases classified elsewhere; E66.9 Obesity, unspecified; I25.2 Old myocardial infarction; Z79.02 Long term (current) use of antithrombotics/antiplatelets; Z79.01 Long term (current) use of anticoagulants; Z79.899 Other long term (current) drug therapy; Z86.16 Personal history of COVID-19; Z95.810 Presence of automatic (implantable) cardiac defibrillator; Z68.29 Body mass index [BMI] 29.0-29.9, adult
CPT/HCPCS: 36415; 71045; 80048; 83880; 84132; 84484; 85025; 92960; 93005; 93312; 93320; 93325; 99285; J7040; A4216; J1940

== ENCOUNTER → 2020-10-27 14:08 | Outpatient (CLI) | payer MEDICARE, SELFPAY ==
[2020-10-23 15:03] VITALS: BMI 29.8
[2020-10-27 15:11] LABS: Anion Gap 3 (5-15); BUN 19 mg/dL (7-18); BUN/Creat Ratio 9.7 RATIO (10-20); Calcium,Total 9.6 mg/dL (8.5-10.1); Chloride 101 mmol/L (98-107); Creatinine, Serum 1.96 mg/dL (0.70-1.30); EST Glomerular Filtration Rate 35 mL/min (>60); Est Glom Filt Rate - Afr Amer 43 mL/min (>60); Glucose 138 mg/dL (74-106); Potassium 3.8 mmol/L (3.5-5.1); Sodium Level 136 mmol/L (136-145)
== END ==
PROVIDERS: PCP Family Medicine; Visit Provider Internal Medicine Cardiovascular Disease
DX: N18.9 Chronic kidney disease, unspecified (principal); I50.9 Heart failure, unspecified
CPT/HCPCS: 36415; 80048

== ENCOUNTER → 2020-12-04 11:37 | Outpatient (CLI) | payer MEDICARE, SELFPAY ==
[2020-11-01 10:06] VITALS: BMI 29.0
[2020-12-04 13:21] LABS: Anion Gap 8 (5-15); BUN 21 mg/dL (7-18); BUN/Creat Ratio 9.9 RATIO (10-20); Calcium,Total 9.4 mg/dL (8.5-10.1); Chloride 100 mmol/L (98-107); Creatinine, Serum 2.13 mg/dL (0.70-1.30); EST Glomerular Filtration Rate 32 mL/min (>60); Est Glom Filt Rate - Afr Amer 39 mL/min (>60); Glucose 132 mg/dL (74-106); Magnesium 2.6 mg/dL (1.6-2.6); Potassium 3.5 mmol/L (3.5-5.1); Sodium Level 139 mmol/L (136-145)
== END ==
PROVIDERS: PCP Family Medicine; Referring Provider Internal Medicine Cardiovascular Disease; Visit Provider Internal Medicine Cardiovascular Disease
DX: I50.9 Heart failure, unspecified (principal); N18.9 Chronic kidney disease, unspecified; L25.9 Unspecified contact dermatitis, unspecified cause; I25.10 Atherosclerotic heart disease of native coronary artery without angina pectoris; I48.3 Typical atrial flutter; E85.4 Organ-limited amyloidosis; I43 Cardiomyopathy in diseases classified elsewhere; Z95.810 Presence of automatic (implantable) cardiac defibrillator
CPT/HCPCS: 36415; 80048; 83735

== ENCOUNTER → 2020-12-25 14:27 | Outpatient (CLI) | payer MEDICARE, SELFPAY ==
[2020-12-14 11:11] VITALS: BMI 29.5
--- NOTE | 2020-12-25 14:30 | CT_ITS ---
STUDY: CT ABDOMEN AND PELVIS WITHOUT CONTRAST REASON FOR EXAM: Male, 80 years old. Chronic periumbilical and lower abdominal pain. RADIATION DOSAGE (If Supplied By Facility): CTDIvol = ( 13.18 ) mGy, DLP = ( 638.83 ) mGycm TECHNIQUE: Transaxial images were obtained from the dome of the diaphragm to the symphysis pubis without oral contrast, and without intravenous contrast. Sagittal and coronal images were reconstructed. Individualized dose optimization techniques were used for this CT. COMPARISON: None. FINDINGS: The visualized lung bases are unremarkable. A dual-chamber pacemaker is seen. Normal liver. There are multiple small gallstones. There are multiple benign calcified granulomata of the spleen. Normal pancreas. Small amount of perihepatic and perisplenic fluid. Small amount of fluid in the paracolic gutters. Normal bilateral adrenal glands. Normal right kidney. Several tiny nonobstructive left intrarenal calculi. There is a small hiatal hernia. Normal small intestine. Normal colon. The appendix is visualized and appears normal. There is diffuse atherosclerotic calcification of the abdominal aorta, without a demonstrated aneurysm. Normal inferior vena cava. Normal retroperitoneum. Normal urinary bladder. There is enlargement of the prostate gland. Prostatic calcification. Small amount of free fluid in the pelvis. There is a small umbilical hernia containing fat. There are mild degenerative changes of the visualized lumbar spine. Patient is status post right hip replacement. CT/Abdomen/Pelvis without Cont IMPRESSION: Multiple small gallstones. Small amount of perihepatic and perisplenic fluid. Nonobstructive left intrarenal calculi. Electronically Signed: Abraham Moffett MD at 15:39 EDT , Service support ,
== END ==
PROVIDERS: PCP Family Medicine; Referring Provider Nurse Practitioner Family; Visit Provider Nurse Practitioner Family
DX: R10.9 Unspecified abdominal pain (principal)
CPT/HCPCS: 74176

== ENCOUNTER → 2021-01-04 09:46 | Outpatient (CLI) | payer MEDICARE, SELFPAY ==
[2020-12-14 11:11] VITALS: BMI 29.5
[2021-01-04 10:47] LABS: Anion Gap 4 (5-15); BUN 22 mg/dL (7-18); BUN/Creat Ratio 10.1 RATIO (10-20); Calcium,Total 9.1 mg/dL (8.5-10.1); Chloride 104 mmol/L (98-107); Creatinine, Serum 2.17 mg/dL (0.70-1.30); EST Glomerular Filtration Rate 31 mL/min (>60); Est Glom Filt Rate - Afr Amer 38 mL/min (>60); Glucose 91 mg/dL (74-106); Potassium 3.8 mmol/L (3.5-5.1); Sodium Level 140 mmol/L (136-145)
== END ==
PROVIDERS: PCP Family Medicine; Referring Provider Internal Medicine Cardiovascular Disease; Visit Provider Internal Medicine Cardiovascular Disease
DX: I50.9 Heart failure, unspecified (principal); N18.9 Chronic kidney disease, unspecified; L25.9 Unspecified contact dermatitis, unspecified cause; I25.10 Atherosclerotic heart disease of native coronary artery without angina pectoris; I48.3 Typical atrial flutter; Z95.810 Presence of automatic (implantable) cardiac defibrillator
CPT/HCPCS: 36415; 80048

== ENCOUNTER 2021-01-26 10:30 | Outpatient (RCR) | payer MEDICARE, SELFPAY ==
[2020-12-14 11:11] VITALS: BMI 29.5
--- NOTE | 2020-12-28 13:21 | HP.PTEVAL_ITS ---
Patient's Visit Information LUIS FERNANDO MAE is a 80 year old M referred to Physical Therapy by TERI SchafferC with a diagnosis of cervicalgia. Date of Evaluation: 12/28/20 Physical Therapist: Trenton Bush, PT, ATC - Visit Plan Frequency: 2x /Week Duration: 4-6 Weeks Plan: Trial of cervical spine traction, assess benefit next session. Postural edu, DTR, mobs, MH, and scap stab ex's - Subjective Pt reports he has had cervical spine pain for 3-4 years. Pt reports he is an avid bike rider and notes when he is leaning forward on his bike and looks forward, he experiences significant pain. Pt reports no UE radiculopathy at this time. Pt notes no Dx tests at this time. No sleep difficulty at this time secondary to pain. Pt reports he also has difficulty with looking to his L and R sides secondary to pain. Pt notes this makes it hard at times to drive. Pt reports he is able to perform most of his daily activities. 0/10 pain at rest, 5/10 pain at worst. - Pain Neck pain Pain Intensity (Out of 10): 0 Pain Intensity Range: 5 - Objective Neuro: B UE sensation is WNL to light touch. B bicepital reflex= 2/3. Palpation: Sig muscle guarding throughout cervical spine, specifically the scalenes, UT and paraspinal musculature. ROM: Pt is limited at all end ranges. MMT: B UE's are rated at 5/5 throughout. Repeated movments: NE with all movements. SPecial testing: distraction decreased pain - Goals Goal 1:: Decrease cervical spine pain x 50% to aid with sleeping Goal Time Frame: 4-6 Weeks Goal 2:: Increase Cervical spine ROM x 1 grade in all planes to aid with IADL's Goal Time Frame: 4-6 Weeks Goal 3:: I with HEP Goal Time Frame: 4-6 Weeks - Rehabilitation Potential Physical Therapy Diagnosis: Pt reports neck pain and limited cervical spine ROM secondary to degenerative changes Rehabilitation Potential: Good - Anticipated Interventions Patient/Client Instruction: Educate patient on: Condition, Plan of Care For the Purpose of:: To improve self management Therapeutic Exercise to Include: Strength training, Postural training, Flexibilty training, Active ROM, Scapular Strength/Stabilization For the Purpose of:: To decrease pain, To increase ROM Cryotherapy (ice pack, ice massage): Yes Thermo therapy (hot pack): Yes For the Purpose of:: To decrease pain Thank you for the opportunity to evaluate your patient. For Medicare and Medicare HMO plans, please review the plan of care and approve it. It will need to be FAXED BACK to us at [phone] for Medicare purposes. For Medicare only, by signing this I certify the plan of care. Please let me know if there are questions or concerns regarding this plan of care. Physician Signature: Date:
--- NOTE | 2021-04-20 12:38 | HP.PT.NRP ---
LUIS FERNANDO MAE was seen in my office for initial evaluation on 12/28/20. The following Plan of Care was established for this patient: Initial Frequency: 2x /Week Initial Duration: 4-6 Weeks Patient/Client Instruction: Educate patient on: Condition, Plan of Care For the Purpose of:: To improve self management Therapeutic Exercise to Include: Strength training, Postural training, Flexibilty training, Active ROM, Scapular Strength/Stabilization For the Purpose of:: To decrease pain, To increase ROM Cryotherapy (ice pack, ice massage): Yes Thermo therapy (hot pack): Yes For the Purpose of:: To decrease pain This patient was last seen in our office . Pertinent comments regarding their Physical therapy will appear below: Pt was treated for 7 PT visits secondary to cervical spine pain through the date of 01/26/21. Pt has not returned through todays date and is discontinued at this time. At this point I will be discontinuing this patient from physical therapy. I would be happy to see this patient again in the future if found appropriate by the physician. Thank you! Trenton Bush, PT, ATC Balance/Gait/Functional tests - Balance/Special Test Scores Oswestry Neck Score: 4
== END 2021-01-26 19:00 | disposition home or self-care (01) ==
LOC: PT 10:30
PROVIDERS: PCP Family Medicine; Referring Provider Nurse Practitioner Family; Visit Provider Nurse Practitioner Family
DX: M54.2 Cervicalgia (principal); G89.29 Other chronic pain
CPT/HCPCS: 97012; 97140; 97161

== ENCOUNTER → 2021-02-12 09:52 | Outpatient (CLI) | payer MEDICARE, SELFPAY ==
[2021-01-09 13:37] VITALS: BMI 28.4
[2021-02-07 14:06] LABS: Anion Gap 4 (5-15); BUN 23 mg/dL (7-18); BUN/Creat Ratio 10.3 RATIO (10-20); Calcium,Total 9.3 mg/dL (8.5-10.1); Chloride 107 mmol/L (98-107); Creatinine, Serum 2.23 mg/dL (0.70-1.30); EST Glomerular Filtration Rate 30 mL/min (>60); Est Glom Filt Rate - Afr Amer 37 mL/min (>60); Glucose 127 mg/dL (74-106); Potassium 4.2 mmol/L (3.5-5.1); Sodium Level 139 mmol/L (136-145)
--- NOTE | 2021-02-12 09:53 | ECHOCS_ITS ---
Reason For Study: Afib, Aflutter Procedure This was a 2D Doppler, Color Flow transthoracic echocardiogram. Myocardial strain analysis was performed in this exam to aid in the assessment of cardiac function. Contrast injection was performed. Exam performed in department. Left Ventricle Normal LV size. Severe concentric left ventricular hypertrophy. The estimated ejection fraction is 45 %. There is mild to moderate global hypokinesis of the left ventricle. Right Ventricle Normal RV size. ICD or pacer leads identified within the right ventricle. Normal systolic function. Atria The left atrium is mildly enlarged. The right atrium is mildly enlarged. Mitral Valve Normal mitral valve. Mild (1+) eccentric mitral valve insufficiency. Tricuspid Valve Normal tricuspid valve. Mild tricuspid valve insufficiency. Pulmonary artery systolic pressure is 24 mmHg. Aortic Valve Normal aortic valve. Trisinus/trileaflet aortic valve. Pulmonic Valve Normal pulmonic valve. Great Vessels Normal aortic root. The pulmonary artery is normal size. The inferior vena cava is dilated. Pericardium/Pleural No pericardial effusion. Small left pleural effusion. Medication Diluted definity 3ml given slow IV push to enhance endocardial definition. MMode/2D Measurements & Calculations LVIDd: 4.3 cm IVSd: 2.0 cm Ao root diam: 3.2 cm LVIDs: 3.2 cm LVPWd: 1.7 cm RVDd: 4.3 cm FS: 25.1 % LAV(MOD-bp): 63.9 ml LVAd ap4: 29.7 cm2 SV(MOD-sp4): 38.7 ml LAV(MOD-bp) Indexed: 30.8 ml/m2 LVLd ap4: 8.8 cm LAV(MOD-sp2): 72.4 ml EDV(MOD-sp4): 86.2 ml LAV(MOD-sp4): 56.4 ml EDV(sp4-el): 85.5 ml LVAs ap4: 19.8 cm2 LVLs ap4: 7.1 cm ESV(MOD-sp4): 47.5 ml ESV(sp4-el): 46.6 ml EF(MOD-sp4): 44.9 % EF(sp4-el): 45.5 % SV(sp4-el): 38.9 ml LA A4 area: 19.7 cm2 LA dimension(2D): 4.9 cm RA A4 area: 22.6 cm2 Doppler Measurements & Calculations Ao V2 max: 117.8 cm/sec LV V1 max: 111.4 cm/sec PA V2 max: 49.6 cm/sec Ao max P.5 mmHg LV V1 max P.0 mmHg Ao V2 mean: 86.0 cm/sec Ao mean P.2 mmHg Ao V2 VTI: 22.4 cm TR max moriah: 224.5 cm/sec TR max P.2 mmHg ECHO/Echo Complete W/ Contrast Interpretation Summary Normal LV size. Severe concentric left ventricular hypertrophy. The estimated ejection fraction is 45 %. There is mild to moderate global hypokinesis of the left ventricle. 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 The global longitudinal strain is severely abnormal. The global longitudinal strain = -7.6% (abnormal). The global longitudinal strain has worsened. Ordering Physician: Kev Infante Referring Physician: Christ Ruiz Performed By: Carmen Mora, PENELOPE, RVT
== END ==
PROVIDERS: PCP Family Medicine; Referring Provider Internal Medicine Cardiovascular Disease; Visit Provider Internal Medicine Cardiovascular Disease
DX: I42.8 Other cardiomyopathies (principal)
CPT/HCPCS: 36415; 80048; 93306; Q9957; A4216; C8929; J3490

== ENCOUNTER → 2021-03-27 14:23 | Outpatient (CLI) | payer MEDICARE, SELFPAY ==
[2021-03-27 15:46] LABS: Anion Gap 6 (5-15); BUN 20 mg/dL (7-18); BUN/Creat Ratio 9.6 RATIO (10-20); Calcium,Total 9.2 mg/dL (8.5-10.1); Chloride 101 mmol/L (98-107); Creatinine, Serum 2.09 mg/dL (0.70-1.30); EST Glomerular Filtration Rate 33 mL/min (>60); Est Glom Filt Rate - Afr Amer 40 mL/min (>60); Glucose 120 mg/dL (74-106); Sodium Level 138 mmol/L (136-145)
== END ==
PROVIDERS: PCP Family Medicine; Visit Provider Internal Medicine Cardiovascular Disease
DX: I42.8 Other cardiomyopathies (principal); I50.42 Chronic combined systolic (congestive) and diastolic (congestive) heart failure
CPT/HCPCS: 36415; 80048

== ENCOUNTER → 2021-04-24 12:41 | Outpatient (CLI) | payer MEDICARE, SELFPAY ==
--- NOTE | 2021-04-24 12:50 | SP.MBSS_ITS ---
Modified Barium Swallow - Patient Information Study Date: 04/24/21 Study Time: 12:50 Direct Billable Minutes: 135 Total Minutes procedure & reportin Diagnosis: order stating difficulty with speech Referring Physician: Gonzalo Blackmon NP Reason for Referral: Referred following clinical bedside swallowing evaluation completed as an outpatient to objectively assess swallow function under fluoroscopy. reports chronic throat clearing, present both with and without PO intake. Denies coughing, choking or difficulty swallowing. Denies recent or recurrent pneumonia . Denies unintentional weight loss. Medical History: Acute kidney injury superimposed on chronic kidney disease; Arthritis; Ascites; Atherosclerosis of coronary artery of [place] heart without angina pectoris; Atrial tachycardia, paroxysmal; Atrioventricular node dysfunction; Calculus of left kidney; Cardiac amyloidosis; Chronic abdominal pain; Chronic combined systolic and diastolic CHF (congestive heart failure); Chronic neck pain; Chronic systolic (congestive) heart failure; COVID-19 virus detected (06/20/20); Diastolic dysfunction, left ventricle; Dysfunction of left eustachian tube; Gallbladder calculus; History of basal cell cancer; History of ST elevation 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 cardial infarction (STEMI) (09/20/20); Hyperlipidemia; Multiple premature ventricular complexes; Nonischemic cardiomyopathy; Obesity; Paroxysmal atrial fibrillation; Suspected cerebrovascular accident (CVA); Syncope (03/15/21); Typical atrial flutter; Ventricular fibrillation and flutter (09/20/20); Vertigo Surgical History: Biventricular ICD (implantable cardioverter-defibrillator) in place (05/04/19); Hx of elbow surgery; H/O knee surgery; Hx of nasal septoplasty; Hx of percutaneous transluminal coronary angioplasty (09/20/20); Hx of repair of right rotator cuff; Hx of cardioversion (10/20/20); Hx of hand surgery; Hx of left heart catheterization (09/22/20); Hx of total left knee replacement (03/2017); Hx of tonsillectomy; Left AC Separation Repair; Presence of tooth-root and mandibular implants; S/P cryoablation of arrhythmia (10/21/16) Dentition: WNL - dental implants Mental Status: WNL Respiratory Status: Oxygenating on Room Air - Penetration-Aspiration Scale Penetration-Aspiration Scale: OBJECTIVE ASSESSMENT OF SWALLOW FUNCTION (QUANTITATIVE ? PER TRIAL): PENETRATION / ASPIRATION SCALE (NASSAR): 1 = does not enter airway 2 = enters airway/above vocal folds/ejected 3 = enters airway/above vocal folds/not ejected 4 = enters airway/contacts vocal folds/ejected 5 = enters airway/contacts vocal folds/not ejected 6 = enters airway/below vocal folds/ejected 7 = enters airway/below vocal folds/not ejected despite effort 8 = enters airway/below vocal folds/no effort - Penetration-Aspiration Scale Score Thin Liquid via teaspoon Result: 1= does not enter airway Thin Liquid via teaspoon Trial 2 Result: 1= does not enter airway Thin Liquid via small single sip from cup Result: 1= does not enter airway Thin Liquid via sequential sips from cup Result: 1= does not enter airway Thin Liquid via single sip from straw Result: 1= does not enter airway Pudding Result: 1= does not enter airway Cookie Result: 1= does not enter airway Thin Liquid via small single sip from cup Trial 2 Result: 1= does not enter airway - Oral Phase Labial Seal: No Labial Escape Tongue Control During Bolus Hold: Cohesive bolus between tongue to palatal seal Bolus Preparation/Mastication: Timely and efficient chewing and mashing Bolus Transport/Lingual Motion: Repetitive/disorganized tongue motion Oral Residue: Trace residue lining oral structures - Pharyngeal Phase Initiation of Pharyngeal Swallow: Bolus head at posterior angle of ramus at first hyoid excursion Soft Palate Elevation: No bolus between soft palate and pharyngeal wall Laryngeal Elevation: Comp. Superior move thyroid cart w/comp. apprx arytenoid cart-epig pet Anterior Hyoid Excursion: Complete anterior movement Epiglottic Movement: Complete inversion Laryngeal Vestibule Closure at Height of Swallow: Complete; no air/contrast in laryngeal vestibule Pharyngeal Stripping Wave: Present - diminished Pharyngoesophageal Segment Opening: Parital distension and partial duration; parital obstruction of flow Tongue Base Retraction: Narrow column of contrast between tongue base & post. pharyngeal wall Pharyngeal Residue: Collection of residue within or on pharyngeal structures - Esophageal Phase Esophageal Clearance: Esophageal retention w/ retrograde flow below pharyngoesophageal seg. - Diagnosis/Impression Diagnosis: mild oropharyngeal dysphagia (R13.12) Impression: Swallow function is characterized by: * repetitive lingual pumping noted w/ oral bolus transportation of pudding only, improved lingual coordination w/ all other consistencies assessed * reduced tongue base retraction w/ mild post prandial residue retention * abnormal bulging protrusion of the posterior pharyngeal wall/C-spine noted at the C4 level which impeded pharyngeal stripping wave below C-4 and resulted in incomplete bolus clearance from the valleculae w/ significant retention of solid texture, necessitating multiple swallows/liquid wash to effectively clear the bolus * poor PES distention/duration d/t prominent cricopharyngeal hypertrophy at C5-6 level w/ post prandial pyriform residue retention, able to sufficiently clear w/ a liquid wash Cricopharyngeal Hypertrophy C-spine/pharyngeal wall protrusion * screening of the esophagus for bolus clearance revealed some esophageal retention w/ tertiary contractions resulting in retrograde bolus flow below the PES * no laryngeal vestibule penetration or aspiration occurred during this study, although the patient is at increased risk for post prandial penetration of pharyngeal residue which may be contributing to chronic throat clearing Diet Recommended: * Regular Textures (IDDSI: 7) * Thin Liquids (IDDSI: 0) Compensatory Strategies Recommended: * Alternate bites of solids w/ sips of liquids * Dry/extra swallow following each bite/sip to clear pharyngeal residue * Sit upright w/ hip flexion at 90 degrees during PO intake * Remain seated upright for 30 minutes after PO intake (GERD precautions) Additional Speech Therapy Services Recommended: Yes * training and implementation of recommended compensatory strategies * training and implementation of recommended oropharyngeal strengthening exercises to facilitate improved lingual strength/control, tongue base retraction, pharyngeal contraction and pharyngoesophageal segment distention Repeat MBS Recommended: No Referrals Recommended: * Would strongly encourage further workup via ENT d/t anatomical variances observed under fluoroscopy (bulging protrusion of the posterior pharyngeal wall/spine at the C4 level and cricopharyngeal hypertrophy at C5-6 *see above images*) * Would strongly encourage follow up w/ neurology if not already doing so Education Provided: Images were reviewed w/ the patient and his following MBS conclusion. Extended time spent providing education re: anatomy/physiology of the swallowing mechanism and subsequent impact of deficits identified on overall swallow function. Results and recommendations for follow up were discussed w/ both the patient and verbalizing understanding of the recommendations/education provided. - Status Active ST Patient: Active - Contact Information [facility] Speech Therapy:: Candis Nathan M.A., CCC-STAFFING ADMINISTRATOR [facility] [id number] [place] [address] [phone] [email or web address] 04/24/21 15:05
== END ==
PROVIDERS: PCP Family Medicine; Referring Provider Nurse Practitioner Family; Visit Provider Nurse Practitioner Family
DX: R47.9 Unspecified speech disturbances (principal); G45.9 Transient cerebral ischemic attack, unspecified
CPT/HCPCS: 74230; 92611

== ENCOUNTER → 2021-06-12 13:46 | Outpatient (CLI) | payer MEDICARE, SELFPAY ==
[2021-06-12 15:24] LABS: AST(SGOT) 27 U/L (15-37); Alanine Aminotransfer ALT/SGPT 29 U/L (16-61); Albumin, Serum 3.6 g/dL (3.2-5.0); Alkaline Phosphatase 261 U/L (45-117); Anion Gap 11 (5-15); BUN 22 mg/dL (7-18); BUN/Creat Ratio 10.8 RATIO (10-20); Bilirubin, Direct 0.66 mg/dL (0.00-0.30); Calcium,Total 8.9 mg/dL (8.5-10.1); Chloride 101 mmol/L (98-107); Cholesterol 115 mg/dL (200); Creatinine, Serum 2.04 mg/dL (0.70-1.30); EST Glomerular Filtration Rate 34 mL/min (>60); Est Glom Filt Rate - Afr Amer 41 mL/min (>60); Globulin 3.9 g/dL (2.2-4.2); Glucose 121 mg/dL (74-106); High Density Lipoprotein 49 mg/dL; Magnesium 2.5 mg/dL (1.6-2.6); Potassium 3.7 mmol/L (3.5-5.1); Protein, Total 7.5 g/dL (6.4-8.2); Sodium Level 141 mmol/L (136-145); Triglycerides 49 mg/dL; Very Low Density Lipoprotein 10 mg/dL (5-40)
== END ==
PROVIDERS: PCP Family Medicine; Referring Provider Internal Medicine Cardiovascular Disease; Visit Provider Internal Medicine Cardiovascular Disease
DX: E85.4 Organ-limited amyloidosis (principal); I43 Cardiomyopathy in diseases classified elsewhere; E78.00 Pure hypercholesterolemia, unspecified
CPT/HCPCS: 36415; 80048; 80061; 80076; 83735; 84443

== ENCOUNTER 2021-07-04 11:00 | Outpatient (RCR) | payer MEDICARE, SELFPAY ==
--- NOTE | 2021-03-02 08:27 | HP.OTEVAL ---
Patient's Visit Information LUIS FERNANDO MAE is a 80 year old M, referred to Occupational Therapy by EVANS DE LA PAZ, with a diagnosis of EPL laceration. Date of Evaluation: 02/28/21 Occupational Therapist: Jennifer Tanner, DANDYR/Juanita, CHT - Subjective This 80 year old male was seen for OT eval with dx of left laceration on 02/14/21 . pt states he was pressure washing his deck when he sustained the high pressure injury. sx was on 02/15/21 with a EPL repair with a modified Ramirez suture of 3-0 ethibond for a 4 cores and 1 final [id number] oversewn to help reinforce repair. . pt arrives for OT order for eval and treat custom orthosis to allow for protection while structures are healing for the EPL repair. Pt denies pain, denies numbness or tingling. Pt motivated to return to his PLOF. - ROM Wrist: right 60/60 left NT CMC: right 15 left NT MP: right 55 Left NT IP: right 50 Left NT Radial Abduction: right 45 left NT ROM Comments: left will be tested at later date - Strength Maintenance Worker House Trailer: right 85# NT Lateral Pinch: right 16# NT Tripod Pinch: right 18# NT - Sensation Sensation Comments: denies - Quick DASH-Disab of Arm,Shoulder& Hand Quick DASH Score: 61.3625 - Hand/Wrist Evaluation Total Score of Pain & Functional Sections: 64 - Goals Goal:100% adherence to protocol: Yes Comment: EPL repair Goal:Daily scar massage when approriate: Yes Goal:ROM equal to unaffected hand: Yes Goal:Maintenance Worker House Trailer/Pinch strength at least 75% of unaffected hand: Yes Goal:PIP Circumferences equal to unaffected hand: Yes Goal:Full use of affected hand in daily activities including: Yes Goal:Decrease scar hypersensitivity: Yes - Rehabilitation General Assessment: pt s/p 1 weeks 6 days week left EPL repair. pt arrives with newly healing structures and limited use of left UE with ADLS and IADLs. pt demo a need for skilled OT services 1x week for 6 weeks. Today therapist ishaan. custom orthosis placing IP in ext- incision looks clean and dry no signs of infection- therapist ed. pt on skin precautions and the EPL protocol. therapist will initiate AROM at week 4 to wrist and thumb initiating with mid-range for 3-4 days and than progressing to full active IP extension of the thumb. week 5 will add AROM with composite active wrist and thumb flexion- week 6 PROM added as needed and decrease thumb orthosis use for light activity. Therapy will progress with john hand and shoulder protocol unless otherwise instructed- pt demo understanding of orthosis use and agree to POC. Rehabilitation Potential: Good - Anticipated Interventions Early Active Motion, A/AAROM/PROM, Strengthening, Scar Care, Triggerpoint Release, Desensitization, Modalities, Orthoses, Joint Protection/Energy Conservation, Ergonomic Education, ADL Training, Caregiver Training - Visit Plan Frequency: 1-2x /Week Duration: 2 Months TEXT: Thank you for the opportunity to evaluate your patient. For Medicare and Medicare HMO plans, please review the plan of care and approve it. It will need to be FAXED BACK to us at [phone] for Medicare purposes. Please let me know if there are questions or concerns regarding this plan of care. Physician Signature: Date:
--- NOTE | 2021-03-22 16:18 | HP.OTREVAL ---
EVANS DE LA PA[facility], It has been my pleasure to treat LUIS FERNANDO MAE over the last 3 visits for EPL laceration. Please see the progress note below for an update on the occupational therapy plan of care! Subjective: pt arrives 5 weeks s/p- pt has been out of his splint about 60 % of the time. pt did suffer a TIA last week has slurred speech and slight right side face droop - pt performing ex. and using orthosis at night Objective/Function: MP 55*. IP 45*. pt demo PA WFL and RA 50*. pt limited with IP ext- pt demo with scar adhesions - pt is performing his scar mtg- use of elastomer in orthosis at night and performing AROM of thumb to best ability-. therapy will cont with decreasing scar adhesions and functional pinch/rn occupational Plan Frequency: 1-2x /Week Duration: 2 Months Plan: will cont with ROM, scar mtg and orthosis at night Goals - Goals Patient Goals: Regain Mobility, Regain Strength, Use Hand/Wrist/Arm Normally Again Goal:100% adherence to protocol: Yes Goal:Daily scar massage when approriate: Yes Goal:ROM equal to unaffected hand: Yes Goal:Lapping Machine Set Up Operator/Pinch strength at least 75% of unaffected hand: Yes Goal:PIP Circumferences equal to unaffected hand: Yes Goal:Full use of affected hand in daily activities including: Yes Goal:Decrease scar hypersensitivity: Yes Anticipated Interventions Anticipated Interventions: Early Active Motion, A/AAROM/PROM, Strengthening, Scar Care, Triggerpoint Release, Desensitization, Modalities, Orthoses, Joint Protection/Energy Conservation, Ergonomic Education, ADL Training, Caregiver Training Please do not hesitate to contact me at [phone] by phone or if you have questions or concerns regarding this new plan of care! Sincerely, Jennifer Tanner, OTR/L, CHT
--- NOTE | 2021-04-04 15:18 | HP.SP.AD_ITS ---
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 Right Hearing Abillity: Normal Left Hearing Abillity: Normal Visual Assistive Devices: Glasses Patients Living Arrangements: With Significant Other Patient Allergies - Allergies Allergies aspirin Adverse Reaction (Verified 03/27/21 12:15) Swelling ciprofloxacin Adverse Reaction (Verified 03/27/21 12:15) swelling metoprolol Adverse Reaction (Verified 03/27/21 12:15) weakness and collapse Penicillins Adverse Reaction (Verified 03/27/21 12:15) Swelling Ftkrbfc-Nvg-Pdk Reductase Inhibitor Adverse Reaction (Verified 03/27/21 12:15) myalgia Sulfa (Sulfonamide Antibiotics) Adverse Reaction (Verified 03/27/21 12:15) swelling Subjective Oral Motor - Subjective Facial Drooping: Right - Comments Comments: Mild facial droop on the right. Objective Oral Motor - Oral Status Dentition: WNL - Labial Impairment: WNL Closure: WNL Pucker: WNL Retraction: WNL Alternating Pucker/Retraction: WNL Involuntary Movement noted: No - Lingual Impairment: WNL Protrusion: WNL Retraction: WNL Lateralization: WNL Involuntary Movement: No - Jaw Impairment: WNL - Oral Motor Comments Comments: Overall David has the oral motor abilities. He lacks volume and also isn't speaking nearly as much ( per and OT). He often spoke with a narrowed mouth position but was able to be cued for increased loudness which then had increased clarity. - Respiratory Status Respiratory Status: Room Air Subjective Dysphagia - Current Diet Solids Current Diet: Regular - Current Diet Liquids Current Liquids: Thin Other Impressions - Comments Comments -: The patient is not allowed to drive for one month. He stated that he doesn't know why. He also did not know why he may need speech therapy or that he is having any difficulty. He lacks awareness into his medical history as he was unable to give information on being taken to ER after collapsing. Therapist asked multiple times in different ways for him to explain when/how this recent medical issue occurred or the possible causes of his deficits and he was unable to answer/ unable to recall. His reported that he is experiencing depression but the patient denied it. He was observed to seem anxious with both legs tapping up and down. Plan - Plan Plan: Speech Therapist is warranted for increased communication abilities as well as further evaluation of cognitive deficits and possible dysphagia. the patient is willing to complete short term therapy with the focus on increased communication currently until results of MBS return. - Recommendations MBS: Yes - Frequency Frequency: 1x/Week Duration: 4 Weeks Visits in this POC: 4 - Prognosis Prognosis: Good - Goal #1-5 Goal #1: Dysphagia goals pending results of MBS Goal #2: The Patient will independently demonstrate and utilize recommended compensatory articulation techniques (ex. increased vocal intensity) to facilitate increased expressive communication abilities in the home and social environments. Goal #3: Cognitive testing with goals added at that time. Education - Patient has Indicated that the Following Identified Educational Needs: None The Patient has indicated that they have no educational or learning abilities that may effect their care.: Yes - Patient Instruction Patient Education: Diagnosis, Treatment Plan, Goals Person Taught: Patient, Significant Other Teaching Method: Discussion Response to teaching: Reinforcement needed
--- NOTE | 2021-10-03 15:18 | HP.SP.DC_ITS ---
ST Discharge Summary - Discharged: Discharge: David Ennis is discharged from speech therapy at [facility] as of October 03, 2021. 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 Patient was resistant to therapy even though he stated he had memory deficits. The patient also was much softer in volume after his CVA. One goal addressed utilizing recommended compensatory techniques such as increasing loudness and speaking clearly. He was able to do so when cued. 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 with diet recommendations of regular. Thin. At his last session, Patient completed CLQT with all results within normal limits except memory which was mild. Patient stated that he will complete exercises (DYE OPERATOR provided patient with home program) of activities until August 14. Patient will contact therapist if he wishes to return. No further visits were scheduled. Thank you for allowing me to participate in the care of this patient.
== END 2021-07-04 19:00 | disposition home or self-care (01) ==
LOC: SP 11:00
PROVIDERS: PCP Family Medicine; Visit Provider Internal Medicine Cardiovascular Disease
DX: S61.412D Laceration without foreign body of left hand, subsequent encounter (principal); X58.XXXD Exposure to other specified factors, subsequent encounter; I69.392 Facial weakness following cerebral infarction; R47.9 Unspecified speech disturbances; E85.4 Organ-limited amyloidosis; I43 Cardiomyopathy in diseases classified elsewhere; I25.10 Atherosclerotic heart disease of native coronary artery without angina pectoris; I25.2 Old myocardial infarction; I50.42 Chronic combined systolic (congestive) and diastolic (congestive) heart failure; Z95.810 Presence of automatic (implantable) cardiac defibrillator
CPT/HCPCS: 92507; 92523; 97035; 97140; 97166; 97530; 97760

== ENCOUNTER → 2021-10-23 | Outpatient (CLI) | payer MEDICARE, SELFPAY ==
[2021-10-23 13:06] LABS: AST(SGOT) 24 U/L (15-37); Alanine Aminotransfer ALT/SGPT 23 U/L (16-61); Albumin, Serum 3.4 g/dL (3.2-5.0); Alkaline Phosphatase 260 U/L (45-117); Anion Gap 7 (5-15); BUN 29 mg/dL (7-18); BUN/Creat Ratio 13.1 RATIO (10-20); Bilirubin, Direct 0.67 mg/dL (0.00-0.30); Chloride 106 mmol/L (98-107); Creatinine, Serum 2.21 mg/dL (0.70-1.30); EST Glomerular Filtration Rate 31 mL/min (>60); Est Glom Filt Rate - Afr Amer 37 mL/min (>60); Glucose 97 mg/dL (74-106); Magnesium 2.4 mg/dL (1.6-2.6); Potassium 4.2 mmol/L (3.5-5.1); Protein, Total 7.4 g/dL (6.4-8.2); Sodium Level 140 mmol/L (136-145)
== END | disposition home or self-care (01) ==
LOC: LAB 12:00
PROVIDERS: PCP Family Medicine; Referring Provider Internal Medicine Cardiovascular Disease; Visit Provider Internal Medicine Cardiovascular Disease
DX: I50.42 Chronic combined systolic (congestive) and diastolic (congestive) heart failure (principal); E78.00 Pure hypercholesterolemia, unspecified
CPT/HCPCS: 36415; 80048; 80076; 83735; 84443

== ENCOUNTER → 2022-07-16 | Outpatient (CLI) | payer MEDICARE, SELFPAY ==
[2022-07-16 10:50] LABS: AST(SGOT) 34 U/L (15-37); Alanine Aminotransfer ALT/SGPT 31 U/L (16-61); Albumin, Serum 3.9 g/dL (3.2-5.0); Alkaline Phosphatase 216 U/L (45-117); Anion Gap 8 (5-15); BUN 29 mg/dL (7-18); BUN/Creat Ratio 16.6 RATIO (10-20); Bilirubin, Direct 0.38 mg/dL (0.00-0.30); Calcium,Total 9.3 mg/dL (8.5-10.1); Chloride 103 mmol/L (98-107); Cholesterol 118 mg/dL (200); Creatinine, Serum 1.75 mg/dL (0.70-1.30); EST Glomerular Filtration Rate 40 mL/min (>60); Est Glom Filt Rate - Afr Amer 48 mL/min (>60); Glucose 99 mg/dL (74-106); High Density Lipoprotein 60 mg/dL; Potassium 4.1 mmol/L (3.5-5.1); Protein, Total 7.9 g/dL (6.4-8.2); Sodium Level 141 mmol/L (136-145); Thyroid Stim Hormone (TSH) 2.49 uIU/mL (0.358-3.74); Triglycerides 51 mg/dL; Very Low Density Lipoprotein 10 mg/dL (5-40)
== END | disposition home or self-care (01) ==
LOC: LAB 09:41
PROVIDERS: PCP Nurse Practitioner Primary Care; Referring Provider Internal Medicine Cardiovascular Disease; Visit Provider Internal Medicine Cardiovascular Disease
DX: K74.60 Unspecified cirrhosis of liver (principal); I43 Cardiomyopathy in diseases classified elsewhere; E85.4 Organ-limited amyloidosis; E78.00 Pure hypercholesterolemia, unspecified
CPT/HCPCS: 36415; 80048; 80061; 80076; 84443

== ENCOUNTER → 2022-10-31 | Outpatient (CLI) | payer MEDICARE, SELFPAY ==
[2022-10-31 12:48] LABS: AST(SGOT) 30 U/L (15-37); Alanine Aminotransfer ALT/SGPT 30 U/L (16-61); Albumin, Serum 3.8 g/dL (3.2-5.0); Alkaline Phosphatase 186 U/L (45-117); Bilirubin, Direct 0.45 mg/dL (0.00-0.30); Protein, Total 7.8 g/dL (6.4-8.2)
== END | disposition home or self-care (01) ==
LOC: LAB 11:25
PROVIDERS: PCP Nurse Practitioner Primary Care; Referring Provider Internal Medicine Cardiovascular Disease; Visit Provider Internal Medicine Cardiovascular Disease
DX: K74.60 Unspecified cirrhosis of liver (principal)
CPT/HCPCS: 36415; 80076

== ENCOUNTER → 2023-04-08 | Outpatient (CLI) | payer MEDICARE, SELFPAY ==
[2023-04-08 11:49] LABS: AST(SGOT) 31 U/L (15-37); Alanine Aminotransfer ALT/SGPT 36 U/L (16-61); Albumin, Serum 3.7 g/dL (3.2-5.0); Alkaline Phosphatase 211 U/L (45-117); Anion Gap 0 (5-15); BUN 20 mg/dL (7-18); BUN/Creat Ratio 13.1 RATIO (10-20); Bilirubin, Direct 0.28 mg/dL (0.00-0.30); Calcium,Total 9.2 mg/dL (8.5-10.1); Chloride 109 mmol/L (98-107); Cholesterol 125 mg/dL (200); Creatinine, Serum 1.53 mg/dL (0.70-1.30); EST Glomerular Filtration Rate 47 mL/min (>60); Est Glom Filt Rate - Afr Amer 56 mL/min (>60); Globulin 3.8 g/dL (2.2-4.2); Glucose 97 mg/dL (74-106); High Density Lipoprotein 55 mg/dL; Magnesium 2.5 mg/dL (1.6-2.6); Potassium 4.1 mmol/L (3.5-5.1); Protein, Total 7.5 g/dL (6.4-8.2); Sodium Level 139 mmol/L (136-145); Thyroid Stim Hormone (TSH) 1.76 uIU/mL (0.358-3.74); Triglycerides 72 mg/dL; Very Low Density Lipoprotein 14 mg/dL (5-40)
== END | disposition home or self-care (01) ==
LOC: LAB 10:14
PROVIDERS: PCP Nurse Practitioner Primary Care; Referring Provider Internal Medicine Cardiovascular Disease; Visit Provider Internal Medicine Cardiovascular Disease
DX: E85.4 Organ-limited amyloidosis (principal); I43 Cardiomyopathy in diseases classified elsewhere
CPT/HCPCS: 36415; 80048; 80061; 80076; 83735; 84443

== ENCOUNTER → 2023-05-15 | Outpatient (CLI) | payer MEDICARE, SELFPAY ==
--- NOTE | 2023-05-15 13:06 | ECHODONC_ITS ---
Reason For Study: ANTINEOPLASTIC CHEMO Procedure This was a 2D Doppler, Color Flow transthoracic echocardiogram. Myocardial strain analysis was performed in this exam to aid in the assessment of cardiac function. Exam performed in department. Left Ventricle Normal LV size. Severe concentric left ventricular hypertrophy. The estimated ejection fraction is 40 %. There is mild to moderate global hypokinesis of the left ventricle. Right Ventricle Normal RV size. ICD or pacer leads identified within the right ventricle. Normal systolic function. Atria The left atrium is mildly enlarged. The right atrium is mildly enlarged. Mitral Valve Normal mitral valve. Mild (1+) eccentric mitral valve insufficiency. Tricuspid Valve Normal tricuspid valve. Mild (1+) tricuspid valve insufficiency. Pulmonary artery systolic pressure is 28 mmHg. Aortic Valve Trisinus/trileaflet aortic valve. Mild focal aortic valve calcification. Great Vessels Normal aortic root. The pulmonary artery is normal size. Normal inferior vena cava. Pericardium/Pleural No pericardial effusion. MMode/2D Measurements & Calculations LVIDd: 3.7 cm IVSd: 1.4 cm LVOT diam: 2.1 cm LVIDs: 2.8 cm LVPWd: 1.9 cm LVOT area: 3.4 cm2 RVDd: 3.6 cm FS: 24.0 % Ao root diam: 3.4 cm LAV(MOD-bp): 76.6 ml LVAd ap4: 32.5 cm2 LAV(MOD-bp) Indexed: 38.5 ml/m2 LVLd ap4: 8.7 cm LAV(MOD-sp2): 74.3 ml EDV(MOD-sp4): 99.6 ml LAV(MOD-sp4): 73.7 ml EDV(sp4-el): 102.6 ml LVAs ap4: 24.8 cm2 LVLs ap4: 8.1 cm ESV(MOD-sp4): 61.5 ml ESV(sp4-el): 64.4 ml EF(MOD-sp4): 38.2 % EF(sp4-el): 37.2 % SV(MOD-sp4): 38.0 ml SV(sp4-el): 38.2 ml LA A4 area: 24.1 cm2 LA dimension(2D): 4.7 cm RA A4 area: 26.5 cm2 TAPSE: 1.1 cm Time Measurements MV dec time: 0.20 sec Doppler Measurements & Calculations MV E max moriah: 63.6 cm/sec MV V2 max: 77.5 cm/sec Ao V2 max: 150.8 cm/sec MV max P.4 mmHg Ao max P.1 mmHg MV V2 mean: 39.5 cm/sec Ao V2 mean: 109.9 cm/sec MV mean P.78 mmHg Ao mean P.5 mmHg MV V2 VTI: 21.4 cm Ao V2 VTI: 32.3 cm AV (velocity ratio): 0.79 MVA(VTI): 4.1 cm2 BRIDGET(I,D): 2.7 cm2 BRIDGET(V,D): 2.6 cm2 LV V1 max: 116.8 cm/sec SV(LVOT): 87.4 ml PA V2 max: 77.7 cm/sec LV V1 max P.5 mmHg PA V2 mean: 58.3 cm/sec LV V1 mean P.3 mmHg LV V1 mean: 85.0 cm/sec LV V1 VTI: 25.7 cm TR max moriah: 247.1 cm/sec TR max P.4 mmHg ECHO/ONC Echo Complete Interpretation Summary Normal LV size. Severe concentric left ventricular hypertrophy. The estimated ejection fraction is 40 %. There is mild to moderate global hypokinesis of the left ventricle. ICD or pacer leads identified within the right ventricle. The left atrium is mildly enlarged. The right atrium is mildly enlarged. The global longitudinal strain = -10.3% (abnormal). Compared to previous study, the left ventricular systolic function is the same.. The global longitudinal strain has improved. Ordering Physician: Christ Ruiz Referring Physician: Christ Ruiz Performed By: Eleni Reynolds RCS
== END | disposition home or self-care (01) ==
LOC: CVS 13:05
PROVIDERS: PCP Nurse Practitioner Primary Care; Referring Provider Internal Medicine Cardiovascular Disease; Visit Provider Internal Medicine Cardiovascular Disease
DX: I34.0 Nonrheumatic mitral (valve) insufficiency (principal)
CPT/HCPCS: 93306; 93356

== ENCOUNTER → 2024-01-28 | Outpatient (CLI) | payer MEDICARE, SELFPAY ==
[2024-01-28 12:18] LABS: Absolute Lymphocyte Count 1.74 X10^3/uL (0.83-4.51); Basophil% 1.1 % (0-1); Eosinophil# 0.25 X10^3/uL; Eosinophils% 2.8 % (0-5); Hematocrit 40.9 % (40-54); Lymphocyte # 1.74 X10^3/ul (0.83-4.51); Lymphocyte % 19.1 % (19-41); Mean Corp Hgb Conc 31.8 g/dL (32-36); Mean Corpuscular Hgb 30.3 pg (27.0-32.0); Mean Corpuscular Volume 95.3 fL (80-94); Mean Platelet Vol. 10.3 fl (6.2-12.0); Monocyte# 0.98 X10^3/uL; Monocyte% 10.8 % (0-10); NRBC Flagged by Analyzer 0 % (0-5); Neutrophil # 5.98 X10^3/uL (2.7-7.7); Neutrophil % 65.8 % (47-70); Platelet Count 332 K/mm3 (150-450); RBC Distribution Width CV 12.6 % (11.6-14.6); RBC Distribution Width SD 44.1 fl (35.1-43.9); Red Blood Count 4.29 M/mm3 (4.6-6.2); White Blood Count 9.1 K/mm3 (4.4-11.0)
[2024-01-28 12:32] LABS: AST(SGOT) 23 U/L (15-37); Alanine Aminotransfer ALT/SGPT 24 U/L (16-61); Albumin, Serum 3.8 g/dL (3.2-5.0); Alkaline Phosphatase 165 U/L (45-117); Anion Gap 5 (5-15); BUN 27 mg/dL (7-18); Calcium,Total 9.7 mg/dL (8.5-10.1); Chloride 106 mmol/L (98-107); Creatinine, Serum 1.35 mg/dL (0.70-1.30); EST Glomerular Filtration Rate 54 mL/min (>60); Est Glom Filt Rate - Afr Amer 65 mL/min (>60); Globulin 3.8 g/dL (2.2-4.2); Glucose 94 mg/dL (74-106); Potassium 4.2 mmol/L (3.5-5.1); Protein, Total 7.6 g/dL (6.4-8.2); Sodium Level 137 mmol/L (136-145)
[2024-01-29 06:58] LABS: Cholesterol 121 mg/dL (200); High Density Lipoprotein 56 mg/dL; Triglycerides 62 mg/dL; Very Low Density Lipoprotein 12 mg/dL (5-40)
== END | disposition home or self-care (01) ==
PROVIDERS: PCP Family Medicine; Visit Provider Family Medicine
DX: I50.9 Heart failure, unspecified (principal); I48.91 Unspecified atrial fibrillation
CPT/HCPCS: 36415; 80053; 80061; 85025

== ENCOUNTER → 2024-08-06 | Outpatient (CLI) | payer MEDICARE, SELFPAY ==
[2024-08-06 15:39] LABS: PSA,Total - Annual Screen 2.13 ng/mL (0.00-4.00)
== END | disposition home or self-care (01) ==
LOC: MTLAB 10:54
PROVIDERS: PCP Family Medicine; Referring Provider Family Medicine; Visit Provider Family Medicine
DX: Z12.5 Encounter for screening for malignant neoplasm of prostate (principal)
CPT/HCPCS: 36415; 84153; G0103

== ENCOUNTER → 2024-10-28 | Outpatient (CLI) | payer MEDICARE, SELFPAY ==
--- NOTE | 2024-10-28 14:57 | ECHOCS_ITS ---
ECHO/Echo Complete W/ Contrast Interpretation Summary Normal LV size. The left ventricular ejection fraction is 40 %. Moderate concentric left ventricular hypertrophy. Aortic sclerosis, no stenosis. Apical sparing pattern noted. The global longitudinal strain is moderately abno rmal. Compared to previous study, the left ventricular systolic function is the same.. Ordering Physician: Christ Ruiz Referring Physician: Ramu Pelaez Performed By: Sadia Valenzuela RDCS, RVT
== END | disposition home or self-care (01) ==
LOC: CVS 14:56
PROVIDERS: PCP Family Medicine; Referring Provider Internal Medicine Cardiovascular Disease; Visit Provider Internal Medicine Cardiovascular Disease
DX: E85.4 Organ-limited amyloidosis (principal); I50.42 Chronic combined systolic (congestive) and diastolic (congestive) heart failure; I43 Cardiomyopathy in diseases classified elsewhere; I42.8 Other cardiomyopathies; I49.49 Other premature depolarization; I45.89 Other specified conduction disorders; Z95.810 Presence of automatic (implantable) cardiac defibrillator
CPT/HCPCS: 93306; Q9957; A4216; C8929

== ENCOUNTER 2025-01-17 17:00 | Outpatient (RCR) | payer MEDICARE, SELFPAY ==
--- NOTE | 2025-01-07 15:07 | HP.PTEVAL_ITS ---
Patient's Visit Information Visit Information Visit Information: LUIS FERNANDO MAE is a 84 year old M referred to Physical Therapy by Dr. Cleve Poole DO with a diagnosis of Abnormality of R LE. Date of Evaluation: 01/07/25 Physical Therapist: Trenton Bush, PT, ATC Visit Plan Frequency: 1x/Week Duration: 1 Week Plan: Issue and instruct pt on HEP of R hip ER stretching, IR strengthening, and core stab ex's. Subjective Subjective: Pt reports he has had difficulty with gait for a long time. pt notes he had R MARIUSZ performed many years ago. Pt reports as a result of his hip surgery, he has walked with his foot externally rotated which has given him difficulties at times. Pt notes he is here today because he would like some stretches to be able to perform to make his foot face forward again. Pt denies hip pain at this time. Pt reports he has not had any falls at this time unless he has missed a step. Pt reports he has good sensation in his LE's. Pt reports he is able to perform most of his IADL's without difficulty at this time. Pt is no in any pain today with the exfception of his R knee. Pain R knee pain: Pain Intensity (Out of 10): 0 Objective Objective: Neuro: B LE sensation is WNL to light touch. MMT: B LE's are equal when [id number] bilaterally. TU sec FGA: /30- No balance deficits. Goals Goal 1:: I with HEP after one visit Goal Time Frame: 1 Week Rehabilitation Potential Physical Therapy Diagnosis: Pt has an externally rotated R LE secondary to tight ER's and weak IR's Rehabilitation Potential: Excellent Anticipated Interventions Patient/Client Instruction: Educate patient on: Condition and Plan of Care For the Purpose of:: To improve self management Therapeutic Exercise to Include: Strength training, Flexibilty training and Dynamic Lumbar Stabilization For the Purpose of:: To increase ROM and To improve muscle performance and motor function Text: Thank you for the opportunity to evaluate your patient. For Medicare and Medicare HMO plans, please review the plan of care and approve it. It will need to be FAXED BACK to us at [phone] for Medicare purposes. For Medicare only, by signing this I certify the plan of care. Please let me know if there are questions or concerns regarding this plan of care. Physician Signature: Date:
--- NOTE | 2025-01-17 17:57 | HP.PTDCSUM_ITS ---
Discharge Summary D/C summary: It has been my pleasure to treat LUIS FERNANDO MAE referred by Dr. Cleve Poole DO, with the diagnosis of Abnormality of R LE for a total of 2 visit(s). Discharge Date: Please see the following information for a summary of their discharge status. Subjective Subjective: no pain today Pain R knee pain: Pain Intensity (Out of 10): 0 Objective Objective/Function: Pt is now I with HEP Goals Goal 1:: I with HEP after one visit Plan Plan: Discharge to HEP. D/C Information d/c sentence: If there are questions or concerns regarding this patient's physical therapy, jf ferrell feel free to call me at [phone]. Thank you for the referral of this patient. Sincerely, Trenton Bush, PT, ATC
== END 2025-01-17 19:00 | disposition home or self-care (01) ==
LOC: PT 17:00
PROVIDERS: PCP Family Medicine; Referring Provider Orthopaedic Surgery; Visit Provider Orthopaedic Surgery
DX: R26.9 Unspecified abnormalities of gait and mobility (principal)
CPT/HCPCS: 97110; 97161

== ENCOUNTER → 2025-03-02 | Outpatient (CLI) | payer MEDICARE, SELFPAY ==
--- NOTE | 2025-03-02 09:24 | RAD_ITS ---
PROCEDURE: RIBS XAVIER MIN 4V W/PA CHEST 03/02/2025 REASON FOR EXAM: FALL TECHNIQUE: Procedure Code: RADRIBB Modality: DX Procedure: RIBS XAVIER MIN 4V W/PA CHEST COMPARISON: October 22, 2020 FINDINGS: Findings: Biventricular AICD is in place. Heart is mildly enlarged. Lungs are clear. No pneumothorax or pleural effusion. Calcified granulomas in the right paratracheal and right hilar region. Other: Dedicated images of the ribs on the left and right show no fracture. Incidental note is made of a likely suture anchor involving the proximal right humerus. RAD/Ribs Xavier Min 4V w/PA Chest IMPRESSION: No fracture. Reading Location: [id number]
== END | disposition home or self-care (01) ==
LOC: MTRAD 09:22
PROVIDERS: PCP Family Medicine
DX: S20.211A Contusion of right front wall of thorax, initial encounter (principal); W17.89XA Other fall from one level to another, initial encounter
CPT/HCPCS: 71111

== ENCOUNTER 2025-03-14 09:00 | Outpatient (RCR) | payer MEDICARE, SELFPAY ==
[2025-03-10 09:49] VITALS: BP 139/74; PULSE 76; RESP 18; TEMP 35.9; BMI 26.5
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
--- NOTE | 2025-03-10 14:31 | WC ---
PHOTO-RLE 03/10/25
--- NOTE | 2025-03-10 14:38 | WC ---
PHOTO-LLE 03/10/25
[2025-03-14 08:58] VITALS: BP 106/65; PULSE 87; RESP 16; TEMP 36.3; BMI 26.5
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
--- NOTE | 2025-03-15 08:22 | WC ---
Dr. Etienne transfers care of this patient over to Dr. Joseph as of 03/10/25
--- NOTE | 2025-03-15 10:10 | WC ---
PHOTO-LEFT MED LEG 03/14/25
--- NOTE | 2025-03-15 10:13 | WC ---
PHOTO-RIGHT LAT LEG 03/14/28
== END 2025-03-15 23:59 | disposition home or self-care (01) ==
LOC: WC 09:00
PROVIDERS: PCP Family Medicine; Referring Provider Family Medicine; Visit Provider Surgery Plastic and Reconstructive Surgery
DX: L97.222 Non-pressure chronic ulcer of left calf with fat layer exposed (principal); L97.212 Non-pressure chronic ulcer of right calf with fat layer exposed; K74.60 Unspecified cirrhosis of liver; I48.91 Unspecified atrial fibrillation; I42.8 Other cardiomyopathies; Z82.49 Family history of ischemic heart disease and other diseases of the circulatory system; Z79.01 Long term (current) use of anticoagulants; Z86.16 Personal history of COVID-19; N18.9 Chronic kidney disease, unspecified; I87.2 Venous insufficiency (chronic) (peripheral); E78.5 Hyperlipidemia, unspecified; I25.10 Atherosclerotic heart disease of native coronary artery without angina pectoris; Z86.73 Personal history of transient ischemic attack (TIA), and cerebral infarction without residual deficits; I25.2 Old myocardial infarction; R60.0 Localized edema; Z95.5 Presence of coronary angioplasty implant and graft; Z95.810 Presence of automatic (implantable) cardiac defibrillator
CPT/HCPCS: 11042; 99213; G0463

== ENCOUNTER → 2025-04-07 | Outpatient (CLI) | payer MEDICARE, SELFPAY ==
[2025-04-07 15:10] LABS: Hematocrit 38.5 % (40-54); Hemoglobin 12.8 g/dL (13.0-16.5); Immature Granulocytes Count 0.030 X10^3/uL (0.0-0.0); Mean Corp Hgb Conc 33.2 g/dL (32-36); Mean Corpuscular Volume 93.4 fL (80-94); Mean Platelet Vol. 10.2 fl (6.2-12.0); NRBC Flagged by Analyzer 0 % (0-5); Platelet Count 315 K/mm3 (150-450); RBC Distribution Width CV 12.8 % (11.6-14.6); RBC Distribution Width SD 44.0 fl (35.1-43.9); Red Blood Count 4.12 M/mm3 (4.6-6.2); White Blood Count 9.7 K/mm3 (4.4-11.0)
[2025-04-07 16:10] LABS: Anion Gap 8 (5-15); BUN 20 mg/dL (4-19); BUN/Creat Ratio 13.1 RATIO (10-20); Calcium,Total 9.9 mg/dL (7.6-11.0); Carbon Dioxide 27.0 mmol/L (21.0-32.0); Chloride 104 mmol/L (98-108); Glucose 127 mg/dL (70-99); Magnesium 2.4 mg/dL (1.5-2.2); Potassium 4.6 mmol/L (3.3-5.1)
== END | disposition home or self-care (01) ==
LOC: LAB 14:31
PROVIDERS: PCP Family Medicine; Referring Provider Internal Medicine Cardiovascular Disease; Visit Provider Internal Medicine Cardiovascular Disease
DX: I42.8 Other cardiomyopathies (principal); Z95.810 Presence of automatic (implantable) cardiac defibrillator
CPT/HCPCS: 36415; 80048; 83735; 84443; 85025

== ENCOUNTER 2025-04-11 15:30 | Outpatient (RCR) | payer MEDICARE, SELFPAY ==
[2025-03-28 15:04] VITALS: BP 128/71; PULSE 76; RESP 16
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
--- NOTE | 2025-03-30 14:28 | WC ---
PHOTO-RLE 03/28/25
--- NOTE | 2025-03-30 14:30 | WC ---
PHOTO-LLE 03/28/25
[2025-04-11 15:30] VITALS: BP 118/91; PULSE 87; RESP 18; TEMP 36.1
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
== END 2025-04-15 23:59 | disposition home or self-care (01) ==
LOC: WC 15:30
PROVIDERS: PCP Family Medicine; Referring Provider Family Medicine; Visit Provider Surgery Plastic and Reconstructive Surgery
DX: L97.222 Non-pressure chronic ulcer of left calf with fat layer exposed (principal); L97.212 Non-pressure chronic ulcer of right calf with fat layer exposed; Z79.01 Long term (current) use of anticoagulants; Z86.73 Personal history of transient ischemic attack (TIA), and cerebral infarction without residual deficits; I25.2 Old myocardial infarction
CPT/HCPCS: 11042

== ENCOUNTER → 2025-04-14 | Outpatient (CLI) | payer MEDICARE, SELFPAY ==
--- NOTE | 2025-04-14 08:54 | ECHOD_ITS ---
Reason For Study ECHO/Echo Complete
== END | disposition home or self-care (01) ==
LOC: CVS 08:54
PROVIDERS: PCP Family Medicine; Referring Provider Internal Medicine Cardiovascular Disease; Visit Provider Internal Medicine Cardiovascular Disease
DX: I42.8 Other cardiomyopathies (principal)
CPT/HCPCS: 93306

== ENCOUNTER 2025-05-02 08:57 | Outpatient (RCR) | payer MEDICARE, SELFPAY ==
[2025-05-02 09:01] VITALS: BP 121/77; PULSE 874; RESP 18; TEMP 36.3
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
--- NOTE | 2025-05-03 09:03 | WC ---
PHOTO-LLE 05/02/25
== END 2025-05-02 14:54 | disposition home or self-care (01) ==
LOC: WC 08:57
PROVIDERS: PCP Family Medicine; Referring Provider Family Medicine; Visit Provider Surgery Plastic and Reconstructive Surgery
DX: L97.929 Non-pressure chronic ulcer of unspecified part of left lower leg with unspecified severity (principal); Z79.01 Long term (current) use of anticoagulants; Z86.73 Personal history of transient ischemic attack (TIA), and cerebral infarction without residual deficits; I25.2 Old myocardial infarction
CPT/HCPCS: 99212; G0463

== ENCOUNTER → 2025-05-10 | Outpatient (CLI) | payer MEDICARE, SELFPAY ==
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
== END | disposition home or self-care (01) ==
LOC: RAD 11:31
PROVIDERS: PCP Family Medicine; Referring Provider Nurse Practitioner Family; Visit Provider Nurse Practitioner Family
DX: S81.812A Laceration without foreign body, left lower leg, initial encounter (principal)
CPT/HCPCS: 73590

== ENCOUNTER 2025-05-11 10:31 | Observation (INO) | payer MEDICARE, SELFPAY ==
[2025-05-11 10:33] VITALS: BP 121/71; PULSE 86; RESP 16; TEMP 36.6; O2SAT 99
[2025-05-11 10:42] VITALS: BMI 27.6
--- NOTE | 2025-05-11 10:56 | ED.VIS.LOWEX ---
HPI History of Present Illness Chief Complaint: Lower Extremity Injury Detail of Chief Complaint: Left leg pain and swelling Informant: patient Narrative Narrative: Patient presents with left leg pain and swelling from a fall that occurred 2 nights ago. Patient sustained a small laceration to the left lateral calf and was seen at urgent care and headed taped and dressing applied. Had a x-rays as an outpatient done recently but no results obtained per patient and . Now having a lot more pain and swelling and having a hard time walking secondary to the pain. He is on Eliquis for history of A-fib. [facility] Medical History Cirrhosis of liver Edema of left lower extremity Cellulitis of left leg Difficulty with speech TIA (transient ischemic attack) History of ST elevation myocardial infarction (STEMI) (09/20/20) Suspected cerebrovascular accident (CVA) Syncope (03/15/21) Ascites Umbilical hernia Constipation Abdominal pain Diastasis of rectus abdominis Calculus of left kidney Gallbladder calculus Chronic abdominal pain Chronic neck pain Chronic kidney failure Contact dermatitis Typical atrial flutter Ventricular fibrillation and flutter (09/20/20) Acute kidney injury superimposed on chronic kidney disease Multiple premature ventricular complexes COVID-19 virus detected (06/20/20) Dysfunction of left eustachian tube Cardiac amyloidosis Atrial tachycardia, paroxysmal Paroxysmal atrial fibrillation Atherosclerosis of coronary artery of [place] heart without angina pectoris Chronic combined systolic and diastolic CHF (congestive heart failure) Diastolic dysfunction, left ventricle Nonischemic cardiomyopathy Chronic systolic (congestive) heart failure History of basal cell cancer Atrioventricular node dysfunction Arthritis Obesity Vertigo Hyperlipidemia Home Medications ?Medication ?Instructions ?Recorded ?Last Taken ?Type tafamidis 61 mg capsule (Vyndamax) 61 mg PO DAILY amyloidosis 10/05/20 05/10/25 History atorvastatin 40 mg tablet See Rx Instructions .Route 11/17/24 05/10/25 Rx .COMPLEX #90 tabs spironolactone 25 mg tablet See Rx Instructions .Route 11/17/24 05/10/25 Rx .COMPLEX #90 tabs apixaban 5 mg tablet 5 mg PO BID #180 tabs 03/15/25 05/10/25 Rx acetaminophen 500 mg capsule 1,000 mg PO Q6H PRN fever or pain 05/11/25 05/11/25 History Allergy/AdvReac Type Severity Reaction Status Date / Time aspirin AdvReac Swelling Verified 05/11/25 10:35 ciprofloxacin AdvReac swelling Verified 05/11/25 10:35 metoprolol AdvReac weakness Verified 05/11/25 10:35 and collapse Penicillins AdvReac Swelling Verified 05/11/25 10:35 Cktnnwm-PFP-NhZ Reductase AdvReac myalgia Verified 05/11/25 10:35 Inhibitor (Iaobtqt-Ypr-Ntv Reductase Inhibitor) Sulfa (Sulfonamide AdvReac swelling Verified 05/11/25 10:35 Antibiotics) Family History Father Cancer bone Sister Hypertension Mother Diabetes Hypertension Surgical History History of hand surgery H/O percutaneous transluminal coronary angioplasty (09/20/20) Biventricular ICD (implantable cardioverter-defibrillator) in place (05/04/19) History of left heart catheterization (09/22/20) 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) S/P cryoablation of arrhythmia (10/21/16) History of cardioversion (10/20/20) Hx of tonsillectomy H/O elbow surgery H/O nasal septoplasty H/O repair of right rotator cuff H/O knee surgery Left AC Seperation Repair Presence of tooth-root and mandibular implants Social History Smoking Status: Never smoker alcohol intake: never caffeine: Yes what type of physical activity do you participate in: walking and bicycling frequency: daily ROS ROS ED Review of Systems ROS Unobtainable: other Constitutional Constitutional ED: Reports lethargy; Denies chills, fever(s), sweats or weight loss Eyes Eyes: Denies blurry vision, change in vision or diplopia ENT ENT ED: Denies rhinorrhea or sore throat Cardiovascular Cardiovascular: Denies chest pain, orthopnea or racing heartbeat Respiratory/Chest Respiratory/Chest: Denies cough, dyspnea, dyspnea on exertion, orthopnea or sputum Gastrointestinal Gastrointestinal: Denies abdominal pain, diarrhea, nausea or vomiting Genitourinary Genitourinary ED: Denies dysuria, hematuria or urinary frequency Musculoskeletal Musculoskeletal: Reports other Details: Left leg pain and swelling ; Denies arthralgias, back pain, myalgias or neck pain Integumentary Denies abscess, Abrasions or rash Neurologic Neurologic: Denies headache(s) or weakness Psychiatric Psychiatric: Denies anxiety, depression or suicidal thoughts Endocrine Endocrinology: Denies polydipsia, polyphagia or polyuria Hematologic/Lymphatic Hematologic/Lymphatic: Denies easy bleeding, easy bruising or lymphadenopathy Allergic/Immunologic Allergic/Immunologic ED: Denies mouth swelling, tongue swelling or urticaria EXAM Physical Exam Const Vital Signs: 05/11/25 10:33 05/11/25 12:32 Temperature 97.9 F Temperature Source Oral Pulse Rate 86 60 Respiratory Rate 16 16 Blood Pressure 121/71 H 127/67 H Blood Pressure Mean 87 87 Pulse Ox 99 100 Oxygen Delivery Method Room Air Positive well nourished and well developed General Appearance ED: well developed and NAD HEENT Reports TM's clear and moist mucous membranes normocephalic and atraumatic; Negative for trauma or tenderness Tympanic Membrane ED: Yes TM's clear Eyes PERRL and EOMs intact bilaterally General Eye ED: Negative for pale conjunctiva or scleral icterus Neck no lymphadenopathy, supple and no JVD General: Negative for tenderness Chest Wall inspection of chest normal and palpation of chest normal Chest: Negative for tenderness Resp normal respiratory effort and clear to auscultation bilaterally Effort and Inspection: Negative for respiratory distress or pain with movement Auscultation: Negative for rhonchi, wheezes or diminished lung sounds Cardio regular rate, regular rhythm, S1 normal heart sound, S2 normal heart sound and no murmurs Peripheral Pulses: pulses 2+ throughout GI normal to inspection, nondistended, normoactive bowel sounds, soft to palpation, non-tender, non-distended and no masses Back/Spine no CVA tenderness and no thoracic nor lumbar tenderness Extremity Extremity Narrative: Left leg-patient has large hematoma left lateral calf that is tight. Healing 8 cm laceration noted. Neurovascularly intact distally with normal cap refill and normal sensation. Able to move his toes and ankle without difficulty. General Extremety ED: Negative for edema General Extremity: Negative for edema Neuro oriented x3, CN's II-XII intact bilaterally, no sensory deficits noted and gait normal Sensorium / Orientation: awake, alert, oriented to person, oriented to place and oriented to time Motor Exam: strength 5/5 throughout and strength abnormal Psych mental status grossly normal Skin no rashes or lesions noted and no wounds MDM MDM MDM Narrative Medical decision making narrative: Patient presents with a large hematoma to the left lower extremity on Eliquis. Complaining of severe pain and difficulty ambulating. She is discussed with orthopedics however surgeon was in the OR and patient needed to await evaluation by Ortho. Dr. Brown saw patient in the emergency department. While awaiting evaluation by Ortho the hematoma spontaneously erupted and large amount of blood drained from the wound. Dr. Brown would like to have patient admitted. He has that we discussed case with hospitalist to evaluate for admission. IV Hep-Lock ordered as well as CBC and BMP which are pending. Patient will require wound management. Currently do not feel he has compartment syndrome. Discharge Plan Dx/Rx/DC Orders Clinical Impression: Hematoma of left lower leg, Difficulty in walking, Visit for wound care, Personal history of atrial fibrillation, Chronic anticoagulation Disposition Disposition: Acute Care Hospital [facility]
--- NOTE | 2025-05-11 12:22 | ED.RN ---
PT STOOD TO URINATE. LOWER HEMANGIOMA OPENED . APPROX 200 CC BLOOD ON FLOOR. PRESSURE APPLIED. DR PERALTA. WOUND WRAPPED. AWAITING DR NAVAS
[2025-05-11 12:32] VITALS: BP 127/67; PULSE 60; RESP 16; O2SAT 100
--- NOTE | 2025-05-11 13:15 | CONS.ORTHO ---
HPI Consult Data Date of Consult: 05/11/25 HPI Narrative HPI Narrative: LUIS FERNANDO MAE, is a 84 M who presents with a left calf hematoma. He bumped his leg 2 days ago. Takes Eliquis for past history of a stroke. Here in the emergency department with his . Just upped his Eliquis this morning. Its progressively more swollen and he there was a laceration that he saw on a walk-in clinic for they put some butterfly Steri-Strips on that but now its gotten progressively more swollen and it actually split open in the emergency department an hour before I saw him I put a trauma dressing on that. No concerns of progressive esw-yi-decapur pain no concerns with decreased sensation or motor function in the foot. Had a past history remotely of a left total knee arthroplasty. He still able to get up and walk around. [facility] Medical History Cirrhosis of liver Edema of left lower extremity Cellulitis of left leg Difficulty with speech TIA (transient ischemic attack) History of ST elevation myocardial infarction (STEMI) (09/20/20) Suspected cerebrovascular accident (CVA) Syncope (03/15/21) Ascites Umbilical hernia Constipation Abdominal pain Diastasis of rectus abdominis Calculus of left kidney Gallbladder calculus Chronic abdominal pain Chronic neck pain Chronic kidney failure Contact dermatitis Typical atrial flutter Ventricular fibrillation and flutter (09/20/20) Acute kidney injury superimposed on chronic kidney disease Multiple premature ventricular complexes COVID-19 virus detected (06/20/20) Dysfunction of left eustachian tube Cardiac amyloidosis Atrial tachycardia, paroxysmal Paroxysmal atrial fibrillation Atherosclerosis of coronary artery of [place] heart without angina pectoris Chronic combined systolic and diastolic CHF (congestive heart failure) Diastolic dysfunction, left ventricle Nonischemic cardiomyopathy Chronic systolic (congestive) heart failure History of basal cell cancer Atrioventricular node dysfunction Arthritis Obesity Vertigo Hyperlipidemia Home Medications ?Medication ?Instructions ?Recorded ?Last Taken ?Type tafamidis 61 mg capsule (Vyndamax) 61 mg PO DAILY amyloidosis 10/05/20 05/10/25 History atorvastatin 40 mg tablet See Rx Instructions .Route 11/17/24 05/10/25 Rx .COMPLEX #90 tabs spironolactone 25 mg tablet See Rx Instructions .Route 11/17/24 05/10/25 Rx .COMPLEX #90 tabs apixaban 5 mg tablet 5 mg PO BID #180 tabs 03/15/25 05/10/25 Rx acetaminophen 500 mg capsule 1,000 mg PO Q6H PRN fever or pain 05/11/25 05/11/25 History Allergy/AdvReac Type Severity Reaction Status Date / Time aspirin AdvReac Swelling Verified 05/11/25 10:35 ciprofloxacin AdvReac swelling Verified 05/11/25 10:35 metoprolol AdvReac weakness Verified 05/11/25 10:35 and collapse Penicillins AdvReac Swelling Verified 05/11/25 10:35 Mmhzxvd-MGK-JcY Reductase AdvReac myalgia Verified 05/11/25 10:35 Inhibitor (Kucpjag-Qrn-Jkl Reductase Inhibitor) Sulfa (Sulfonamide AdvReac swelling Verified 05/11/25 10:35 Antibiotics) Family History Father Cancer bone Sister Hypertension Mother Diabetes Hypertension Surgical History History of hand surgery H/O percutaneous transluminal coronary angioplasty (09/20/20) Biventricular ICD (implantable cardioverter-defibrillator) in place (05/04/19) History of left heart catheterization (09/22/20) 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) S/P cryoablation of arrhythmia (10/21/16) History of cardioversion (10/20/20) Hx of tonsillectomy H/O elbow surgery H/O nasal septoplasty H/O repair of right rotator cuff H/O knee surgery Left AC Seperation Repair Presence of tooth-root and mandibular implants Social History Smoking Status: Never smoker alcohol intake: never caffeine: Yes what type of physical activity do you participate in: walking and bicycling frequency: daily Vital Signs Vital Signs Vital Signs: 05/11/25 10:33 05/11/25 12:32 Temperature 97.9 F Temperature Source Oral Pulse Rate 86 60 Respiratory Rate 16 16 Blood Pressure 121/71 H 127/67 H Blood Pressure Mean 87 87 Pulse Ox 99 100 Oxygen Delivery Method Room Air Weight Weight: 192 lb 10.944 oz Body Mass Index (BMI) 27.6 Physical Exam Const alert, oriented x3, no apparent distress and well nourished Extremity Extremity Narrative: Left LE: Foot is warm and well-perfused strong pedal pulses normal sensation for the foot able to wiggle the toes dorsiflex and plantarflex the foot. No pain with passive stretch of the toes or the ankle. His calf is soft but there is a large hematoma anterolaterally about the proximal tibialis anterior and lateral compartment. There is a transverse laceration just below the knee as well as a vertical new area that just split open. The muscle below is visible, and largely gapping. It is quite swollen. The length of the vertical open area is about 3 inches long and the area of the transverse laceration is about 2 inches it is well opposed. The total knee incision is well-healed without complication able to lift the leg up straight and do his normal straight leg raise test. Imaging X-rays of the tibia and fibula revealed no acute abnormalities with normally fixated total knee arthroplasty Assessment & Plan Assessment/Plan (1) Hematoma of left lower leg: PLAN: 84-year-old man with a left calf hematoma that has gotten worse over the last 2 days, and not split open vertically. He has stopped his Eliquis I will recommend he stay off that for now. No signs of compartment syndrome no signs of an infection. This new area of the just split open in the last hours it is too gapping and swollen to get closed. No pulsatile bleeding. That we will have to wait to come down before the closure is attempted. The other option would be a vacuum dressing but given that he is on blood thinners right now with active bleeding that may not be the best idea today. I think for now dressing changes admission to the hospital monitor this for the next 1 to 3 days and see if we get this closed primarily if not the plan would be to put a vacuum dressing once the blood thinners are completely out of his system to try to get this eventually closed. I explained that to him and his no further questions we will have the hospitalist admit and I also asked Dr. Joseph plastic surgeon to see and assess for his opinion as well. May consider prophylactic antibiotics as well with the open wound. Also asked ED to consult wound care.
[2025-05-11 13:24] LABS: Hematocrit 33.3 % (40-54); Hemoglobin 10.7 g/dL (13.0-16.5); Immature Granulocytes Count 0.060 X10^3/uL (0.0-0.0); Mean Corp Hgb Conc 32.1 g/dL (32-36); Mean Corpuscular Volume 95.1 fL (80-94); Mean Platelet Vol. 10.3 fl (6.2-12.0); NRBC Flagged by Analyzer 0 % (0-5); Platelet Count 269 K/mm3 (150-450); RBC Distribution Width CV 13.2 % (11.6-14.6); RBC Distribution Width SD 46.0 fl (35.1-43.9); Red Blood Count 3.50 M/mm3 (4.6-6.2); White Blood Count 10.4 K/mm3 (4.4-11.0)
[2025-05-11 13:33] LABS: Prothrombin Time (Protime)PT. 19.9 SECONDS (11.7-14.9)
[2025-05-11 13:34] LABS: Partial Thromboplast Time 33.8 Seconds (24.1-36.2)
[2025-05-11 13:43] LABS: Anion Gap 8 (5-15); BUN 19 mg/dL (4-19); BUN/Creat Ratio 13.5 RATIO (10-20); Calcium,Total 9.0 mg/dL (7.6-11.0); Carbon Dioxide 24.6 mmol/L (21.0-32.0); Chloride 106 mmol/L (98-108); Estimated Creatinine Clearance 41.28 ml/min (50-250); Glucose 108 mg/dL (70-99); Potassium 4.6 mmol/L (3.3-5.1)
[2025-05-11 13:50] VITALS: BP 127/61; BP 127/67; PULSE 60; PULSE 62; RESP 16; RESP 18; TEMP 36.5; TEMP 36.6; O2SAT 100
--- NOTE | 2025-05-11 13:51 | PCM.HP.STD ---
HPI - General General Date of Admission: 05/11/25 HPI Narrative LUIS FERNANDO MAE, is a 84 M who presents to the hospital because of leg pain. He hit his left leg in a fall 2 nights ago and he developed a hematoma as he is on Eliquis for A-fib. He went to urgent care and they Steri-Stripped the wound and got x-rays which did not show any fracture in his left lower extremity. He presented to the hospital because of significant pain with this though no signs of infection as he remains afebrile without leukocytosis. His hemoglobin is 10.7. Orthopedic surgery was consulted in the emergency room did not feel like he had compartment syndrome and while in the emergency room the wound opened and evacuated approximately 200 cc of blood clot. He has been refusing pain medicines in the emergency room. [facility] Medical History Cirrhosis of liver Edema of left lower extremity Cellulitis of left leg Difficulty with speech TIA (transient ischemic attack) History of ST elevation myocardial infarction (STEMI) (09/20/20) Suspected cerebrovascular accident (CVA) Syncope (03/15/21) Ascites Umbilical hernia Constipation Abdominal pain Diastasis of rectus abdominis Calculus of left kidney Gallbladder calculus Chronic abdominal pain Chronic neck pain Chronic kidney failure Contact dermatitis Typical atrial flutter Ventricular fibrillation and flutter (09/20/20) Acute kidney injury superimposed on chronic kidney disease Multiple premature ventricular complexes COVID-19 virus detected (06/20/20) Dysfunction of left eustachian tube Cardiac amyloidosis Atrial tachycardia, paroxysmal Paroxysmal atrial fibrillation Atherosclerosis of coronary artery of [place] heart without angina pectoris Chronic combined systolic and diastolic CHF (congestive heart failure) Diastolic dysfunction, left ventricle Nonischemic cardiomyopathy Chronic systolic (congestive) heart failure History of basal cell cancer Atrioventricular node dysfunction Arthritis Obesity Vertigo Hyperlipidemia Home Medications ?Medication ?Instructions ?Recorded ?Last Taken ?Type tafamidis 61 mg capsule (Vyndamax) 61 mg PO DAILY amyloidosis 10/05/20 05/10/25 History atorvastatin 40 mg tablet See Rx Instructions .Route 11/17/24 05/10/25 Rx .COMPLEX #90 tabs spironolactone 25 mg tablet See Rx Instructions .Route 11/17/24 05/10/25 Rx .COMPLEX #90 tabs apixaban 5 mg tablet 5 mg PO BID #180 tabs 03/15/25 05/10/25 Rx acetaminophen 500 mg capsule 1,000 mg PO Q6H PRN fever or pain 05/11/25 05/11/25 History Allergy/AdvReac Type Severity Reaction Status Date / Time aspirin AdvReac Swelling Verified 05/11/25 10:35 ciprofloxacin AdvReac swelling Verified 05/11/25 10:35 metoprolol AdvReac weakness Verified 05/11/25 10:35 and collapse Penicillins AdvReac Swelling Verified 05/11/25 10:35 Ugimmpt-ZCJ-AyK Reductase AdvReac myalgia Verified 05/11/25 10:35 Inhibitor (Mzetwar-Tqu-Hmy Reductase Inhibitor) Sulfa (Sulfonamide AdvReac swelling Verified 05/11/25 10:35 Antibiotics) Family History Father Cancer bone Sister Hypertension Mother Diabetes Hypertension Surgical History History of hand surgery H/O percutaneous transluminal coronary angioplasty (09/20/20) Biventricular ICD (implantable cardioverter-defibrillator) in place (05/04/19) History of left heart catheterization (09/22/20) 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) S/P cryoablation of arrhythmia (10/21/16) History of cardioversion (10/20/20) Hx of tonsillectomy H/O elbow surgery H/O nasal septoplasty H/O repair of right rotator cuff H/O knee surgery Left AC Seperation Repair Presence of tooth-root and mandibular implants Social History Smoking Status: Never smoker alcohol intake: never caffeine: Yes what type of physical activity do you participate in: walking and bicycling frequency: daily ROS Constitutional Constitutional: Denies chills, fatigue, fever(s) or malaise Eyes Eyes: Denies blurry vision ENT HEENT: Denies headache(s) or nasal discharge Cardiovascular Cardiovascular: Denies chest pain, dyspnea on exertion or syncope Respiratory/Chest Respiratory/Chest: Denies cough, shortness of breath at rest or shortness of breath with exertion Gastrointestinal Gastrointestinal: Denies constipation, diarrhea, nausea or vomiting Genitourinary Genitourinary: Denies dysuria Musculoskeletal Musculoskeletal: Reports other Details: Leg pain with hematoma on the left calf Neurologic Neurologic: Denies focal weakness, numbness or tremor(s) Psychiatric Psychiatric: Denies anxiety or depression Vital Signs Vital Signs Vital Signs: 05/11/25 10:33 05/11/25 12:32 05/11/25 13:50 Temperature 97.9 F 98 F Temperature Source Oral Pulse Rate 86 60 60 Respiratory Rate 16 16 16 Blood Pressure 121/71 H 127/67 H 127/67 H Blood Pressure Mean 87 87 87 Pulse Ox 99 100 100 Oxygen Delivery Method Room Air Weight Weight: 192 lb 10.944 oz Body Mass Index (BMI) 27.6 Physical Exam Narrative General: Alert, Oriented x3, Cooperative, No apparent distress HEENT: Atraumatic, PERRLA, EOMI, Normocephalic Oral: Moist Mucosa Neck: Supple, No JVD Lungs: Clear to auscultation, Normal air movement, No rhonchi, No wheeze, No rales Cardiovascular: Regular rate, Regular Rhythm, Normal S1, Normal S2, No murmurs Abdomen: Soft, Non Tender, Non-Distended, No Hepato-splenomegaly Extremities: No edema, Capillary Refill Less than 3 Seconds Skin: Left calf hematoma that ruptured in the ER with improvement in pain Musculoskeletal: No Tenderness to Palpation of Joints or Extremities Neurological: No focal neurological deficits, moves all extremities Psych/Mental Status: Normal Affect, Appropriate Results Lab / Micro Data 05/11/25 13:15 05/11/25 13:15 Labs: Laboratory Results - last 24 hr 05/11/25 13:15: WBC 10.4, RBC 3.50 L, Hgb 10.7 L, Hct 33.3 L, MCV 95.1 H, MCH 30.6, MCHC 32.1, RDW Std Deviation 46.0 H, RDW Coeff of Karyna 13.2, Plt Count 269, MPV 10.3, Immature Gran % (Auto) 0.600, Neut % (Auto) 77.1 H, Lymph % (Auto) 10.2 L, [place] % (Auto) 10.8 H, Eos % (Auto) 0.6, Baso % (Auto) 0.7, Absolute Neuts (auto) 8.0 H, Absolute Lymphs (auto) 1.06, Nucleated RBC % 0, PT 19.9 H, INR 1.7, APTT 33.8, Sodium 139, Potassium 4.6, Chloride 106, Carbon Dioxide 24.6, Anion Gap 8, BUN 19, Creatinine 1.40 H, Estim Creat Clear Calc 41.28 L, Est GFR (MDRD) Non-Af 50 L, BUN/Creatinine Ratio 13.5, Glucose 108 H, Calcium 9.0 Assessment & Plan Assessment/Plan (1) Hematoma of left lower leg: PLAN: Plan 1. Left leg hematoma with pain with ambulation ? No fracture from outside urgent care ? Will consult plastic surgery to determine possible wound debridement evacuation and treatment ? Will consult wound care ? He did not take his Eliquis last evening or this morning 2. Paroxysmal A-fib/chronic combined systolic and diastolic CHF likely due to amyloidosis/HLD ? Will hold his Eliquis ? Continue with Aldactone ? He can continue to take tafamidis but if he can bring it from home ? Continue with Lipitor DVT: Ambulation given the hematoma 75 minutes was spent on direct patient care, including documentation as well as chart review and collaboration with colleagues Charges/Coding Visit Charges Inpatient E&M: 45841 Init Hosp L3
[2025-05-11 14:14] VITALS: BP 122/67; PULSE 60; RESP 18; TEMP 36.5; O2SAT 100
--- NOTE | 2025-05-11 14:19 | WOUNDNOTE ---
wound photo: left lower leg
--- NOTE | 2025-05-11 14:20 | WOUNDNOTE ---
wound photo: left lower leg
[2025-05-11 14:24] VITALS: BMI 26.9
--- NOTE | 2025-05-11 14:33 | WOUNDNOTE ---
Dr Brown had assessed the hematoma in the ED. had suggested possible wound VAC in the next day or 2. the skin is too fragile to place wound VAC and the hematoma would need to be evacuated and bleeding controlled before a wound VAC would be considered. placed a dry padded dressing with compression to assist in controlling the oozing. will monitor.
--- NOTE | 2025-05-11 16:31 | CON.PCM.SX_ITS ---
Assessment & Plan Assessment/Plan (1) Hematoma of left lower leg: PLAN: Given the patient was actively bleeding (oozing from the base of the wound at the time of the consultation) and there was tightness of the surrounding skin, bedside evacuation of hematoma was performed emergently. Patient gave verbal consent and was given morphine by the nursing staff. All parties were in agreement with the treatment plan. Procedure performed: Left leg hematoma evacuation Details about procedure: Manual evacuation was performed of the hematoma with fingertip dissection throughout the cavity on the left lateral leg and anterior leg which immediately relieved some of the pressure on the skin. Approximately 400 cc of clot was removed. There was active bleeding at the base of the wound through a an arterial bleed in the subcutaneous tissue over the lateral compartment. A 3-0 Vicryl was used to perform a vxrseg-eg-jlckz tie over the actively bleeding vessel which stopped the bleeding. The wound was then irrigated with 500 cc of normal saline to evacuate any further clotting. There was minimal bleeding at this point. The wound was then packed with saline soaked gauze, and Kerlix and Sonny wrap was applied for slight compression. Postoperative plan Discussed with patient weightbearing as tolerated status (and discussed with nursing). Okay to ambulate the halls. Recommended that the patient immediately let nursing staff know if the dressing feels too tight or if there is any changes in his sensation to the left leg. Plan for twice daily wet-to-dry dressings to the left lower extremity wound, with anticipated debridement of any nonviable tissue and skin in the operating room on 18 May 2025 (as an outpatient). Anticipate VAC placement at that time (we will order home wound VAC). He will eventually likely need a skin graft as some of the skin will secondary to the tension from the hematoma, but we will let it demarcate over the next several days so is not to excised viable skin and the debridement. Patient and his happy with the plan. I will see the patient in the morning to make sure that there is no further bleeding. HPI Consult Data Date of Consult: 05/11/25 HPI Narrative HPI Narrative: LUIS FERNANDO MAE is an 84-year-old male with past medical history of chronic kidney disease, cirrhosis, CVA, STEMI (has an implantable cardiac defibrillator), TIAs, and atrial fibrillation (on chronic anticoagulation with Eliquis) for whom plastic surgery is being consulted by orthopedic surgery with regards to a left leg hematoma. Patient fell 2 days ago on the left leg while in the shower. He suffered a laceration on the anterior of the proximal left leg and was sutured by the emergency department. X-rays (I reviewed and orthopedics reviewed) were negative for any acute fracture or malalignment (he does have a prosthetic knee on the left). He was sent home but he unfortunately developed a large hematoma underneath the skin of his left leg, the pressure of which opened up another laceration on the lateral aspect of his leg (which is new today). He was admitted by orthopedics/medicine and his Eliquis was discontinued for the time being. They asked that I take a look at the leg to see if there is any surgical intervention that could be performed. Before the consultation, patient ate lunch. Patient denies having any exquisite pain in the left leg [facility] Medical History Cirrhosis of liver Edema of left lower extremity Cellulitis of left leg Difficulty with speech TIA (transient ischemic attack) History of ST elevation myocardial infarction (STEMI) (09/20/20) Suspected cerebrovascular accident (CVA) Syncope (03/15/21) Ascites Umbilical hernia Constipation Abdominal pain Diastasis of rectus abdominis Calculus of left kidney Gallbladder calculus Chronic abdominal pain Chronic neck pain Chronic kidney failure Contact dermatitis Typical atrial flutter Ventricular fibrillation and flutter (09/20/20) Acute kidney injury superimposed on chronic kidney disease Multiple premature ventricular complexes COVID-19 virus detected (06/20/20) Dysfunction of left eustachian tube Cardiac amyloidosis Atrial tachycardia, paroxysmal Paroxysmal atrial fibrillation Atherosclerosis of coronary artery of [place] heart without angina pectoris Chronic combined systolic and diastolic CHF (congestive heart failure) Diastolic dysfunction, left ventricle Nonischemic cardiomyopathy Chronic systolic (congestive) heart failure History of basal cell cancer Atrioventricular node dysfunction Arthritis Obesity Vertigo Hyperlipidemia Home Medications ?Medication ?Instructions ?Recorded ?Last Taken ?Type tafamidis 61 mg capsule (Vyndamax) 61 mg PO DAILY amyl oidosis 10/05/20 05/10/25 History atorvastatin 40 mg tablet See Rx Instructions .Route 0 11/17/24 05/10/25 Rx .COMPLEX #90 tabs spironolactone 25 mg tablet See Rx Instructions .Route 11/17/24 05/10/25 Rx .COMPLEX #90 tabs apixaban 5 mg tablet 5 mg PO BID #180 tabs 05/10/25 Rx acetaminophen 500 mg capsule 1,000 mg PO Q6H PRN fever or pain 05/11/25 05/11/25 History Allergy/AdvReac Type Severity Reaction Status Date / Time aspirin AdvReac Swelling Verified 05/11/25 10:35 ciprofloxacin AdvReac swelling Verified 05/11/25 10:35 metoprolol AdvReac weakness Verified 05/11/25 10:35 and collapse Penicillins AdvReac Swelling Verified 05/11/25 10:35 Crzqoum-GBX-VoE Reductase AdvReac myalgia Verified 05/11/25 10:35 Inhibitor (Bugtdeq-Xjh-Mgb Reductase Inhibitor) Sulfa (Sulfonamide AdvReac swelling Verified 05/11/25 10:35 Antibiotics) Family History Father Cancer bone Sister Hypertension Mother Diabetes Hypertension Surgical History History of hand surgery H/O percutaneous transluminal coronary angioplasty (09/20/20) Biventricular ICD (implantable cardioverter-defibrillator) in place (05/04/19) History of left heart catheterization (09/22/20) 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) S/P cryoablation of arrhythmia (10/21/16) History of cardioversion (10/20/20) Hx of tonsillectomy H/O elbow surgery H/O nasal septoplasty H/O repair of right rotator cuff H/O knee surgery Left AC Seperation Repair Presence of tooth-root and mandibular implants Social History Smoking Status: Never smoker alcohol intake: never caffeine: Yes what type of physical activity do you participate in: walking and bicycling frequency: daily Physical Exam Narrative Left lower extremity Inspection: 5 cm closed laceration on the proximal aspect of the left anterior leg with significant swelling and pressure of the surrounding skin. Very large hematoma with laceration now on the lateral aspect of the leg over the lateral compartment, continuous with the swelling and undermining beneath the laceration. Active bleeding Palpation: Compartments are all soft in the leg. The skin around the lacerations is tight and tense and compromised secondary to the expanding hematoma. Motor: Patient has 5 out of 5 plantarflexion and dorsiflexion, as well as 5 out of 5 eversion and inversion of the foot. Sensory: Sensation to light touch intact in the ankle and the foot (patient reports no changes in sensation) Vascular: 2+ dorsalis pedis pulse and 2+ posterior tibial pulse by exam today. The foot is warm and well-perfused. Lab / Micro Data 05/11/25 13:15 05/11/25 13:15 Labs: Laboratory Results - last 24 hr 05/11/25 13:15: WBC 10.4, RBC 3.50 L, Hgb 10.7 L, Hct 33.3 L, MCV 95.1 H, MCH 30.6, MCHC 32.1, RDW Std Deviation 46.0 H, RDW Coeff of Karyna 13.2, Plt Count 269, MPV 10.3, Immature Gran % (Auto) 0.600, Neut % (Auto) 77.1 H, Lymph % (Auto) 10.2 L, [place] % (Auto) 10.8 H, Eos % (Auto) 0.6, Baso % (Auto) 0.7, Absolute Neuts (auto) 8.0 H, Absolute Lymphs (auto) 1.06, Nucleated RBC % 0, PT 19.9 H, INR 1.7, APTT 33.8, Sodium 139, Potassium 4.6, Chloride 106, Carbon Dioxide 24.6, Anion Gap 8, BUN 19, Creatinine 1.40 H, Estim Creat Clear Calc 41.28 L, E st GFR (MDRD) Non-Af 50 L, BUN/Creatinine Ratio 13.5, Glucose 108 H, Calcium 9.0
[2025-05-11 18:31] VITALS: BP 105/58; PULSE 60; RESP 15; TEMP 36.6; O2SAT 98
[2025-05-11 23:00] VITALS: BP 105/55; PULSE 63; RESP 16; TEMP 36.5; O2SAT 100
[2025-05-12 05:00] VITALS: BP 105/59; PULSE 60; RESP 16; TEMP 37.2; O2SAT 99
[2025-05-12 06:16] LABS: Hematocrit 26.5 % (40-54); Hemoglobin 8.7 g/dL (13.0-16.5); Immature Granulocytes Count 0.050 X10^3/uL (0.0-0.0); Mean Corp Hgb Conc 32.8 g/dL (32-36); Mean Corpuscular Volume 93.6 fL (80-94); Mean Platelet Vol. 10.2 fl (6.2-12.0); NRBC Flagged by Analyzer 0 % (0-5); POSITIVE DIFFERENTIAL YES; Platelet Count 250 K/mm3 (150-450); RBC Distribution Width CV 13.2 % (11.6-14.6); RBC Distribution Width SD 45.0 fl (35.1-43.9); Red Blood Count 2.83 M/mm3 (4.6-6.2); White Blood Count 13.0 K/mm3 (4.4-11.0)
[2025-05-12 06:20] LABS: Differential Indicated SCAN CRITERIA MET
[2025-05-12 06:51] LABS: Acanthocytes RARE; Anisocytosis 1+; Crenated RBC 1+
[2025-05-12 06:53] LABS: Anion Gap 9 (5-15); BUN 24 mg/dL (4-19); BUN/Creat Ratio 16.3 RATIO (10-20); Calcium,Total 8.8 mg/dL (7.6-11.0); Carbon Dioxide 22.7 mmol/L (21.0-32.0); Chloride 106 mmol/L (98-108); Estimated Creatinine Clearance 39.86 ml/min (50-250); Glucose 124 mg/dL (70-99); Potassium 4.4 mmol/L (3.3-5.1)
--- NOTE | 2025-05-12 08:45 | PCM.PN.SRG ---
Subjective Subjective Doing well overall. No tenderness in the lower extremity today. Tolerating dressing changes. Objective Data Objective Data Vital Signs: Vital Signs Temp Pulse Resp BP Pulse Ox O2 Del Method 98.9 F 60 16 105/59 L 99 Nasal Cannula 05/12/25 05:00 05/12/25 05:00 05/12/25 05:00 05/12/25 05:00 05/12/25 05:00 05/12/25 05:00 Oxygen Delivery Method Nasal Cannula Weight: 188 lb 0.869 oz Body Mass Index (BMI) 26.9 Intake & Output: Intake and Output for Last 24 Hours 05/10/25 05/11/25 05/12/25 23:59 23:59 23:59 Intake Total 500 / 500 Output Total 100 / 300 350 / 350 Balance 400 / 200 -350 / -350 Lab / Micro Data 05/12/25 06:05 05/12/25 06:05 Labs: Laboratory Results - last 24 hr 05/11/25 13:15: WBC 10.4, RBC 3.50 L, Hgb 10.7 L, Hct 33.3 L, MCV 95.1 H, MCH 30.6, MCHC 32.1, RDW Std Deviation 46.0 H, RDW Coeff of Karyna 13.2, Plt Count 269, MPV 10.3, Immature Gran % (Auto) 0.600, Neut % (Auto) 77.1 H, Lymph % (Auto) 10.2 L, [place] % (Auto) 10.8 H, Eos % (Auto) 0.6, Baso % (Auto) 0.7, Absolute Neuts (auto) 8.0 H, Absolute Lymphs (auto) 1.06, Nucleated RBC % 0, PT 19.9 H, INR 1.7, APTT 33.8, Sodium 139, Potassium 4.6, Chloride 106, Carbon Dioxide 24.6, Anion Gap 8, BUN 19, Creatinine 1.40 H, Estim Creat Clear Calc 41.28 L, Est GFR (MDRD) Non-Af 50 L, BUN/Creatinine Ratio 13.5, Glucose 108 H, Calcium 9.0 05/12/25 06:05: WBC 13.0 H, RBC 2.83 L, Hgb 8.7 L, Hct 26.5 L, MCV 93.6, MCH 30.7, MCHC 32.8, RDW Std Deviation 45.0 H, RDW Coeff of Karyna 13.2, Plt Count 250, MPV 10.2, Immature Gran % (Auto) 0.400, Neut % (Auto) 72.7 H, Lymph % (Auto) 13.7 L, [place] % (Auto) 11.9 H, Eos % (Auto) 0.8, Baso % (Auto) 0.5, Absolute Neuts (auto) 9.4 H, Absolute Lymphs (auto) 1.77, Nucleated RBC % 0, Differential Comment SACNNED, Platelet Estimate ADEQUATE, Anisocytosis 1+, Crenated Cell 1+, Acanthocytes (Spur) RARE, Sodium 137, Potassium 4.4, Chloride 106, Carbon Dioxide 22.7, Anion Gap 9, BUN 24 H, Creatinine 1.45 H, Estim Creat Clear Calc 39.86 L, Est GFR (MDRD) Non-Af 48 L, BUN/Creatinine Ratio 16.3, Glucose 124 H, Calcium 8.8 Physical Exam Narrative Left leg dressings changed. No active bleeding today. Minimal reaccumulation of blood. Skin on the leg is soft. Minimal signs of skin necrosis (just at the edges of the incisoin) Assessment & Plan Assessment/Plan (1) Chronic anticoagulation: PLAN: No active bleeding on rounds today (2) Leg ulcer, left: PLAN: Plan Continue WTD dressings BID Continue some ZENAIDA compression Continue to hold Eliquis as able Plan for OR next week for debridement (18 May 2025) once skin/wound edges have completely demarcated. Anticipate 1 debridement and then skin grafting.
[2025-05-12 09:15] VITALS: BP 82/46; PULSE 61; RESP 15; TEMP 36.9; O2SAT 99
[2025-05-12 11:00] VITALS: BP 86/43; PULSE 61; O2SAT 97
--- NOTE | 2025-05-12 11:03 | PN.HOSP_ITS ---
Subjective Subjective Doing well, no issues overnight, pain minimal. Hemoglobin did drop to 8.7 will recheck this afternoon Objective Data Objective Data Vital Signs: Vital Signs Temp Pulse Resp BP Pulse Ox O2 Del Method 98.5 F 61 15 82/46 L 99 Room Air 05/12/25 09:15 05/12/25 09:15 05/12/25 09:15 05/12/25 09:15 05/12/25 09:15 05/12/25 09:15 Oxygen Delivery Method Room Air Weight: 188 lb 0.869 oz Body Mass Index (BMI) 26.9 Intake & Output: Intake and Output for Last 24 Hours 05/11/25 05/12/25 05/13/25 03:59 03:59 03:59 Intake Total 500 / 500 Output Total 300 / 300 150 / 150 Balance 200 / 200 -150 / -150 Lab / Micro Data 05/12/25 06:05 05/12/25 06:05 Labs: Laboratory Results - last 24 hr 05/11/25 13:15: WBC 10.4, RBC 3.50 L, Hgb 10.7 L, Hct 33.3 L, MCV 95.1 H, MCH 30.6, MCHC 32.1, RDW Std Deviation 46.0 H, RDW Coeff of Karyna 13.2, Plt Count 269, MPV 10.3, Immature Gran % (Auto) 0.600, Neut % (Auto) 77.1 H, Lymph % (Auto) 10.2 L, [place] % (Auto) 10.8 H, Eos % (Auto) 0.6, Baso % (Auto) 0.7, Absolute Neuts (auto) 8.0 H, Absolute Lymphs (auto) 1.06, Nucleated RBC % 0, PT 19.9 H, INR 1.7, APTT 33.8, Sodium 139, Potassium 4.6, Chloride 106, Carbon Dioxide 24.6, Anion Gap 8, BUN 19, Creatinine 1.40 H, Estim Creat Clear Calc 41.28 L, E st GFR (MDRD) Non-Af 50 L, BUN/Creatinine Ratio 13.5, Glucose 108 H, Calcium 9.0 05/12/25 06:05: WBC 13.0 H, RBC 2.83 L, Hgb 8.7 L, Hct 26.5 L, MCV 93.6, MCH 30.7, MCHC 32.8, RDW Std Deviation 45.0 H, RDW Coeff of Karyna 13.2, Plt Count 250, MPV 10.2, Immature Gran % (Auto) 0.400, Neut % (Auto) 72.7 H, Lymph % (Auto) 13.7 L, [place] % (Auto) 11.9 H, Eos % (Auto) 0.8, Baso % (Auto) 0.5, Absolute Neuts (auto) 9.4 H, Absolute Lymphs (auto) 1.77, Nucleated RBC % 0, Differential Comment SACNNED, Platelet Estimate ADEQUATE, Anisocytosis 1+, Crenated Cell 1+, Acanthocytes (Spur) RARE, Sodium 137, Potassium 4.4, Chloride 106, Carbon Dioxide 22.7, Anion Gap 9, BUN 24 H, Creatinine 1.45 H, Estim Creat Clear Calc 39.86 L, Est GFR (MDRD) Non-Af 48 L, BUN/Creatinine Ratio 16.3, Glucose 124 H, Calcium 8.8 Physical Exam Narrative General: Alert, Oriented x3, Cooperative, No apparent distress HEENT: Atraumatic, PERRLA, EOMI, Normocephalic Oral: Moist Mucosa Neck: Supple, No JVD Lungs: Clear to auscultation, Normal air movement, No rhonchi, No wheeze, No rales Cardiovascular: Regular rate, Regular Rhythm, Normal S1, Normal S2, No murmurs Abdomen: Soft, Non Tender, Non-Distended, No Hepato-splenomegaly Extremities: No edema, Capillary Refill Less than 3 Seconds Skin: Area of left calf hematoma is wrapped, yesterday there was an active arterial bleeder that was ligated at bedside Musculoskeletal: No Tenderness to Palpation of Joints or Extremities Neurological: No focal neurological deficits, moves all extremities Psych/Mental Status: Normal Affect, Appropriate Assessment & Plan Assessment/Plan (1) Hematoma of left lower leg: PLAN: Plan 1. Left leg hematoma with pain with ambulation ? No fracture from outside urgent care ? Appreciate plastic surgery's assistance, plan for wet-to-dry dressing changes and then surgery on Friday as an outpatient with possible skin grafting on Friday ? Will consult wound care ? Will continue to hold Eliquis ? Hemoglobin dropped to 8.7, will recheck this afternoon 2. Paroxysmal A-fib/chronic combined systolic and diastolic CHF likely due to amyloidosis/HLD ? Will hold his Eliquis ? Will hold his Aldactone today as his pressures are little bit soft but he is asymptomatic ? He can continue to take tafamidis but if he can bring it from home ? Continue with Lipitor DVT: Ambulation Charges/Coding Visit Charges Inpatient E&M: 98852 Subs Hosp L2
[2025-05-12] MEDS: TAFAMIDIS 61 MG CAPSULE PO (11:36)
[2025-05-12 12:35] LABS: Hematocrit 26.4 % (40-54); Hemoglobin 8.6 g/dL (13.0-16.5)
--- NOTE | 2025-05-12 14:47 | NURSING ---
offered to ambulate pt but he has a couple visitors so he requested to go later
[2025-05-12 16:00] VITALS: BP 95/47; PULSE 66; RESP 14; TEMP 36.7; O2SAT 100
--- NOTE | 2025-05-12 17:51 | NURSING ---
Pt dropped one 500mg tylenol on floor. This RN obtained an additional 500mg tablet from [facility] and threw away pill that was on floor.
[2025-05-12 21:22] VITALS: BP 109/58; PULSE 60; RESP 18; TEMP 37; O2SAT 99
[2025-05-12] MEDS: 0.9% Saline Lock 10 ML Syringe IV (21:35)
[2025-05-13] VITALS (8 sets, daily range): BP systolic 93–129; BP diastolic 54–80; PULSE 57–62; RESP 15–18; TEMP 36.3–36.7; O2SAT 97–100
[2025-05-13 05:43] LABS: Hematocrit 22.5 % (40-54); Hemoglobin 7.7 g/dL (13.0-16.5); Immature Granulocytes Count 0.060 X10^3/uL (0.0-0.0); Mean Corp Hgb Conc 34.2 g/dL (32-36); Mean Corpuscular Volume 92.2 fL (80-94); Mean Platelet Vol. 11.0 fl (6.2-12.0); NRBC Flagged by Analyzer 0 % (0-5); POSITIVE DIFFERENTIAL YES; Platelet Count 241 K/mm3 (150-450); RBC Distribution Width CV 13.2 % (11.6-14.6); RBC Distribution Width SD 44.2 fl (35.1-43.9); Red Blood Count 2.44 M/mm3 (4.6-6.2); White Blood Count 11.7 K/mm3 (4.4-11.0)
[2025-05-13 06:01] LABS: Differential Indicated SCAN CRITERIA MET
[2025-05-13 06:54] LABS: Differential Comment SCANNED
--- NOTE | 2025-05-13 08:35 | NURSING ---
PT HESITANT TO HAVE BLOOD TRANSFUSION. QUESTIONS ANSWERED BUT PT WOULD LIKE DR PAIGE TO COME BACK AND TALK MORE WITH HIM. TEXT SENT TO DR PAIGE
--- NOTE | 2025-05-13 10:33 | CASEMGMT ---
Discharge Planning A list of?HH providers including quality and resource use data and consistent with the patient's preferred geographic region, medical needs, and insurance network was created in [facility] [facility].? This list was provided to the RN SUMA. Mariana Quiroz, Discharge Planning Asst.
--- NOTE | 2025-05-13 11:02 | DCINST_ITS ---
Discharge Instructions DC O2, CPAP, BIPAP needs Home O2 Discharge instructions: No Dressing / Incision Discharge Activity: Return to Normal Activity Dressing / Incision Call your doctor if you observe: Fever of 101 or Higher, Shortness of breath, Dizziness, Fainting spells, Swelling in the ankles, Chest pain and Increased palpitations (irregular heartbeat) Follow Up Care Test Results: Test results from this visit will be discussed in further detail at your follow- up appointment, if applicable. Discharge Plan Admission Admit Date/Time: 05/11/25 13:29 Attending Provider: Ollie Chowdhury Primary Care Provider: Ramu Pelaez Consulting Providers: Billy Brown; Rangel Joseph Instructions Additional Instructions / Restrictions: Follow-up on Friday with your primary care doctor to obtain lab work to monitor your hemoglobin Discharge Orders/Prescriptions Prescriptions: Continued acetaminophen 500 mg capsule 1,000 mg PO Q6H PRN (Reason: fever or pain) Vyndamax 61 mg capsule 61 mg PO DAILY atorvastatin 40 mg tablet See Rx Instructions .ROUTE .COMPLEX Qty: 90 4RF Dose Instruction: TAKE 1 TABLET BY MOUTH EVERY DAY AT BEDTIME Rx Instructions: TAKE 1 TABLET BY MOUTH EVERY DAY AT BEDTIME spironolactone 25 mg tablet See Rx Instructions .ROUTE .COMPLEX Qty: 90 3RF Dose Instruction: TAKE 1 (ONE) TABLET BY MOUTH DAILY Rx Instructions: TAKE 1 (ONE) TABLET BY MOUTH DAILY Held apixaban 5 mg tablet 5 mg PO BID Qty: 180 3RF Hold Instructions: Resume on 05/20/25. Referrals / Follow Up: Ramu Pelaez MD [Primary Care Provider, Family Practice] - Within 1 Week Rangel Joseph MD [Med Staff - Active Staff, Plastic Surgery] - 05/18/25 Disposition Disposition (needs filled in before D/C Order can be placed): Home, Self Care
--- NOTE | 2025-05-13 11:50 | CASEMGMT ---
Addendum entered by Shereen Christensen 05/13/25 15:31: Pt present and was taught dressing changes and given dressing changes. NORA MOISE into pt room, pt is interested in HHC, pt agreeable. Provided pt with a list of HHC agencies created by dc field administrative assistant. Pt chose [facility] as first choice. TC to Ankita at [facility], they are able to accept pt for SOC on Friday. Pt and agreeable to this. They are ready for dc. Addendum entered by Shereen Christensen 05/13/25 13:30: Received tc from pt . She states she will be in to the hospital shortly. She states she is willing to learn dressing change. Pt nurse aware of this and will wait until she arrives to do dressing change. She states that she would be interested in HHC. She will ask for NORA MOISE when she arrives. Addendum entered by Shereen Christensen 05/13/25 12:26: Referral sent to [facility] for FWW at this time via [facility]. Original Note: NORA MOISE Assessment: Face to Face with pt for initial transition planning/care coordination assessment. NORA MOISE introduced self and role at [facility], pt voices understanding and consents to assessment. Pt is A&O x4 and answers all questions appropriately at this time. Pt sitting up in bed in no distress receiving blood products. Care providers, pharmacy, and demographics verified/updated. Admitting Dx: calf hematoma Strata Score: 3 PCP:Benigno Specialists:Joseph cardio Preferred Pharmacy: [facility] Insurance: [facility] Prescription Benefit: yes LNOK: Rosalie Ennis, Living Arrangements: Pt lives with in a two story home with a ramp to enter in the garage. Pt states he has FFSU. Pt reports he is indep in ADL/IADLs and denies concerns at home. Transportation: Pt drives self and denies concerns with transportation. DME:built in shower chair HHC/SNF: Denies hx of Pt states no concerns with going home at time of dc. Pt states he is indep at home and expresses disinterest with offerings of assistance at home. He states his fall was a fluke. Pt denies any need for any therapy at home. Discussed HHC for bid dressing changes. Pt states his is able to learn dressing changes. He does not know if he needs HHC but states to ask his . He states if she wants it, he will take it and she can pick the agency. TC to pt , left vm on cell phone. TC to home phone, no answer, no vm left. Discussed with pt nurse that will need education on dressing changes. Pt states he is interested in a FWW. Provided pt with a verbal local in network list of DME companies, pt denied preference and is agreeable to [employer]. Pt states no further concerns/needs. CM to follow. Advised pt to ask CM if any further questions/concerns/needs arise, voices understanding. Pt Goal: Home Plan: Home vs Home with HHC and FWW Jayme MELENDEZ CM
--- NOTE | 2025-05-13 12:26 | CASEMGMT ---
NORA CM in to discuss STEARNS form with patient. RN CM explained STEARNS form, patient voiced understanding. Pt signed form and filed in chart. Pt provided with a copy of signed STEARNS form. Patient had no further questions or concerns at this time.
[2025-05-13] MEDS: TAFAMIDIS 61 MG CAPSULE PO (14:13)
--- NOTE | 2025-05-13 15:46 | PCM.DC.SUM ---
Providers Date of Admission: 05/11/25 Primary Care Physician: Ramu Pelaez MD Consultations 05/11/25 14:09 Consult: Onc/Wound/milling machine set up operator Routine Comment: Consult: Orthopedics Routine Consulting Provider: Billy Brown Reason for Consult: calf hematoma EMERGENT Consult: No Notified: Yes Date Notified: 05/11/25 Time Notified: 13:48 Method of Notification: ED Physician Initiated 05/11/25 16:05 Consult: Plastic Surgery Routine Consulting Provider: Rangel Joseph Reason for Consult: Hematoma EMERGENT Consult: No Notified: Yes Date Notified: 05/11/25 Time Notified: 16:06 Method of Notification: Verbal Reason For Visit: CALF HEMATOMA Diagnosis Discharge Diagnosis (1) Hematoma of left lower leg: Status: Acute Code(s): S80.12XA - Contusion of left lower leg, initial encounter Medications at Discharge Home Medications tafamidis 61 mg capsule (Vyndamax) 61 mg PO DAILY amyloidosis 10/05/20 atorvastatin 40 mg tablet See Rx Instructions .Route .COMPLEX #90 tabs 11/17/24 spironolactone 25 mg tablet See Rx Instructions .Route .COMPLEX #90 tabs 11/17/24 apixaban 5 mg tablet 5 mg PO BID #180 tabs 03/15/25 Held on 05/13/25. Instructions: Resume on 05/20/25. acetaminophen 500 mg capsule 1,000 mg PO Q6H PRN fever or pain 05/11/25 Hospital Course Operations None Procedures None Summary of Care Provided Minutes Spent on Discharge: 39 Hospital Course: Per HPI: LUIS FERNANDO MAE, is a 84 M who presents to the hospital because of leg pain. He hit his left leg in a fall 2 nights ago and he developed a hematoma as he is on Eliquis for A-fib. He went to urgent care and they Steri-Stripped the wound and got x-rays which did not show any fracture in his left lower extremity. He presented to the hospital because of significant pain with this though no signs of infection as he remains afebrile without leukocytosis. His hemoglobin is 10.7. Orthopedic surgery was consulted in the emergency room did not feel like he had compartment syndrome and while in the emergency room the wound opened and evacuated approximately 200 cc of blood clot. He has been refusing pain medicines in the emergency room. Hospital Course: 1. Left leg hematoma after mechanical fall at home as well as acute blood loss anemia secondary to traumatic leg injury worsened by anticoagulation?84-year-old male who is on Eliquis for A-fib presents to the hospital after a mechanical fall, initially he had gone to an urgent care they performed x-rays that did not demonstrate a fracture on his left lower extremity. He continued to have pain and difficulty with ambulation so he presented to the hospital, in the emergency room his hematoma ruptured and he was admitted to the hospital for further evaluation. While here in the hospital hemoglobin went from 10.7 down to 7.7 on the day of discharge. He was extremely reluctant to have a blood transfusion because of the potential side effects, did discuss with him the potential side effects of all of his medications and that some things are necessary despite the risks he ultimately did agree to having 1 unit done but he refused the second unit of blood. I did call his PCPs office to relay his hospitalization including the need for repeat CBC early next week, he may need another transfusion next week since he did not get the second unit here though on wound change today there did not appear to be any further active bleeding so hopefully he has equilibrated at this time. The plan is to return to the hospital on Friday for wound debridement and wound VAC placement and then possible skin graft on Friday depending on plastic surgery schedule. I have held his Eliquis until next Friday but I also relayed to his PCP the need to monitor surgical recommendations and decide when it is appropriate to restart on their end. He request to be discharged today and expressed understanding of the risks and benefits of going home and wants to go home today. 2. 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 His home medications were continued where appropriate Physical Exam Narrative General: Alert, Oriented x3, Cooperative, No apparent distress HEENT: Atraumatic, PERRLA, EOMI, Normocephalic Oral: Moist Mucosa Neck: Supple, No JVD Lungs: Clear to auscultation, Normal air movement, No rhonchi, No wheeze, No rales Cardiovascular: Regular rate, Regular Rhythm, Normal S1, Normal S2, No murmurs Abdomen: Soft, Non Tender, Non-Distended, No Hepato-splenomegaly Extremities: No edema, Capillary Refill Less than 3 Seconds Skin: Left calf hematoma currently dressed and wrapped Musculoskeletal: No Tenderness to Palpation of Joints or Extremities Neurological: No focal neurological deficits, moves all extremities Psych/Mental Status: Normal Affect, Appropriate Weight / BMI Weight Weight: 188 lb 0.869 oz Body Mass Index (BMI) 26.9 ABG / Lab / Microbiology Data 05/13/25 04:40 05/12/25 06:05 Laboratory: Laboratory Results - last 24 hr 05/12/25 12:25: Blood Type A POSITIVE, Antibody Screen NEGATIVE, Crossmatch See Detail 05/13/25 04:40: WBC 11.7 H, RBC 2.44 L, Hgb 7.7 L, Hct 22.5 L, MCV 92.2, MCH 31.6, MCHC 34.2, RDW Std Deviation 44.2 H, RDW Coeff of Karyna 13.2, Plt Count 241, MPV 11.0, Immature Gran % (Auto) 0.500, Neut % (Auto) 65.7, Lymph % (Auto) 18.4 L, Gibson % (Auto) 13.3 H, Eos % (Auto) 1.3, Baso % (Auto) 0.8, Absolute Neuts (auto) 7.7, Absolute Lymphs (auto) 2.15, Nucleated RBC % 0, Differential Comment SCANNED D/C Instructions Call your doctor if you observe: Fever of 101 or Higher, Shortness of breath, Dizziness, Fainting spells, Swelling in the ankles, Chest pain and Increased palpitations (irregular heartbeat) DC O2, CPAP, BIPAP Needs Home O2 Discharge instructions: No Meaningful Use Info Meaningful Use Meaningful Use Diagnoses (Choose all that apply): None applicable Discharge Plan Admission Admit Date/Time: 05/11/25 13:29 Attending Provider: Ollie Chowdhury Primary Care Provider: Ramu Pelaez Consulting Providers: Billy Brown; Rangel Joseph Instructions Additional Instructions / Restrictions: Follow-up on Friday with your primary care doctor to obtain lab work to monitor your hemoglobin Discharge Orders/Prescriptions Prescriptions: Continued acetaminophen 500 mg capsule 1,000 mg PO Q6H PRN (Reason: fever or pain) Vyndamax 61 mg capsule 61 mg PO DAILY atorvastatin 40 mg tablet See Rx Instructions .ROUTE .COMPLEX Qty: 90 4RF Dose Instruction: TAKE 1 TABLET BY MOUTH EVERY DAY AT BEDTIME Rx Instructions: TAKE 1 TABLET BY MOUTH EVERY DAY AT BEDTIME spironolactone 25 mg tablet See Rx Instructions .ROUTE .COMPLEX Qty: 90 3RF Dose Instruction: TAKE 1 (ONE) TABLET BY MOUTH DAILY Rx Instructions: TAKE 1 (ONE) TABLET BY MOUTH DAILY Held apixaban 5 mg tablet 5 mg PO BID Qty: 180 3RF Hold Instructions: Resume on 05/20/25. Referrals / Follow Up: Ramu Pelaez MD [Primary Care Provider, Family Practice] - Within 1 Week Rangel Joseph MD [Med Staff - Active Staff, Plastic Surgery] - 05/18/25 Disposition Disposition (needs filled in before D/C Order can be placed): Home, Self Care Charges/Coding Visit Charges Inpatient E&M: 89651 Disch Hosp >30min
== END 2025-05-13 15:29 | disposition home or self-care (01) ==
LOC: ED 13:32 → MS3 13:50
PROVIDERS: Admitting Provider Family Medicine; Emergency Provider Emergency Medicine; PCP Family Medicine; Visit Provider Family Medicine
DX: S80.12XA Contusion of left lower leg, initial encounter (principal); E85.9 Amyloidosis, unspecified; I50.42 Chronic combined systolic (congestive) and diastolic (congestive) heart failure; I48.0 Paroxysmal atrial fibrillation; I42.8 Other cardiomyopathies; S81.812A Laceration without foreign body, left lower leg, initial encounter; I25.10 Atherosclerotic heart disease of native coronary artery without angina pectoris; N18.9 Chronic kidney disease, unspecified; E78.5 Hyperlipidemia, unspecified; R26.2 Difficulty in walking, not elsewhere classified; Z79.01 Long term (current) use of anticoagulants; Z79.899 Other long term (current) drug therapy; Z95.810 Presence of automatic (implantable) cardiac defibrillator; W19.XXXA Unspecified fall, initial encounter; D62 Acute posthemorrhagic anemia
CPT/HCPCS: 10140; 36415; 36430; 80048; 85014; 85018; 85025; 85610; 85730; 86850; 86900; 86901; 96374; 99221; 99284; P9016; A4216; G0378

== ENCOUNTER 2025-05-18 15:00 | Observation (INO) | payer MEDICARE, SELFPAY ==
--- NOTE | 2025-05-16 15:43 | PAT.ANE_ITS ---
Pre-Assessment Diagnosis/Proposed Procedure Planned Operative Procedure(s): I&D, WOUND VAC PLACEMENT Anesthesia History Anesthesia History - administrative assistant front desk: Anesthesia History - administrative assistant front desk Hx Hospitalization Yes: 05/13/25 LEFT LEG 05/16/25 10:37 HEMATOMA Any Problems With Anesthesia No 05/16/25 10:37 Cholinesterase deficiency No 05/16/25 10:37 You/Your Family Experience No 05/16/25 10:37 fever (hyperthermia) with Relationship Recent Exposure to Contagious No 05/11/25 14:30 Disease Does patient have nerve No 05/16/25 10:37 stimulator Patient instructed to have device shut off --Does patient have Pacemaker or ICD? When Was Last Pacemaker Check QUESTION #4 FULL TEXT: You/Your Family Experience fever (hyperthermia) with Anesthesia Last Oral Intake Last Oral intake: Last Oral Intake NPO since Meds taken in AM with sips of water? Meds patient instructed to take am of surgery PONV PONV - administrative assistant front desk: PONV - administrative assistant front desk Female No 05/16/25 10:37 HX of Motion Sickness No 05/16/25 10:37 HX of N/V After Surgery No 05/16/25 10:37 Non-Smoker Yes 05/16/25 10:37 Duration of Surgery greater Yes 05/16/25 10:37 than 60 minutes Number of Risk Factors 2 05/16/25 10:37 PONV Score Moderate Risk 05/16/25 10:37 Height & Weight Height & Weight: Anesthesia: Height & Weight Height 5 ft 10 in 05/11/25 14:24 Respiratory Assessment Respiratory Assessment - administrative assistant front desk: Respiratory Tract Infection Hx - administrative assistant front desk Hx Respiratory Tract Infection No 05/16/25 10:37 STOP Sleep Apnea STOP Sleep Apnea - administrative assistant front desk: STOP Sleep Apnea - administrative assistant front desk Hx Hypertension No 05/16/25 10:37 Hx Sleep Apnea No 05/16/25 10:37 CPAP BIPAP Do you snore loudly (louder No 05/16/25 10:37 than talking or can be heard Do you often feel tired/ No 05/16/25 10:37 fatigued/ sleepy during daytime? Has anyone observed you stop No 05/16/25 10:37 breathing during sleep? STOP Results Negative 05/16/25 10:37 QUESTION #5 FULL TEXT : Do you snore loudly (louder than talking or can be heard through closed doors)? Tobacco Use History Tobacco Use History - administrative assistant front desk: Tobacco Use History - administrative assistant front desk Tobacco Use Non-smoker 11/02/24 09:13 Smoking Status Never smoker 05/16/25 10:37 Hx Tobacco Use No 05/16/25 10:37 Years Smoking Packs Smoked per Day Smoking Cessation Date was within the last 15 years Hx Smoking Cessation Date Hx Smoking Cessation Counseling Hematologic Medial History Hematologic Hx - administrative assistant front desk: Hematologic Medical Hx - library clerk Hx of Blood Transfusion Yes 05/16/25 10:37 Hx of Transfusion in last 3 No 05/16/25 10:37 Months Date of Last Transfusion (if 05/13/25 05/16/25 10:37 within last 3 months) Ever experience any problems No 05/16/25 10:37 with transfusion(s)? Specify any problems Hx of Preganancy in last 3 N/A 05/16/25 10:37 Months Nurse Filling Out Transfusion NBUCHER 05/16/25 10:37 & Questions: Date: 05/16/25 05/16/25 10:37 Time: 10:40 05/16/25 10:37 Patient unable to answer at this time (ie. confused, unrespo /Reproduction History /Reproductive History - administrative assistant front desk: /Reproductive Hx- administrative assistant front desk Hx Now No 05/16/25 10:37 Gestational Age (in weeks): EDC: Hx Hx Para Hx Section SAB No 05/16/25 10:37 Does the father of the baby or his family experience fever w Father of the baby Malignant Hypertension history comment [facility] Medical History (Updated 05/16/25 @ 10:48 by Corrine Flores) Wears hearing aid Loss of hearing Wears glasses Open wound High cholesterol DVT (deep venous thrombosis) History of heart attack Stroke/cerebrovascular accident CHF (congestive heart failure) Non-smoker History of pacemaker Cardiology follow-up encounter History of echocardiogram Cirrhosis of liver Edema of left lower extremity Cellulitis of left leg Difficulty with speech TIA (transient ischemic attack) History of ST elevation myocardial infarction (STEMI) (09/20/20) Suspected cerebrovascular accident (CVA) Syncope (03/15/21) Ascites Umbilical hernia Constipation Abdominal pain Diastasis of rectus abdominis Calculus of left kidney Gallbladder calculus Chronic abdominal pain Chronic neck pain Chronic kidney failure Contact dermatitis Typical atrial flutter Ventricular fibrillation and flutter (09/20/20) Acute kidney injury superimposed on chronic kidney disease Multiple premature ventricular complexes COVID-19 virus detected (06/20/20) Dysfunction of left eustachian tube Cardiac amyloidosis Atrial tachycardia, paroxysmal Paroxysmal atrial fibrillation Atherosclerosis of coronary artery of [place] heart without angina pectoris Chronic combined systolic and diastolic CHF (congestive heart failure) Diastolic dysfunction, left ventricle Nonischemic cardiomyopathy Chronic systolic (congestive) heart failure History of basal cell cancer Atrioventricular node dysfunction Arthritis Obesity Vertigo Hyperlipidemia Home Medications ?Medication ?Instructions ?Recorded ?Last Taken ?Type tafamidis 61 mg capsule (Vyndamax) 61 mg PO DAILY amyl oidosis 10/05/20 05/10/25 History apixaban 5 mg tablet 5 mg PO BID BLOOD THINNER #1 80 tabs 03/15/25 05/10/25 Rx Held on 05/13/25. Instructions: Resume on 05/20/25. acetaminophen 500 mg capsule 1,000 mg PO Q6H PRN fever or pain 05/11/25 05/11/25 History atorvastatin 40 mg tablet 40 mg PO DAILY HLD 05/16/25 Unknown History spironolactone 25 mg tablet 25 mg PO DAILY HTN 5 Unknown History Allergy/AdvReac Type Severity Reaction Status Date / Time aspirin AdvReac Swelling Verified 05/16/25 10:34 ciprofloxacin AdvReac swelling Verified 05/16/25 10:34 metoprolol AdvReac weakness Verified 05/16/25 10:34 and collapse Penicillins AdvReac Swelling Verified 05/16/25 10:34 Htewidv-TKR-MrN Reductase AdvReac myalgia Verified 05/16/25 10:34 Inhibitor (Ydabvvt-Gog-Pwi Reductase Inhibitor) Sulfa (Sulfonamide AdvReac swelling Verified 05/16/25 10:34 Antibiotics) Family History Father Cancer bone Sister Hypertension Mother Diabetes Hypertension Surgical History (Updated 05/16/25 @ 10:48 by Corrine Flores) History of cardiac catheterization History of hand surgery H/O percutaneous transluminal coronary angioplasty (09/20/20) Biventricular ICD (implantable cardioverter-defibrillator) in place (05/04/19) History of left heart catheterization (09/22/20) 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) S/P cryoablation of arrhythmia (10/21/16) History of cardioversion (10/20/20) Hx of tonsillectomy H/O elbow surgery H/O nasal septoplasty H/O repair of right rotator cuff H/O knee surgery Left AC Seperation Repair Presence of tooth-root and mandibular implants Social History Smoking Status: Never smoker alcohol intake: never caffeine: Yes what type of physical activity do you participate in: walking and bicycling frequency: daily Audit: Pertinent Findings Pertinent Findings Echo (EF%) pertinent findings: Echo 04/14/2025. Normal LV size. Severe concentric left ventricular hypertrophy. Left ventricular ejection fraction is 40%. Left atrium is moderately enlarged. Amyloid pattern suggested. The global longitudinal strain is severely abnormal. Compared to previous study, the left ventricular systolic function is the same. Consult pertinent findings: Cardiology note 04/07/2025. Had a TOOTH CUTTER?D device placed in late April,, and September 2020 he had a syncopal episode presented with an acute inferior myocardial infarction underwent cardiac catheterization and thrombectomy of the right coronary artery. His defibrillator was noted to be interrogated and he was in atrial flutter at that time. His most recent echocardiogram was from October 2024 demonstrated ejection fraction 40%, moderate concentric left ventricular hypertrophy, aortic sclerosis with an apical sparing pattern which was similar to what he had had previously. Additional pertinent findings: H&H 7.7/22.5 Recommendation Anesthesia Recommendation Anesthesia recommendation: OPTIMIZED for anesthesia
[2025-05-18] VITALS (11 sets, daily range): BP systolic 118–141; BP diastolic 50–74; PULSE 60–69; RESP 16–17; TEMP 36.1–37; O2SAT 93–100; BMI 28.1
--- NOTE | 2025-05-18 11:57 | PCM.PRE.AN2 ---
ASA Classification* ASA Classification ASA Classification: 3 Assessment & Plan Anesthesia* Anesthesia Assessment Anesthesia Assessment: Discussed sedation and/or anesthesia options, risks, benefits, and alternatives with patient/parents/legal guardian/POA. Questions invited. The patient/parents/legal guardian/POA seems to understand and agrees to proceed with anesthesia plan. Reviewed the physical assessment, medical history, allergy history and patient home medications list prior to surgery/procedure/anesthetic and documented any changes. Performed airway and anesthesia risk assessments. Anesthesia Type Anesthesia Type: MAC Anesthesia Focused Assessment* Airway Assessment Mouth opens: >3 cm Mallampati Score: II Labs Anesthesia Preop lab: CBC WBC, (4.4-11.0) 11.7 K/mm3 H 05/13/25, 04:40 RBC, (4.6-6.2) 2.44 M/mm3 L 05/13/25, 04:40 Hgb, (13.0-16.5) 7.7 g/dL L 05/13/25, 04:40 Hct, (40-54) 22.5 % L 05/13/25, 04:40 Plt Count, (150-450) 241 K/mm3 05/13/25, 04:40 CHEMISTRY Potassium, (3.3-5.1) 4.4 mmol/L 05/12/25, 06:05 Sodium, (133-145) 137 mmol/L 05/12/25, 06:05 Magnesium, (1.5-2.2) 2.4 mg/dL H 04/07/25, 14:34 BUN, (4-19) 24 mg/dL H 05/12/25, 06:05 Creatinine, (0.70-1.20) 1.45 mg/dL H 05/12/25, 06:05 Glucose, (70-99) 124 mg/dL H 05/12/25, 06:05 TSH, (0.300-4.200) 2.210 uIU/mL 04/07/25, 14:34 COAG PT, (11.7-14.9) 19.9 SECONDS H 05/11/25, 13:15 Pre-Assessment Diagnosis/Proposed Procedure Planned Operative Procedure(s): I&D, WOUND VAC PLACEMENT Anesthesia History Anesthesia History - retail marketing manager: Anesthesia History - retail marketing manager Hx Hospitalization Yes: 05/13/25 LEFT LEG 05/16/25 10:37 HEMATOMA Any Problems With Anesthesia No 05/16/25 10:37 Cholinesterase deficiency No 05/16/25 10:37 You/Your Family Experience No 05/16/25 10:37 fever (hyperthermia) with Relationship Recent Exposure to Contagious No 05/11/25 14:30 Disease Does patient have nerve No 05/16/25 10:37 stimulator Patient instructed to have device shut off --Does patient have Pacemaker or ICD? When Was Last Pacemaker Check QUESTION #4 FULL TEXT: You/Your Family Experience fever (hyperthermia) with Anesthesia Last Oral Intake Last Oral intake: Last Oral Intake NPO since Meds taken in AM with sips of water? Meds patient instructed to take am of surgery PONV PONV - retail marketing manager: PONV - retail marketing manager Female No 05/16/25 10:37 HX of Motion Sickness No 05/16/25 10:37 HX of N/V After Surgery No 05/16/25 10:37 Non-Smoker Yes 05/16/25 10:37 Duration of Surgery greater Yes 05/16/25 10:37 than 60 minutes Number of Risk Factors 2 05/16/25 10:37 PONV Score Moderate Risk 05/16/25 10:37 Height & Weight Height & Weight: Anesthesia: Height & Weight Height 5 ft 10 in 05/11/25 14:24 Respiratory Assessment Respiratory Assessment - retail marketing manager: Respiratory Tract Infection Hx - retail marketing manager Hx Respiratory Tract Infection No 05/16/25 10:37 STOP Sleep Apnea STOP Sleep Apnea - retail marketing manager: STOP Sleep Apnea - retail marketing manager Hx Hypertension No 05/16/25 10:37 Hx Sleep Apnea No 05/16/25 10:37 CPAP BIPAP Do you snore loudly (louder No 05/16/25 10:37 than talking or can be heard Do you often feel tired/ No 05/16/25 10:37 fatigued/ sleepy during daytime? Has anyone observed you stop No 05/16/25 10:37 breathing during sleep? STOP Results Negative 05/16/25 10:37 QUESTION #5 FULL TEXT : Do you snore loudly (louder than talking or can be heard through closed doors)? Tobacco Use History Tobacco Use History - retail marketing manager: Tobacco Use History - retail marketing manager Tobacco Use Non-smoker 11/02/24 09:13 Smoking Status Never smoker 05/16/25 10:37 Hx Tobacco Use No 05/16/25 10:37 Years Smoking Packs Smoked per Day Smoking Cessation Date was within the last 15 years Hx Smoking Cessation Date Hx Smoking Cessation Counseling Hematologic Medial History Hematologic Hx - retail marketing manager: Hematologic Medical Hx - mortgage loan reviewer Hx of Blood Transfusion Yes 05/16/25 10:37 Hx of Transfusion in last 3 No 05/16/25 10:37 Months Date of Last Transfusion (if 05/13/25 05/16/25 10:37 within last 3 months) Ever experience any problems No 05/16/25 10:37 with transfusion(s)? Specify any problems Hx of Preganancy in last 3 N/A 05/16/25 10:37 Months Nurse Filling Out Transfusion NBUCHER 05/16/25 10:37 & Questions: Date: 05/16/25 05/16/25 10:37 Time: 10:40 05/16/25 10:37 Patient unable to answer at this time (ie. confused, unrespo /Reproduction History /Reproductive History - retail marketing manager: /Reproductive Hx- retail marketing manager Hx Now No 05/16/25 10:37 Gestational Age (in weeks): EDC: Hx Hx Para Hx Section SAB No 05/16/25 10:37 Does the father of the baby or his family experience fever w Father of the baby Malignant Hypertension history comment Active Medications Active Medications: Current Medications Generic Name Dose Route Start Last Admin Trade Name Freq PRN Reason Stop Dose Admin Lactated Ringer's 1,000 mls @ 15 mls/hr 05/18/25 12:00 IV .Q48H ISSA PFSH Medical History Wears hearing aid Loss of hearing Wears glasses Open wound High cholesterol DVT (deep venous thrombosis) History of heart attack Stroke/cerebrovascular accident CHF (congestive heart failure) Non-smoker History of pacemaker Cardiology follow-up encounter History of echocardiogram Cirrhosis of liver Edema of left lower extremity Cellulitis of left leg Difficulty with speech TIA (transient ischemic attack) History of ST elevation myocardial infarction (STEMI) (09/20/20) Suspected cerebrovascular accident (CVA) Syncope (03/15/21) Ascites Umbilical hernia Constipation Abdominal pain Diastasis of rectus abdominis Calculus of left kidney Gallbladder calculus Chronic abdominal pain Chronic neck pain Chronic kidney failure Contact dermatitis Typical atrial flutter Ventricular fibrillation and flutter (09/20/20) Acute kidney injury superimposed on chronic kidney disease Multiple premature ventricular complexes COVID-19 virus detected (06/20/20) Dysfunction of left eustachian tube Cardiac amyloidosis Atrial tachycardia, paroxysmal Paroxysmal atrial fibrillation Atherosclerosis of coronary artery of [place] heart without angina pectoris Chronic combined systolic and diastolic CHF (congestive heart failure) Diastolic dysfunction, left ventricle Nonischemic cardiomyopathy Chronic systolic (congestive) heart failure History of basal cell cancer Atrioventricular node dysfunction Arthritis Obesity Vertigo Hyperlipidemia Home Medications ?Medication ?Instructions ?Recorded ?Last Taken ?Type tafamidis 61 mg capsule (Vyndamax) 61 mg PO DAILY amyloidosis 10/05/20 05/10/25 History apixaban 5 mg tablet 5 mg PO BID BLOOD THINNER #180 tabs 03/15/25 05/10/25 Rx Held on 05/13/25. Instructions: Resume on 05/20/25. acetaminophen 500 mg capsule 1,000 mg PO Q6H PRN fever or pain 05/11/25 05/11/25 History atorvastatin 40 mg tablet 40 mg PO DAILY HLD 05/16/25 Unknown History spironolactone 25 mg tablet 25 mg PO DAILY HTN 05/16/25 Unknown History Allergy/AdvReac Type Severity Reaction Status Date / Time aspirin AdvReac Swelling Verified 05/16/25 10:34 ciprofloxacin AdvReac swelling Verified 05/16/25 10:34 metoprolol AdvReac weakness Verified 05/16/25 10:34 and collapse Penicillins AdvReac Swelling Verified 05/16/25 10:34 Tseuigq-XCT-CfT Reductase AdvReac myalgia Verified 05/16/25 10:34 Inhibitor (Vbtczos-Rry-Rwp Reductase Inhibitor) Sulfa (Sulfonamide AdvReac swelling Verified 05/16/25 10:34 Antibiotics) Family History Father Cancer bone Sister Hypertension Mother Diabetes Hypertension Surgical History History of cardiac catheterization History of hand surgery H/O percutaneous transluminal coronary angioplasty (09/20/20) Biventricular ICD (implantable cardioverter-defibrillator) in place (05/04/19) History of left heart catheterization (09/22/20) 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
--- NOTE | 2025-05-18 12:08 | PCM.HP.STD ---
Documented by User: RODERICK Terrell 05/18/25 13:12 HPI - General General Date of Service: 05/18/25 HPI Narrative LUIS FERNANDO MAE, is a 84 M who presents today for left leg wound debridement and wound VAC placement. He notes since yesterday he's been having right groin pain only present when he's weight-bearing or lying down and lifting his leg up. Pain radiates down medial thigh and He denies weakness, numbness, tingling. Stat pelvis Xray was ordered which I reviewed and negative for bony injuries or dislocations, pending formal radiology read. HPI from 05/11/25: LUIS FERNANDO MAE is an 84-year-old male with past medical history of chronic kidney disease, cirrhosis, CVA, STEMI (has an implantable cardiac defibrillator), TIAs, and atrial fibrillation (on chronic anticoagulation with Eliquis) for whom plastic surgery is being consulted by orthopedic surgery with regards to a left leg hematoma. Patient fell 2 days ago on the left leg while in the shower. He suffered a laceration on the anterior of the proximal left leg and was sutured by the emergency department. X-rays (I reviewed and orthopedics reviewed) were negative for any acute fracture or malalignment (he does have a prosthetic knee on the left). He was sent home but he unfortunately developed a large hematoma underneath the skin of his left leg, the pressure of which opened up another laceration on the lateral aspect of his leg (which is new today). He was admitted by orthopedics/medicine and his Eliquis was discontinued for the time being. They asked that I take a look at the leg to see if there is any surgical intervention that could be performed. Before the consultation, patient ate lunch. Patient denies having any exquisite pain in the left leg. His leg was soft in all compartments however given the patient was actively bleeding (oozing from the base of the wound at the time of the consultation) and there was tightness of the surrounding skin, bedside evacuation of hematoma was performed emergently. Bleeding was controlled by [id number] suture and wound was dressed with wet-to-dry dressing. [facility] Medical History Wears hearing aid Loss of hearing Wears glasses Open wound High cholesterol DVT (deep venous thrombosis) History of heart attack Stroke/cerebrovascular accident CHF (congestive heart failure) Non-smoker History of pacemaker Cardiology follow-up encounter History of echocardiogram Cirrhosis of liver Edema of left lower extremity Cellulitis of left leg Difficulty with speech TIA (transient ischemic attack) History of ST elevation myocardial infarction (STEMI) (09/20/20) Suspected cerebrovascular accident (CVA) Syncope (03/15/21) Ascites Umbilical hernia Constipation Abdominal pain Diastasis of rectus abdominis Calculus of left kidney Gallbladder calculus Chronic abdominal pain Chronic neck pain Chronic kidney failure Contact dermatitis Typical atrial flutter Ventricular fibrillation and flutter (09/20/20) Acute kidney injury superimposed on chronic kidney disease Multiple premature ventricular complexes COVID-19 virus detected (06/20/20) Dysfunction of left eustachian tube Cardiac amyloidosis Atrial tachycardia, paroxysmal Paroxysmal atrial fibrillation Atherosclerosis of coronary artery of [place] heart without angina pectoris Chronic combined systolic and diastolic CHF (congestive heart failure) Diastolic dysfunction, left ventricle Nonischemic cardiomyopathy Chronic systolic (congestive) heart failure History of basal cell cancer Atrioventricular node dysfunction Arthritis Obesity Vertigo Hyperlipidemia Home Medications ?Medication ?Instructions ?Recorded ?Last Taken ?Type tafamidis 61 mg capsule (Vyndamax) 61 mg PO DAILY amyloidosis 10/05/20 05/18/25 History apixaban 5 mg tablet 5 mg PO BID BLOOD THINNER #180 tabs 03/15/25 05/15/25 Rx Held on 05/13/25. Instructions: Resume on 05/20/25. acetaminophen 500 mg capsule 1,000 mg PO Q6H PRN fever or pain 05/11/25 05/11/25 History atorvastatin 40 mg tablet 40 mg PO DAILY HLD 05/16/25 05/17/25 History spironolactone 25 mg tablet 25 mg PO DAILY HTN 05/16/25 05/17/25 History Allergy/AdvReac Type Severity Reaction Status Date / Time aspirin AdvReac Swelling Verified 05/18/25 12:11 ciprofloxacin AdvReac swelling Verified 05/18/25 12:11 metoprolol AdvReac weakness Verified 05/18/25 12:11 and collapse Penicillins AdvReac Swelling Verified 05/18/25 12:11 Aelvkjq-QLQ-JhN Reductase AdvReac myalgia Verified 05/18/25 12:11 Inhibitor (Jqhktqo-Cny-Vvh Reductase Inhibitor) Sulfa (Sulfonamide AdvReac swelling Verified 05/18/25 12:11 Antibiotics) Family History Father Cancer bone Sister Hypertension Mother Diabetes Hypertension Surgical History History of cardiac catheterization History of hand surgery H/O percutaneous transluminal coronary angioplasty (09/20/20) Biventricular ICD (implantable cardioverter-defibrillator) in place (05/04/19) History of left heart catheterization (09/22/20) 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) S/P cryoablation of arrhythmia (10/21/16) History of cardioversion (10/20/20) Hx of tonsillectomy H/O elbow surgery H/O nasal septoplasty H/O repair of right rotator cuff H/O knee surgery Left AC Seperation Repair Presence of tooth-root and mandibular implants Social History Smoking Status: Never smoker alcohol intake: never caffeine: Yes what type of physical activity do you participate in: walking and bicycling frequency: daily ROS ROS Narrative General: Denies fever, chills HEENT: Denies headaches, vision changes, sore throat Cardio: Denies chest pain, leg edema Pulmonary: Denies shortness of pain, cough, wheezing GI: Denies nausea, vomiting, diarrhea Assessment & Plan Assessment/Plan (1) Hematoma of left lower leg: (2) Leg ulcer, left: Documented by User: Dr. Rangel Joseph MD 05/18/25 13:45 PFSH Medical History Wears hearing aid Loss of hearing Wears glasses Open wound High cholesterol DVT (deep venous thrombosis) History of heart attack Stroke/cerebrovascular accident CHF (congestive heart failure) Non-smoker History of pacemaker Cardiology follow-up encounter History of echocardiogram Cirrhosis of liver Edema of left lower extremity Cellulitis of left leg Difficulty with speech TIA (transient ischemic attack) History of ST elevation myocardial infarction (STEMI) (09/20/20) Suspected cerebrovascular accident (CVA) Syncope (03/15/21) Ascites Umbilical hernia Constipation Abdominal pain Diastasis of rectus abdominis Calculus of left kidney Gallbladder calculus Chronic abdominal pain Chronic neck pain Chronic kidney failure Contact dermatitis Typical atrial flutter Ventricular fibrillation and flutter (09/20/20) Acute kidney injury superimposed on chronic kidney disease Multiple premature ventricular complexes COVID-19 virus detected (06/20/20) Dysfunction of left eustachian tube Cardiac amyloidosis Atrial tachycardia, paroxysmal Paroxysmal atrial fibrillation Atherosclerosis of coronary artery of [place] heart without angina pectoris Chronic combined systolic and diastolic CHF (congestive heart failure) Diastolic dysfunction, left ventricle Nonischemic cardiomyopathy Chronic systolic (congestive) heart failure History of basal cell cancer Atrioventricular node dysfunction Arthritis Obesity Vertigo Hyperlipidemia Home Medications ?Medication ?Instructions ?Recorded ?Last Taken ?Type tafamidis 61 mg capsule (Vyndamax) 61 mg PO DAILY amyloidosis 10/05/20 05/18/25 History apixaban 5 mg tablet 5 mg PO BID BLOOD THINNER #180 tabs 03/15/25 05/15/25 Rx Held on 05/13/25. Instructions: Resume on 05/20/25. acetaminophen 500 mg capsule 1,000 mg PO Q6H PRN fever or pain 05/11/25 05/11/25 History atorvastatin 40 mg tablet 40 mg PO DAILY HLD 05/16/25 05/17/25 History spironolactone 25 mg tablet 25 mg PO DAILY HTN 05/16/25 05/17/25 History Allergy/AdvReac Type Severity Reaction Status Date / Time aspirin AdvReac Swelling Verified 05/18/25 12:11 ciprofloxacin AdvReac swelling Verified 05/18/25 12:11 metoprolol AdvReac weakness Verified 05/18/25 12:11 and collapse Penicillins AdvReac Swelling Verified 05/18/25 12:11 Ylcenfx-WQL-RhO Reductase AdvReac myalgia Verified 05/18/25 12:11 Inhibitor (Vtaasep-Ovt-Yng Reductase Inhibitor) Sulfa (Sulfonamide AdvReac swelling Verified 05/18/25 12:11 Antibiotics) Family History Father Cancer bone Sister Hypertension Mother Diabetes Hypertension Surgical History History of cardiac catheterization History of hand surgery H/O percutaneous transluminal coronary angioplasty (09/20/20) Biventricular ICD (implantable cardioverter-defibrillator) in place (05/04/19) History of left heart catheterization (09/22/20) 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 No infection. Definite necrotic tissue still present Able to dorsiflex foot (5/5) Compartments soft. Assessment & Plan Assessment/Plan (1) Hematoma of left lower leg: (2) Leg ulcer, left: PLAN: Plan I talked to the patient extensively about the risks of surgery, including bleeding, infection, damage to surrounding structures, poor scaring, surgical site dehiscence and wound formation, need for wound care, need for repeat operations, failure to obtain the desired result, DVT/PE, and the risks of anesthesia including , including stroke (from low blood pressure/ischemia or clot). The benefits and alternatives of this surgery were also discussed. All of their questions were answered, and they agreed to proceed with surgery. We talked about plan for debridement and VAC placement INTERVAL H&P PLAN, DATE OF SURGERY: We will proceed with surgery today.
[2025-05-18] MEDS: Lactated Ringers 1,000 ML 15 ML IV (12:18)
--- NOTE | 2025-05-18 13:00 | RAD_ITS ---
PROCEDURE: PELVIS 1 OR 2 VIEWS 05/18/2025 REASON FOR EXAM: RIGHT GROIN PAIN S/P FALL TECHNIQUE: Procedure Code: RADPEL Modality: DX Procedure: PELVIS 1 OR 2 VIEWS COMPARISON: None FINDINGS: Hardware: Status post right total hip replacement. Bones: No fracture or dislocation. Joints: Degenerative changes of the sacroiliac joints. soft tissues: Soft tissues are unremarkable. Other: RAD/Pelvis 1 or 2 Views IMPRESSION: Status post right total hip replacement. No evidence of fracture or dislocation Reading Location: [place] [id number]
[2025-05-18] MEDS: Lidocaine 1% (5 ml sdv) 5 ML Vial 4 ML IV (13:46)
[2025-05-18] MEDS: Bupiv/Epi 0.25% 30 ML Vial (14:13)
[2025-05-18] MEDS: Lidocaine 1% /Epi 1:100 (20ml) 20 ML Vial (14:13)
[2025-05-18] MEDS: fentaNYL 100 MCG/2 ML Ampul IV (14:14)
--- NOTE | 2025-05-18 14:50 | PCM.POST.ANE ---
Anesthesia: Postop Eval I Current Vital Signs Temperature: 97.5 F Pulse Rate: 63 Blood Pressure: 118/65 Respiratory Rate: 16 Pulse Ox: 94 Assessment Airway patent: Yes Spontaneous unlabored respirations: Yes nausea: No Vomiting: No Anesthesia Complication: No Fluid Hydration Crystalloid volume administer (ml): 400 Total IV fluid infused: 400 Progress Note Anesthesia document: Postop Eval 1 completed: Yes
--- NOTE | 2025-05-18 14:57 | POSTOPAN2_ITS ---
Anesthesia Postop Eval I Sum Postop Eval Completion status Anesthesia document: Postop Eval 1 completed: Yes Anesthesia Postop Eval I Summary Anesthesia Postop Eval I Summary: Anesthesia Postop Eval I: Assessment Summary Airway patent Yes 05/18/25 14:51 PAPER [email or web address] Spontaneous unlabored Yes 05/18/25 14:51 PAPER TWISTER [email or web address] respirations Mental status nausea No 05/18/25 14:51 PAPER [email or web address] [email or web address].[email or web address] Vomiting No 05/18/25 14:51 PAPER [email or web address] [email or web address] Anesthesia Postop Eval I: Fluid Summary Crystalloid volume administer 400 05/18/25 14:51 PAPER [email or web address] [email or web address] (ml) Colloids volume administered ( ml) Blood Product volume administered (ml) Total IV fluid infused 400 05/18/25 14:51 PAPER [email or web address] [email or web address] Anesthesia Postop Eval I: Summary Notes Anesthesia Complication No 05/18/25 14:51 PAPER [email or web address] [email or web address] Anesthesia Complication Comment: Post-operative progress note Anesthesia: Postop Eval II Evaluation Mental status: Awake Pain Level: 0 nausea: No Vomiting: No
--- NOTE | 2025-05-18 14:57 | PCM.POSTANE2 ---
Anesthesia Postop Eval I Sum Postop Eval Completion status Anesthesia document: Postop Eval 1 completed: Yes Anesthesia Postop Eval I Summary Anesthesia Postop Eval I Summary: Anesthesia Postop Eval I: Assessment Summary Airway patent Yes 05/18/25 14:51 MIXING TANK [email or web address].[email or web address] Spontaneous unlabored Yes 05/18/25 14:51 MIXING TANK OPERATOR.[email or web address] respirations Mental status nausea No 05/18/25 14:51 MIXING TANK OPERATOR.[email or web address] Vomiting No 05/18/25 14:51 MIXING TANK OPERATOR.[email or web address] Anesthesia Postop Eval I: Fluid Summary Crystalloid volume administer 400 05/18/25 14:51 MIXING TANK OPERATOR.TNES (ml) Colloids volume administered ( ml) Blood Product volume administered (ml) Total IV fluid infused 400 05/18/25 14:51 MIXING TANK [email or web address].[email or web address] Anesthesia Postop Eval I: Summary Notes Anesthesia Complication No 05/18/25 14:51 MIXING TANK [email or web address].[email or web address] Anesthesia Complication Comment: Post-operative progress note Anesthesia: Postop Eval II Evaluation Mental status: Awake Pain Level: 0 nausea: No Vomiting: No
--- NOTE | 2025-05-18 14:57 | PCM.OPRPT ---
Operative Report (Standard) Operative Information Date of Procedure: 05/18/25 Pre-Operative Diagnosis: Left anterior leg wound after hematoma Post-Operative Diagnosis: Same Surgery/Procedure Performed: Debridement of left anterior leg wound 10 x 6 cm Irrigating nondisposable wound VAC placement 60 cm? artists' booking representative: Yes [facility]: Penny Amaral Tasks completed by judicial assistant: Retracting Type of Anesthesia: Local MAC (40 cc of a 50-50 mixture of 1% lidocaine with 1-200,000 epinephrine quarter percent Marcaine with 1-200,000 epinephrine) RN Documented Start/Stop Times: Operation Date: 05/18/25 13:20 Case Time Into Pre-Op 05/18/25 11:47 Out of Pre-Op 05/18/25 13:36 Anesthesia Start 05/18/25 13:41 Into Room 05/18/25 13:41 Procedure Start 05/18/25 14:13 Procedure End 05/18/25 14:39 Anesthesia End 05/18/25 14:43 Out of Room 05/18/25 14:43 Into Recovery 05/18/25 14:45 Procedure Start Time: 14:13 Procedure Stop Time: 14:39 Select all DRAINS/GRAFTS/IMPLANTS that apply: None Estimated Blood Loss: 25 cc Specimen collected: No Description of surgery: Indications: Patient has a left leg wound from a significant hematoma that was drained last week. He presents today for excision of the wound bed. Understands risk benefits and alternatives. There is necrotic debris at the base of the wound that requires washout and debridement. Procedure details: Patient was correct identified in preoperative holding and taken back to the operating room where he was administered sedation and the above-noted local anesthesia. He was prepped and draped in sterile fashion and a proper timeout was performed. A curved [place] scissors was used to excise necrotic fat and skin and a curette was used to excise biofilm and hypertrophic granulation tissue from the base of the wound. The wound undermines superiorly and there was some residual hematoma that was evacuated and washed out with 3 L of normal saline as well as Irrisept. The total excision of the wound was 10 x 6 cm (fat level). Hemostasis obtained with Bovie electrocautery. An irrigating wound VAC was placed for a total VAC placement of 60 cm?. The patient was awakened and taken to the PACU in stable condition. Postoperative plan: Patient will be admitted to our service for inpatient irrigating wound VAC followed by transition to home wound VAC for 3 times per week VAC changes. He will need to work with physical therapy as he has had significant decrease in mobility from this injury as well as from pain in his right hip (x-ray negative preoperatively on the right hip). Plan to consult hospitalist team for evaluation. He may need to go to rehab and I discussed this with his and they were in agreement. Surgical Findings: Some residual hematoma and necrotic skin and fat at the edges of the wound Complications Complications: No
--- NOTE | 2025-05-18 16:52 | PN.HOSP_ITS ---
Subjective Subjective Consult requested by Dr. Joseph for post-operative medical mgmt. This is an 84-year-old male who sustained a left encarnacion hematoma last month and was discharged with plans to have evacuation and wound VAC today. The procedure was performed today where the patient underwent debridement of left anterior leg wound of 10 x 6 cm with wound VAC placement. Patient tolerated procedure well and has since been moved over to [place] [id number]. He is currently denying any complaints at this time. Objective Data Objective Data Vital Signs: Vital Signs Temp Pulse Resp BP Pulse Ox O2 Del Method O2 Flow Rate 36.4 C L 60 16 137/66 H 100 Nasal Cannula 3 05/18/25 16:27 05/18/25 16:27 05/18/25 16:27 05/18/25 16:27 05/18/25 16:27 05/18/25 16:27 05/18/25 16:27 Oxygen Flow Rate (L/min) 3 Oxygen Delivery Method Nasal Cannula Weight: 89 kg Body Mass Index (BMI) 28.1 Intake & Output: Intake and Output for Last 24 Hours 05/16/25 05/17/25 05/18/25 23:59 23:59 23:59 Intake Total 1000 / 1000 Output Total Balance 975 / 975 Radiography Diagnostic Testing: Radiology Impression Pelvis X-Ray 05/18/25 13:00 IMPRESSION: Status post right total hip replacement. No evidence of fracture or dislocation Reading Location: [place] [address] Physical Exam Const alert and no apparent distress Constitutional Narrative: Up in bed. Nontoxic. Afebrile. No respiratory distress. No conversational dyspnea. HEENT head/scalp atraumatic and moist oral mucous membranes Resp normal respiratory effort, no retractions, no use of accessory muscles and clear to auscultation bilaterally Cardio regular rate, regular rhythm, S1 normal heart sound and S2 normal heart sound GI normal to inspection, nondistended, normoactive bowel sounds, soft to palpation, non-tender, non-distended and hepatosplenomegaly Extremity Extremity Narrative: Wound VAC over left anterior encarnacion. Neuro Sensorium / Orientation: awake and alert Assessment & Plan Assessment/Plan (1) Anemia: PLAN: Patient is hemoglobin was 7.7 did require transfusion last time he is here. Will follow-up his hemoglobin here given his surgery and follow that up in the morning. PLAN: Plan Left leg hematoma. Status post debridement and evacuation of the wound VAC placed today. Management per plastic surgery Atrial fibrillation: Apixaban currently on hold. Will defer to plastics when that could be resumed. Chronic HFrEF: EF of 40% from 2D echocardiogram from April 14, 2025. Continue with spironolactone Cardiac amyloidosis: Continue with tafamidis VTE prophylaxis: Will defer to plastics. Thank you for the consult. The hospital service will follow along during this patient's hospitalization. Charges/Coding Visit Charges Office Visits / Consults: 32900 OV L3 Est 20min
[2025-05-18] MEDS: 0.9% Normal Saline (1000mL) 1,000 ML 75 ML IV (17:23)
[2025-05-18] MEDS: Clindamycin 900 MG/50 ML BAG 75 MG IV (21:06)
[2025-05-18 22:36] LABS: Hematocrit 25.8 % (40-54); Hemoglobin 8.1 g/dL (13.0-16.5); Immature Granulocytes Count 0.060 X10^3/uL (0.0-0.0); Mean Corp Hgb Conc 31.4 g/dL (32-36); Mean Corpuscular Volume 97.4 fL (80-94); Mean Platelet Vol. 9.7 fl (6.2-12.0); NRBC Flagged by Analyzer 0 % (0-5); Platelet Count 439 K/mm3 (150-450); RBC Distribution Width CV 14.3 % (11.6-14.6); RBC Distribution Width SD 50.2 fl (35.1-43.9); Red Blood Count 2.65 M/mm3 (4.6-6.2); White Blood Count 11.1 K/mm3 (4.4-11.0)
[2025-05-18 23:05] LABS: Anion Gap 10 (5-15); BUN 26 mg/dL (4-19); BUN/Creat Ratio 15.5 RATIO (10-20); Calcium,Total 8.9 mg/dL (7.6-11.0); Carbon Dioxide 21.7 mmol/L (21.0-32.0); Chloride 105 mmol/L (98-108); Estimated Creatinine Clearance 38.10 ml/min (50-250); Glucose 112 mg/dL (70-99); Potassium 4.5 mmol/L (3.3-5.1)
[2025-05-19 00:50] VITALS: BP 121/72; PULSE 60; RESP 18; TEMP 36.9; O2SAT 96
[2025-05-19 04:57] VITALS: BP 107/55; PULSE 60; RESP 17; TEMP 36.8; O2SAT 100
[2025-05-19] MEDS: 0.9% Normal Saline (1000mL) 1,000 ML 75 ML IV (06:21)
[2025-05-19] MEDS: Clindamycin 900 MG/50 ML BAG 75 MG IV (06:23)
[2025-05-19 06:36] LABS: Hematocrit 25.7 % (40-54); Hemoglobin 8.4 g/dL (13.0-16.5); Immature Granulocytes Count 0.080 X10^3/uL (0.0-0.0); Mean Corp Hgb Conc 32.7 g/dL (32-36); Mean Corpuscular Volume 96.6 fL (80-94); Mean Platelet Vol. 9.6 fl (6.2-12.0); NRBC Flagged by Analyzer 0 % (0-5); Platelet Count 438 K/mm3 (150-450); RBC Distribution Width CV 14.1 % (11.6-14.6); RBC Distribution Width SD 50.0 fl (35.1-43.9); Red Blood Count 2.66 M/mm3 (4.6-6.2); White Blood Count 10.5 K/mm3 (4.4-11.0)
[2025-05-19 07:06] LABS: Anion Gap 11 (5-15); BUN 24 mg/dL (4-19); BUN/Creat Ratio 15.5 RATIO (10-20); Calcium,Total 8.7 mg/dL (7.6-11.0); Carbon Dioxide 21.4 mmol/L (21.0-32.0); Chloride 106 mmol/L (98-108); Estimated Creatinine Clearance 40.82 ml/min (50-250); Glucose 92 mg/dL (70-99); Potassium 4.7 mmol/L (3.3-5.1)
[2025-05-19 08:08] VITALS: BP 96/62; PULSE 61; RESP 16; TEMP 36.5; O2SAT 98
--- NOTE | 2025-05-19 09:37 | CASEMGMT ---
Addendum entered by Shereen Christensen 05/19/25 12:36: TC to [facility], requested appt for Friday via , requested returned call. Addendum entered by Shereen Christensen 05/19/25 12:33: NORA CM into pt room, pt sitting up in chair in no distress with home vac on. Pt states he would like [facility] to resume care. He denies need for a list of other options. Pt states he did well with therapy and does not need at home. Pt will f/u at [facility] on Friday. Requested charge nurse place home vac order. Addendum entered by Shereen Christensen 05/19/25 12:25: TC to Ankita at [facility], she is aware that pt will dc this date. Original Note: Spoke with Ankita at [facility], pt is active with SN services.
--- NOTE | 2025-05-19 11:49 | PCM.PN.HOSP ---
Subjective Subjective Patient is an 84-year-old gentleman on systemic anticoagulation with apixaban for paroxysmal A-fib who fell in the shower developed significant left lower extremity was admitted by plastic surgery patient underwent wound debridement with wound VAC placement. Objective Data Objective Data Vital Signs: Vital Signs Temp Pulse Resp BP Pulse Ox O2 Del Method O2 Flow Rate 97.7 F L 61 16 96/62 98 Room Air 3 05/19/25 08:08 05/19/25 08:08 05/19/25 08:08 05/19/25 08:08 05/19/25 08:08 05/19/25 08:08 05/18/25 16:27 Oxygen Flow Rate (L/min) 3 Oxygen Delivery Method Room Air Weight: 89 kg Body Mass Index (BMI) 28.1 Intake & Output: Intake and Output for Last 24 Hours 05/17/25 05/18/25 05/19/25 23:59 23:59 23:59 Intake Total 1550 / 1550 1622.5 / 1622.5 Output Total 300 / 300 Balance 1525 / 1525 1322.5 / 1322.5 Lab / Micro Data 05/19/25 06:18 05/19/25 06:18 Labs: Laboratory Results - last 24 hr 05/18/25 22:29: WBC 11.1 H, RBC 2.65 L, Hgb 8.1 L, Hct 25.8 L, MCV 97.4 H, MCH 30.6, MCHC 31.4 L, RDW Std Deviation 50.2 H, RDW Coeff of Karyna 14.3, Plt Count 439, MPV 9.7, Immature Gran % (Auto) 0.500, Neut % (Auto) 73.8 H, Lymph % (Auto) 11.2 L, [place] % (Auto) 11.0 H, Eos % (Auto) 2.9, Baso % (Auto) 0.6, Absolute Neuts (auto) 8.2 H, Absolute Lymphs (auto) 1.24, Nucleated RBC % 0, Sodium 137, Potassium 4.5, Chloride 105, Carbon Dioxide 21.7, Anion Gap 10, BUN 26 H, Creatinine 1.65 H, Estim Creat Clear Calc 38.10 L, Est GFR (MDRD) Non-Af 41 L, BUN/Creatinine Ratio 15.5, Glucose 112 H, Calcium 8.9 05/19/25 06:18: WBC 10.5, RBC 2.66 L, Hgb 8.4 L, Hct 25.7 L, MCV 96.6 H, MCH 31.6, MCHC 32.7, RDW Std Deviation 50.0 H, RDW Coeff of Karyna 14.1, Plt Count 438, MPV 9.6, Immature Gran % (Auto) 0.800, Neut % (Auto) 70.7 H, Lymph % (Auto) 12.4 L, [place] % (Auto) 11.7 H, Eos % (Auto) 3.7, Baso % (Auto) 0.7, Absolute Neuts (auto) 7.4, Absolute Lymphs (auto) 1.30, Nucleated RBC % 0, Sodium 138, Potassium 4.7, Chloride 106, Carbon Dioxide 21.4, Anion Gap 11, BUN 24 H, Creatinine 1.54 H, Estim Creat Clear Calc 40.82 L, Est GFR (MDRD) Non-Af 44 L, BUN/Creatinine Ratio 15.5, Glucose 92, Calcium 8.7 Radiography Diagnostic Testing: Radiology Impression Pelvis X-Ray 05/18/25 13:00 IMPRESSION: Status post right total hip replacement. No evidence of fracture or dislocation Reading Location: [place] [address] Physical Exam Narrative GENERAL: cooperative HEENT: Atraumatic; normocephalic EYES; Anicteric, Normal Conjunctiva NECK; supple, normal thyroid, RESPIRATORY: Diminished to auscultation CARDIOVASCULAR: Regular S1 S2, GI: soft, normoactive bowel sounds, : No Renal angle tenderness; EXTREMITIES: No edema, no clubbing, MUSCULOSKELETAL: no muscle wasting NEURO: Awake; no lateralizing signs. SKIN: No Rash PSYCH; Flat affect Assessment & Plan Assessment/Plan (1) Anemia: PLAN: Patient is hemoglobin was 7.7 did require transfusion last time he is here. Will follow-up his hemoglobin here given his surgery and follow that up in the morning. PLAN: Plan Patient is an 84-year-old gentleman on systemic anticoagulation with apixaban for paroxysmal A-fib who fell in the shower developed significant left lower extremity was admitted by plastic surgery patient underwent wound debridement with wound VAC placement. 1. Left leg hematoma following accidental fall ? Patient underwent wound debridement and wound VAC placement by Dr. Leblanc with plastic surgery. Subsequent management involving the wound VAC defer to primary service 2. Paroxysmal atrial fibrillation ? Patient is on apixaban held given his presentation. Decision to resume systemic anticoagulation deferred to plastic surgery 3. Chronic congestive heart failure with reduced ejection fraction ? Echo from April 14, 2025 demonstrated EF of 40% 4. Anemia ? Secondary to acute blood loss anemia following fall with left hematoma exacerbated by use of apixaban. Monitoring H&H with plans to transfuse if hemoglobin falls below 7 or patient is deemed to be symptomatic 5. Chronic kidney disease stage IIIb ? Kidney function at baseline 6. Cardiac amyloidosis - Continue with tafamidis 7. Coronary artery disease ? From previous STEMI. Patient was treated with PTCA patient remains on guideline directed medical therapy 8. History of V-fib/flutter ? Status post AICD placement 9. DVT prophylaxis ? Defer to primary service Charges/Coding Visit Charges Inpatient E&M: 13935 Subs Hosp L2
--- NOTE | 2025-05-19 12:01 | DS.PCM_ITS ---
Providers Date of Admission: 05/18/25 Primary Care Physician: Ramu Pelaez MD Consultations 05/18/25 15:00 Consult: Onc/Wound/rip saw operator Routine Comment: 05/18/25 15:07 Consult: Hospitalist Routine Consulting Provider: [place] Reason for Consult: Medical comanagement EMERGENT Consult: No MD Notified: Yes Date Notified: 05/18/25 Time Notified: 15:07 Method of Notification: Text Diagnosis Discharge Diagnosis (1) Anemia: Status: Acute Code(s): D64.9 - Anemia, unspecified Medications at Discharge Home Medications tafamidis 61 mg capsule (Vyndamax) 61 mg PO DAILY amyloidosis 10/05/20 apixaban 5 mg tablet 5 mg PO BID BLOOD THINNER #180 tabs 03/15/25 Held on 05/13/25. Instructions: Resume on 05/20/25. acetaminophen 500 mg capsule 1,000 mg PO Q6H PRN fever or pain 05/11/25 atorvastatin 40 mg tablet 40 mg PO DAILY HLD 05/16/25 spironolactone 25 mg tablet 25 mg PO DAILY HTN 05/16/25 Hospital Course Operations - (Date of Procedure: 05/18/25 Pre-Operative Diagnosis: Left anterior leg wound after hematoma Post-Operative Diagnosis: Same Surgery/Procedure Performed: Debridement of left anterior leg wound 10 x 6 cm Irrigating nondisposable wound VAC placement 60 cm?) Summary of Care Provided Minutes Spent on Discharge: 30 Hospital Course: On 05/18/2025 he underwent above-mentioned surgery with Dr. Joseph of without apparent intraoperative complications. Patient was transferred to PACU and awoke from anesthesia without issue. He was transferred to [facility] floor and kept overnight for observation. Hospital medicine was consulted for medical comanagement. Postoperative labs were ordered same day which were stable and repeat blood work this morning stable. There were no concerns overnight. He has not needed any oral narcotics for pain control. Today is postop day 1 he was evaluated therapies and recommended discharge home with help. His wound VAC output showed cola colored drainage, his hemoglobin was stable at 8.4. He was started on chemical DVT prophylaxis with subcutaneous Lovenox today. Dr. Joseph evaluated patient as well. His irrigating wound VAC was removed and replaced with home wound VAC therapy. He was instructed to resume his chronic Eliquis starting today. Patient states he will discuss with his PCP Dr. Osman Ayala prior to starting. He was set up for home health for wound VAC management with 3 times a day changes. He will follow-up at the wound center with Dr. Joseph this coming 05/23/2025. He was encouraged to take frequent walks to prevent blood clots and contact our office with any concerns. Patient was agreeable to plan. Physical Exam Narrative Afebrile/VSS Home wound VAC placed with good seal Thin pink output. Moves bilateral lower extremities spontaneously and smoothly. Grossly normal strength with hip flexion, knee extension, dorsiflexion, plantarflexion bilaterally. SCD on right lower extremity No leg edema Foot is pink and well perfused. Weight / BMI Weight Weight: 196 lb 3.382 oz Body Mass Index (BMI) 28.1 ABG / Lab / Microbiology Data 05/19/25 06:18 05/19/25 06:18 Laboratory: Laboratory Results - last 24 hr 05/18/25 22:29: WBC 11.1 H, RBC 2.65 L, Hgb 8.1 L, Hct 25.8 L, MCV 97.4 H, MCH 30.6, MCHC 31.4 L, RDW Std Deviation 50.2 H, RDW Coeff of Karyna 14.3, Plt Count 439, MPV 9.7, Immature Gran % (Auto) 0.500, Neut % (Auto) 73.8 H, Lymph % (Auto) 11.2 L, [place] % (Auto) 11.0 H, Eos % (Auto) 2.9, Baso % (Auto) 0.6, Absolute Neuts (auto) 8.2 H, Absolute Lymphs (auto) 1.24, Nucleated RBC % 0, Sodium 137, Potassium 4.5, Chloride 105, Carbon Dioxide 21.7, Anion Gap 10, BUN 26 H, C reatinine 1.65 H, Estim Creat Clear Calc 38.10 L, Est GFR (MDRD) Non-Af 41 L, BUN/Creatinine Ratio 15.5, Glucose 112 H, Calcium 8.9 05/19/25 06:18: WBC 10.5, RBC 2.66 L, Hgb 8.4 L, Hct 25.7 L, MCV 96.6 H, MCH 31.6, MCHC 32.7, RDW Std Deviation 50.0 H, RDW Coeff of Karyna 14.1, Plt Count 438, MPV 9.6, Immature Gran % (Auto) 0.800, Neut % (Auto) 70.7 H, Lymph % (Auto) 12.4 L, [place] % (Auto) 11.7 H, Eos % (Auto) 3.7, Baso % (Auto) 0.7, Absolute Neuts (auto) 7.4, Absolute Lymphs (auto) 1.30, Nucleated RBC % 0, Sodium 138, Potassium 4.7, Chloride 106, Carbon Dioxide 21.4, Anion Gap 11, BUN 24 H, C reatinine 1.54 H, Estim Creat Clear Calc 40.82 L, Est GFR (MDRD) Non-Af 44 L, BUN/Creatinine Ratio 15.5, Glucose 92, Calcium 8.7 Radiography Diagnostic Testing: Radiology Impression Pelvis X-Ray 05/18/25 13:00 IMPRESSION: Status post right total hip replacement. No evidence of fracture or dislocation Reading Location: [place] [address] D/C Instructions DC O2, CPAP, BIPAP Needs Home O2 Discharge instructions: No Meaningful Use Info Meaningful Use Meaningful Use Diagnoses (Choose all that apply): None applicable Discharge Plan Admission Admit Date/Time: 05/18/25 15:00 Primary Reason for Your Visit: Left leg debridement and wound VAC placement Attending Provider: Celestino Simons Primary Care Provider: Ramu Pelaez Consulting Providers: [place]; Rangel Joseph Instructions Additional Instructions / Restrictions: Operations Performed: Left leg debridement and wound VAC placement Instructions for My Care at Home or Healthcare Facility The following instructions will help you know what to expect in the days following surgery. These are general instructions. Your surgeon and therapist may give you special instructions, which vary to some degree based on your specific procedure -- follow those as directed. Do not, however, hesitate to call if you have any questions or concerns. Wound Care * Continuous wound VAC therapy with 3 times a week changes with home health services. [ ] ? Activities * Get up slowly and ensure your balance is good before starting to move. Take frequent walks. * For the first 4 weeks after surgery, try to balance your activity, allowing time for rest. * Avoid lifting, pushing, or pulling anything over 5 pounds. * Do not drive or operate heavy machinery within 24 hrs of surgery or while taking narcotic pain medication.? Pain Control/Medications * OK to resume your Eliquis starting today. * If you received an anesthetic block, your hand or arm may be numb for several hours. You will be discharged to home with medications, including an oral pain medication (analgesic). Rest and elevation are still one of the most important factors for pain control. Take your pain medication as needed, but do not wait for the pain to become out of control. * For severe pain, you may take prescription pain medication as directed, but please note that this may also contain Tylenol (e.g. Percocet). Do not take more than 4000mg of Tylenol (acetaminophen) from all sources daily.? * Pain medication may cause some lethargy, nausea, and or constipation. You should not drive/operate dangerous machinery while taking these medications. If these or other symptoms become significantly problematic, please your surgeon's office. * If prescribed oral antibiotics (Keflex, Clindamycin, or others), please take prescription for full duration as instructed. You should not have any pills remaining once completed (refills are written for your convenience should the course need to be extended, but generally they are not required). Diet (what I can eat): regular diet. Follow up * We will see you on Friday at the wound care center with Dr. Joseph 03/23/25 Follow-up appointment reminders:? (A list of any scheduled appointments is at the end of this document)? At your earliest convenience, please call [phone] to confirm/schedule a follow-up appointment with [ ] in clinic. When to call your surgeon: * If any signs of surgical site infection develop: redness, pus, pain, increased swelling or foul odor at the incision site, fever, cold and clammy skin, or confusion. * Consistent temperature above 101?F (38.3?C). * The affected area gets swollen or much more painful. * You have excessive bleeding from surgical site (soaking through). If you experience difficulty breathing and/or shortness of breath, seek immediate medical attention. If experiencing any of the above complications or if you have any questions, call [phone] Discharge Orders/Prescriptions Prescriptions: No Action acetaminophen 500 mg capsule 1,000 mg PO Q6H PRN (Reason: fever or pain) atorvastatin 40 mg tablet 40 mg PO DAILY spironolactone 25 mg tablet 25 mg PO DAILY Vyndamax 61 mg capsule 61 mg PO DAILY apixaban 5 mg tablet 5 mg PO BID Qty: 180 3RF Referrals / Follow Up: Ramu Pelaez MD [Primary Care Provider, Family Practice] Disposition Disposition (needs filled in before D/C Order can be placed): Home Health Service
--- NOTE | 2025-05-19 12:29 | PHA.DC.MR.R ---
Pharmacy [place] Med Reconciliation Pharmacy Service has performed discharge medication reconciliation for this patient. The patient's discharge medication list was reviewed for discrepancies and discrepancies were resolved. Medications at Discharge Home Medications tafamidis 61 mg capsule (Vyndamax) 61 mg PO DAILY amyloidosis 10/05/20 apixaban 5 mg tablet 5 mg PO BID BLOOD THINNER #180 tabs 03/15/25 Held on 05/13/25. Instructions: Resume on 05/20/25. acetaminophen 500 mg capsule 1,000 mg PO Q6H PRN fever or pain 05/11/25 atorvastatin 40 mg tablet 40 mg PO DAILY HLD 05/16/25 spironolactone 25 mg tablet 25 mg PO DAILY HTN 05/16/25
== END 2025-05-19 14:35 | disposition home health service (06) ==
LOC: SDC 16:00 → MS3 16:00
PROVIDERS: Physician Assistant; Admitting Provider Surgery Plastic and Reconstructive Surgery; PCP Family Medicine; Referring Provider Surgery Plastic and Reconstructive Surgery; Visit Provider Internal Medicine
PROC: (CPT 11043; principal; 2025-05-18 13:05)
DX: L97.929 Non-pressure chronic ulcer of unspecified part of left lower leg with unspecified severity (principal); E85.4 Organ-limited amyloidosis; I50.42 Chronic combined systolic (congestive) and diastolic (congestive) heart failure; I48.0 Paroxysmal atrial fibrillation; I42.8 Other cardiomyopathies; I43 Cardiomyopathy in diseases classified elsewhere; N18.32 Chronic kidney disease, stage 3b; D62 Acute posthemorrhagic anemia; E78.00 Pure hypercholesterolemia, unspecified; S81.812A Laceration without foreign body, left lower leg, initial encounter; Z86.718 Personal history of other venous thrombosis and embolism; Z79.01 Long term (current) use of anticoagulants; I25.10 Atherosclerotic heart disease of native coronary artery without angina pectoris; Z95.810 Presence of automatic (implantable) cardiac defibrillator; S80.12XA Contusion of left lower leg, initial encounter; W18.2XXA Fall in (into) shower or empty bathtub, initial encounter; Z79.899 Other long term (current) drug therapy
CPT/HCPCS: 11043; 11046 ×2; 00400; 36415; 72170; 80048; 85025; 94668; 96361; 96365; 96366; 96372; 97162; 97166; 99221; G0378

== ENCOUNTER → 2025-06-07 | Outpatient (CLI) | payer MEDICARE, SELFPAY ==
[2025-06-07 13:53] VITALS: BP 136/48; PULSE 58; RESP 16; O2SAT 96
== END | disposition home or self-care (01) ==
PROVIDERS: PCP Family Medicine; Referring Provider Surgery Plastic and Reconstructive Surgery; Visit Provider Surgery Plastic and Reconstructive Surgery
DX: M25.551 Pain in right hip (principal)